=== PATIENT | female | born 1930 | race Two or more races ===

== ENCOUNTER 2017-11-08 02:41 | Observation (INO) | payer MEDICARE, BC ==
--- NOTE | 2017-11-08 03:00 | ED ---
General Adult HPI - General Chief complaint: Back Pain/Injury Stated complaint: Fall Time Seen by Provider: 11/08/17 02:41 Source: patient, EMS, RN notes reviewed Mode of arrival: EMS Limitations: physical limitation - History of Present Illness Initial comments: This is an 87-year-old female presents emergency Department after she had fallen outside of her house hitting her head on a doorknob and then falling onto her back. Patient went to [facility] where she was evaluated had CT of her head neck and thoracic and lumbar spine. Patient was diagnosed with a laceration to the head which was repaired at [facility] and diagnosed with left rib fractures at 11 and 12 L1 compression fracture and transverse process fracture of L1. According to the ER physician at that facility the patient was not feeling well enough to go home and there hospitalist did not feel comfortable keeping the patient there. - Related Data Home Medications Medication Instructions Recorded Confirmed Albuterol Nebulized [Ventolin 2.5 mg INHALATION RT-QID 04/18/16 07/24/16 Nebulized] Aspirin EC [Ecotrin Low Dose] 81 mg PO DAILY 04/18/16 07/24/16 Calcium Carbonate [Calcium] 300 mg PO DAILY 04/18/16 07/24/16 Cyanocobalamin [Vitamin B-12] 500 mcg PO DAILY 04/18/16 07/24/16 Herb-Lax 1 tab PO HS 04/18/16 07/24/16 Metoprolol Tartrate [Lopressor] 25 mg PO BID 04/18/16 07/24/16 [place]-3 Fatty Acids/Fish Oil [Fish 1 cap PO DAILY 04/18/16 07/24/16 Oil 1,000 mg Softgel] Omeprazole 20 mg PO BID 04/18/16 07/24/16 Simvastatin [Zocor] 40 mg PO HS 04/18/16 07/24/16 Vitamin E (Dl,Tocopheryl Acet) 400 unit PO DAILY 04/18/16 07/24/16 [Vitamin E] Ipratropium Nebulized [Atrovent 0.5 mg INHALATION RT-QID 07/24/16 07/24/16 Nebulized] Isosorbide Mononitrate ER [Imdur] 60 mg PO DAILY 07/24/16 07/24/16 Multivitamins, Thera [Multivitamin 1 tab PO DAILY 07/24/16 07/24/16 (formulary)] amLODIPine [Norvasc] 10 mg PO DAILY 07/24/16 07/24/16 Previous Rx's Medication Instructions Recorded Ipratropium Nebulized [Atrovent 0.5 mg INHALATION Q6HR #50 neb 07/24/16 Nebulized] predniSONE 20 mg PO BID #8 tab 07/24/16 Allergies Allergy/AdvReac Type Severity Reaction Status Date / Time amoxicillin [From Augmentin] Allergy Unknown Unknown Verified 11/08/17 02:54 clavulanic acid Allergy Unknown Unknown Verified 11/08/17 02:54 [From Augmentin] Cephalosporins Allergy Unknown Verified 07/24/16 15:58 sulfamethoxazole Allergy Unknown Verified 07/24/16 15:58 [From Bactrim] tetanus and diphtheria Allergy Itching Verified 11/08/17 02:54 toxoids trimethoprim [From Bactrim] Allergy Unknown Verified 07/24/16 15:58 Review of Systems ROS Statement: Those systems with pertinent positive or pertinent negative responses have been documented in the HPI. ROS Other: All systems not noted in ROS Statement are negative. Past Medical History Past Medical History: Coronary Artery Disease (CAD), COPD, GERD/Reflux, Hyperlipidemia, Hypertension, Myocardial Infarction ([place]), Osteoarthritis (OA) Additional Past Medical History / Comment(s): INCONT OF URINE WEARS A PAD, BRONCHITIS, UTI ON CIPRO, HOME O2 2 LITERS AT HS.DAUGHTER STATED "PT HAS HAS CHRONIC DIARRHEA FOR 20 YEARS." Last Myocardial Infarction Date:: 1993 History of Any Multi-Drug Resistant Organisms: None Reported Past Surgical History: Bladder Surgery, Cholecystectomy, Coronary Bypass/CABG, Heart Catheterization Additional Past Surgical History / Comment(s): CATARACTS Past Anesthesia/Blood Transfusion Reactions: No Reported Reaction Past Psychological History: No Psychological Hx Reported Smoking Status: Former smoker Past Alcohol Use History: None Reported Past Drug Use History: None Reported - Past Family History Father Family Medical History: COPD Additional Family Medical History / Comment(s): EMPHYSEMA Mother Family Medical History: Myocardial Infarction ([place]) General Exam - General Exam Comments Initial Comments: GENERAL: Patient is well-developed and well-nourished. Patient is nontoxic and well- hydrated and is in mild distress. ENT: Neck is soft and supple. No significant lymphadenopathy is noted. Oropharynx is clear. Moist mucous membranes. Neck has full range of motion without eliciting any pain. EYES: The sclera were anicteric and conjunctiva were pink and moist. Extraocular movements were intact and pupils were equal round and reactive to light. Eyelids were unremarkable. Patient has quite a bit of ecchymosis around the right eye without bony tenderness PULMONARY: Unlabored respirations. Good breath sounds bilaterally. No audible rales rhonchi or wheezing was noted. CARDIOVASCULAR: There is a regular rate and rhythm without any murmurs gallops or rubs. Patient has tenderness to the left lateral chest wall at about ribs 10, 11 and 12 ABDOMEN: Soft and nontender with normal bowel sounds. No palpable organomegaly was noted. There is no palpable pulsatile mass. SKIN: Patient has a laceration above the right eye which has been repaired NEUROLOGIC: Patient is alert and oriented x3. Cranial nerves II through XII are grossly intact. Motor and sensory are also intact. Normal speech, volume and content. Symmetrical smile. MUSCULOSKELETAL: Normal extremities with adequate strength and full range of motion. Patient has tenderness at the lumbar spine as well. Limitations: physical limitation Course Vital Signs 11/08/17 02:46 Temperature 97.6 F Pulse Rate 90 Respiratory 18 Rate Blood Pressure 166/79 O2 Sat by Pulse 95 Oximetry Medical Decision Making - Medical Decision Making EKG shows sinus rhythm at 82 bpm [place] interval is 240 QRS is 94 QT interval 424 QTC is 495. Patient's EKG shows no ST segment elevation. I reviewed the labs and the CTs and x-rays from [facility]. I spoke with Dr. javier of some physicians and admitted the patient. Disposition Clinical Impression: Fracture of rib of left side, Lumbar compression fracture, Lumbar transverse process fracture, Laceration of forehead Disposition: ADMITTED IP TO THIS HOSP Referrals: Benjamin Dietrich DO [Primary Care Provider] - 1-2 days Time of Disposition: 03:25
[2017-11-08] MEDS ORDERED: SODIUM CHLORIDE 0.9% 1,000 ML IV ONE (03:26)
[2017-11-08] MEDS ORDERED: MORPHINE SULFATE 4MG/4ML SYRG IVP PRN (03:27)
--- NOTE | 2017-11-08 05:26 | P.HPIM ---
History of Present Illness H&P Date: 11/08/17 Chief Complaint: Transferred from [place], fall, pain control The patient is a 87-year-old female was transferred from [place] after she presented to the ER there after she tripped on a rug and fell at home hitting the right side of her forehead and didn't fell backwards and hit her lower back onto a chair, there is no loss of consciousness or amnesia. The patient denied any precipitating symptoms such as chest pain shortness of breath dizziness or syncope. The patient sustained a small scalp laceration approximately 3 cm in length that was sutured in the ER [place]. She had a CT of the head/maxillofacial/cervical/lumbar and T-spine that showed acute fracture of the left 11th and 12th posterior ribs, acute compression fracture of the left transverse process of L1 and chronic compression fractures of T12 and L1. Apparently the ER in [place] was preparing to discharge patient home however there was some concern that her elderly and daughter to be unable to care for the patient, and that she would be a fall risk and that her pain would be difficult to control. Currently the patient feels pretty good was able to move in bed comfortably, perform straight leg raises without difficulty And reported to me that she was ambulatory when they were preparing her for discharge at [place]. Due to the above concerns they tried to admit her to the hospitalist there however they suggested a higher care of management and she was subsequently transferred here to [facility]. Review of the records indicates the patient has advanced COPD and does wear proximally 2 L of oxygen, she also has a history of MD coronary artery disease with a history of 2 vessel CABG aortic stenosis, hyperlipidemia essential hypertension and acid reflux. Review of her labs indicate that her CBC and CMP were pretty normal with exception of a mildly elevated white count at 11.5. Past Medical History Past Medical History: Coronary Artery Disease (CAD), COPD, GERD/Reflux, Hyperlipidemia, Hypertension, Myocardial Infarction ([place]), Osteoarthritis (OA) Additional Past Medical History / Comment(s): INCONT OF URINE WEARS A PAD, BRONCHITIS, UTI ON CIPRO, HOME O2 2 LITERS AT HS.DAUGHTER STATED "PT HAS HAS CHRONIC DIARRHEA FOR 20 YEARS." Last Myocardial Infarction Date:: 1993 History of Any Multi-Drug Resistant Organisms: None Reported Past Surgical History: Bladder Surgery, Cholecystectomy, Coronary Bypass/CABG, Heart Catheterization Additional Past Surgical History / Comment(s): CATARACTS Past Anesthesia/Blood Transfusion Reactions: No Reported Reaction Past Psychological History: No Psychological Hx Reported Smoking Status: Former smoker Past Alcohol Use History: None Reported Past Drug Use History: None Reported - Past Family History Father Family Medical History: COPD Additional Family Medical History / Comment(s): EMPHYSEMA Mother Family Medical History: Myocardial Infarction ([place]) Medications and Allergies Home Medications Medication Instructions Recorded Confirmed Type Albuterol Nebulized [Ventolin 2.5 mg INHALATION RT-QID 04/18/16 07/24/16 History Nebulized] Aspirin EC [Ecotrin Low Dose] 81 mg PO DAILY 04/18/16 07/24/16 History Calcium Carbonate [Calcium] 300 mg PO DAILY 04/18/16 07/24/16 History Cyanocobalamin [Vitamin B-12] 500 mcg PO DAILY 04/18/16 07/24/16 History Herb-Lax 1 tab PO HS 04/18/16 07/24/16 History Metoprolol Tartrate [Lopressor] 25 mg PO BID 04/18/16 07/24/16 History [place]-3 Fatty Acids/Fish Oil [Fish 1 cap PO DAILY 04/18/16 07/24/16 History Oil 1,000 mg Softgel] Omeprazole 20 mg PO BID 04/18/16 07/24/16 History Simvastatin [Zocor] 40 mg PO HS 04/18/16 07/24/16 History Vitamin E (Dl,Tocopheryl Acet) 400 unit PO DAILY 04/18/16 07/24/16 History [Vitamin E] Ipratropium Nebulized [Atrovent 0.5 mg INHALATION Q6HR #50 neb 07/24/16 Rx Nebulized] Ipratropium Nebulized [Atrovent 0.5 mg INHALATION RT-QID 07/24/16 07/24/16 History Nebulized] Isosorbide Mononitrate ER [Imdur] 60 mg PO DAILY 07/24/16 07/24/16 History Multivitamins, Thera [Multivitamin 1 tab PO DAILY 07/24/16 07/24/16 History (formulary)] amLODIPine [Norvasc] 10 mg PO DAILY 07/24/16 07/24/16 History predniSONE 20 mg PO BID #8 tab 07/24/16 Rx Allergies Allergy/AdvReac Type Severity Reaction Status Date / Time amoxicillin [From Augmentin] Allergy Unknown Unknown Verified 11/08/17 02:54 clavulanic acid Allergy Unknown Unknown Verified 11/08/17 02:54 [From Augmentin] Cephalosporins Allergy Unknown Verified 07/24/16 15:58 sulfamethoxazole Allergy Unknown Verified 07/24/16 15:58 [From Bactrim] tetanus and diphtheria Allergy Itching Verified 11/08/17 02:54 toxoids trimethoprim [From Bactrim] Allergy Unknown Verified 07/24/16 15:58 Physical Exam Vitals: Vital Signs Temp Pulse Resp BP Pulse Ox 11/08/17 02:46 97.6 F 90 18 166/79 95 Intake and Output 11/07/17 11/07/17 11/08/17 14:59 22:59 06:59 Other: Weight 47.627 kg Constitutional: No acute distress, conversant, pleasant, obvious facial trauma, sutured 3 cm head laceration with dressing applied Eyes: Anicteric sclerae, moist conjunctiva, no lid-lag, PERRLA, noted orbital contusion hematoma ENMT: NC/AT,Oropharynx clear, no erythema, exudates Neck:Supple, FROM, no masses, or JVD, No carotid bruits; No thyromegaly Lungs: Mild respiratory wheezes and bibasilar crackles, Clear to percussion, Normal respiratory effort, no accessory muscle use Cardiovascular: Heart regular in rate and rhythm, No murmurs, gallops, or rubs no peripheral edema Abdominal: Soft Nontender, nom distended, no guarding, no rebound or rigidity, Normoactive bowel sounds No hepatomegaly, No splenomegaly, No palpable mass No abdominal wall hernia noted Skin: Normal temperature, tone, texture, turgor, No induration No subcutaneous nodules, No rash, lesions, No ulcers Extremities:No digital cyanosis No clubbing, Pedal pulses intact and symmetrical Radial pulses intact and symmetrical Normal gait and station, No calf tenderness Psychiatric: Alert and oriented to person, place and time, Appropriate affect Intact judgement Neuro: Muscles Strength 5/5 in all 4 extremities, Sensation to light touch grossly present throughout, Cranial nerves II-XII grossly intact. No focal sensory deficits Assessment and Plan Assessment: Chronic medical conditions Essential hypertension GERD Dyslipidemia Coronary artery disease with CABG X2 History of MD COPD (1) Lumbar transverse process fracture Current Visit: Yes Status: Acute Code(s): S32.009A - UNSP FRACTURE OF UNSP LUMBAR VERTEBRA, INIT FOR CLOS FX SNOMED Code(s): 626692590 (2) Acute exacerbation of chronic obstructive airways disease Current Visit: No Status: Acute Code(s): J44.1 - CHRONIC OBSTRUCTIVE PULMONARY DISEASE W (ACUTE) EXACERBATION SNOMED Code(s): 090272506 (3) Laceration of forehead Current Visit: Yes Status: Acute Code(s): S01.81XA - LACERATION W/O FOREIGN BODY OF OTH PART OF HEAD, INIT ENCNTR SNOMED Code(s): 350705199 (4) Lumbar compression fracture Current Visit: Yes Status: Acute Code(s): S32.000A - WEDGE COMPRESSION FRACTURE OF UNSP LUMBAR VERTEBRA, INIT SNOMED Code(s): 737529159 (5) Fracture of rib of left side Current Visit: Yes Status: Acute Code(s): S22.32XA - FRACTURE OF ONE RIB, LEFT SIDE, INIT FOR CLOS FX SNOMED Code(s): 62808312 Plan: The patient is admitted anticipated greater than 2 midnight stay with fall sustaining acute left rib fractures, acute compression fracture of the transverse processes of L1, and head laceration repaired in [place]. We'll get an orthopedic consult, manage her pain with oxycodone and Motrin. Consult PTOT. Check a chest x-ray, morning labs CBC CMP BNP and treat her for mild COPD exacerbation scheduled bronchodilator DuoNeb breathing treatment and oral prednisone. We'll resume her home antihypertensive therapy. Continue to follow her clinical course
[2017-11-08] MEDS ORDERED: oxyCODONE-APAP 5-325MG 1 EACH TAB PO PRN (05:31)
[2017-11-08] MEDS ORDERED: predniSONE 20 MG TAB PO STA (05:44)
[2017-11-08] MEDS: BUDESONIDE 0.5 MG/2 ML NEBU INHALATION SCH ×2 (07:38→20:02)
[2017-11-08] MEDS: IPRATROPIUM-ALBUTEROL 3 ML NEB INHALATION SCH ×4 (07:38→20:02)
[2017-11-08 07:50] LABS: Basophils % (A) 0 %; Eosinophils # (A) 0.1 k/uL (0-0.7); Eosinophils % (A) 1 %; HCT 38.9 % (34.0-46.0); HGB 12.4 gm/dL (11.4-16.0); Lymphocytes # (A) 1.4 k/uL (1.0-4.8); Lymphocytes % (A) 16 %; MCH 30.2 pg (25.0-35.0); MCHC 31.9 g/dL (31.0-37.0); MCV 94.7 fL (80.0-100.0); Mean Platelet Volume 7.6; Monocytes # (A) 0.5 k/uL (0-1.0); Monocytes % (A) 6 %; Neutrophils # (A) 6.3 k/uL (1.3-7.7); Neutrophils % (A) 74 %; Platelet Count 234 k/uL (150-450); RBC 4.11 m/uL (3.80-5.40); RDW 12.9 % (11.5-15.5); WBC 8.5 k/uL (3.8-10.6)
[2017-11-08 07:54] LABS: ALT 23 U/L (9-52); AST 27 U/L (14-36); Albumin 4.2 g/dL (3.5-5.0); Alkaline Phosphatase 90 U/L (38-126); Anion Gap 13 mmol/L; Blood Urea Nitrogen 13 mg/dL (7-17); Calcium 9.4 mg/dL (8.4-10.2); Carbon Dioxide 29 mmol/L (22-30); Chloride 99 mmol/L (98-107); Glucose 113 mg/dL (74-99); Sodium 141 mmol/L (137-145); Total Bilirubin 0.5 mg/dL (0.2-1.3)
[2017-11-08] MEDS ORDERED: ONDANSETRON 4 MG TAB PO PRN (08:29)
--- NOTE | 2017-11-08 09:00 | XR ---
EXAMINATION TYPE: XR chest 2V DATE OF EXAM: 11/08/2017 HISTORY: cOPD/fall/rib Fx. REFERENCE: Previous study dated 07/24/2016. FINDINGS: There has been a midline sternotomy. The lungs are overinflated. There is chronic interstitial change. This has worsened slightly. There i s no evidence of pneumonia or edema. The heart is not enlarged. Pleural spaces are clear. There is a wedge compression fracture of the T12 vertebral body. This was noted on a previous, recent CT scan of the spine dated 11/07/2017. IMPRESSION: 1. COPD. 2. MILD, WORSENING INTERSTITIAL CHANGE. 3. WEDGE COMPRESSION FRACTURE, T12.
[2017-11-08] MEDS: DOCUSATE 100 MG CAP PO SCH ×2 (10:08→21:42)
[2017-11-08] MEDS: CITALOPRAM HYDROBROMIDE 20 MG TAB PO SCH (10:08)
[2017-11-08] MEDS: METOPROLOL TARTRATE 25 MG TAB PO SCH ×2 (10:08→21:42)
[2017-11-08] MEDS: IBUPROFEN 400 MG TAB PO SCH ×3 (10:09→21:41)
[2017-11-08] MEDS: FLUTICASONE 50MCG/SPRAY NASAL 16GM EA NOSTRIL SCH (10:09)
[2017-11-08] MEDS: PANTOPRAZOLE 40 MG TABLET PO SCH (10:09)
[2017-11-08] MEDS: ISOSORBIDE MONONITRATE ER 60 MG TAB.ER.24H PO SCH (10:09)
--- NOTE | 2017-11-08 13:08 | P.PN ---
Progress Note - Text Progress Note Date: 11/08/17 patient was seen during morning rounds, no new complaints, awaiting further recs from surgical team
[2017-11-08] MEDS ORDERED: MORPHINE ORAL SOLN 10 MG/5 ML CUP PO PRN (13:15)
[2017-11-08] MEDS: ATORVASTATIN 10 MG TAB PO SCH (21:42)
[2017-11-09] MEDS: BUDESONIDE 0.5 MG/2 ML NEBU INHALATION SCH ×2 (07:26→18:36)
[2017-11-09] MEDS: IPRATROPIUM-ALBUTEROL 3 ML NEB INHALATION SCH ×5 (07:26→18:36)
[2017-11-09] MEDS: PANTOPRAZOLE 40 MG TABLET PO SCH (09:32)
[2017-11-09] MEDS: DOCUSATE 100 MG CAP PO SCH ×2 (09:32→21:38)
[2017-11-09] MEDS: IBUPROFEN 400 MG TAB PO SCH ×3 (09:32→21:39)
[2017-11-09] MEDS: METOPROLOL TARTRATE 25 MG TAB PO SCH ×2 (09:32→21:37)
[2017-11-09] MEDS: CITALOPRAM HYDROBROMIDE 20 MG TAB PO SCH (09:32)
[2017-11-09] MEDS: predniSONE 20 MG TAB PO SCH (09:32)
[2017-11-09] MEDS: ISOSORBIDE MONONITRATE ER 60 MG TAB.ER.24H PO SCH (09:32)
[2017-11-09] MEDS: FLUTICASONE 50MCG/SPRAY NASAL 16GM EA NOSTRIL SCH (09:33)
--- NOTE | 2017-11-09 09:45 | P.CNOR ---
History of Present Illness - HPI Consult date: 11/09/17 History of present illness: This is a 87-year-old female who was admitted after a fall on 11/08/2017. Daughter who is present in the room states the patient tripped over a rug, hit her head on a doorknob and hit her back on a nearby chair. Orthopedics was consulted due to compression fracture and transverse process fracture of lumbar spine. Patient also sustained rib fractures during the fall. Daughter states that the patient did hit her head, but a CT of the head and neck was negative. Daughter states that the patient has been up and walking with a walker, and is very shaky. Patient states that the pain in her back is well controlled. Daughter states the patient received her brace yesterday and wears it when she is out of bed. Patient denies any new complaints today, numbness, tingling, fever or chills. Review of Systems See HPI. Past Medical History Past Medical History: Coronary Artery Disease (CAD), COPD, GERD/Reflux, Hyperlipidemia, Hypertension, Myocardial Infarction ([place]), Osteoarthritis (OA) Additional Past Medical History / Comment(s): INCONT OF URINE WEARS A PAD, BRONCHITIS, UTI ON CIPRO, HOME O2 2 LITERS AT HS.DAUGHTER STATED "PT HAS HAS CHRONIC DIARRHEA FOR 20 YEARS." Last Myocardial Infarction Date:: 1993 History of Any Multi-Drug Resistant Organisms: None Reported Past Surgical History: Bladder Surgery, Cholecystectomy, Coronary Bypass/CABG, Heart Catheterization Additional Past Surgical History / Comment(s): CATARACTS Past Anesthesia/Blood Transfusion Reactions: No Reported Reaction Past Psychological History: No Psychological Hx Reported Smoking Status: Former smoker Past Alcohol Use History: None Reported Past Drug Use History: None Reported - Past Family History Father Family Medical History: COPD Additional Family Medical History / Comment(s): EMPHYSEMA Mother Family Medical History: Myocardial Infarction ([place]) Medications and Allergies Home Medications Medication Instructions Recorded Confirmed Type Metoprolol Tartrate [Lopressor] 25 mg PO BID 04/18/16 11/08/17 History Omeprazole 20 mg PO BID 04/18/16 11/08/17 History Simvastatin [Zocor] 40 mg PO HS 04/18/16 11/08/17 History Isosorbide Mononitrate ER [Imdur] 60 mg PO DAILY 07/24/16 11/08/17 History amLODIPine [Norvasc] 10 mg PO DAILY 07/24/16 11/08/17 History Albuterol Nebulized [Ventolin 2.5 mg INHALATION RT-Q6H 11/08/17 11/08/17 History Nebulized] Ipratropium Nebulized [Atrovent 0.5 mg INHALATION RT-Q6H 11/08/17 11/08/17 History Nebulized] Allergies Allergy/AdvReac Type Severity Reaction Status Date / Time amoxicillin [From Augmentin] Allergy Unknown Unknown Verified 11/08/17 11:25 clavulanic acid Allergy Unknown Unknown Verified 11/08/17 11:25 [From Augmentin] Cephalosporins Allergy Unknown Verified 11/08/17 11:25 sulfamethoxazole Allergy Unknown Verified 11/08/17 11:25 [From Bactrim] tetanus and diphtheria Allergy Itching Verified 11/08/17 11:25 toxoids trimethoprim [From Bactrim] Allergy Unknown Verified 11/08/17 11:25 Physical Examination On exam patient is alert and lying comfortably in bed. Patient is hard of hearing. There is no swelling, erythema or ecchymosis over the lumbar spine. No obvious deformity. Patient has good range of motion of bilateral lower extremities. Sensation intact bilaterally. Bilateral lower extremities are warm and well perfused. Patient has full foot and ankle motion bilaterally without pain or difficulty. Neurovascular status and circulatory status are intact. Results - Labs Labs: H & H 11/08/17 Range/Units 07:12 Hgb 12.4 (11.4-16.0) gm/dL Hct 38.9 (34.0-46.0) % Result Diagrams: 11/08/17 07:12 11/08/17 07:12 Assessment and Plan (1) Fall Current Visit: Yes Status: Acute Code(s): W19.XXXA - UNSPECIFIED FALL, INITIAL ENCOUNTER SNOMED Code(s): 0920610 (2) Fracture of rib of left side Current Visit: Yes Status: Acute Code(s): S22.32XA - FRACTURE OF ONE RIB, LEFT SIDE, INIT FOR CLOS FX SNOMED Code(s): 60302310 (3) Lumbar compression fracture Current Visit: Yes Status: Acute Code(s): S32.000A - WEDGE COMPRESSION FRACTURE OF UNSP LUMBAR VERTEBRA, INIT SNOMED Code(s): 298329398 (4) Lumbar transverse process fracture Current Visit: Yes Status: Acute Code(s): S32.009A - UNSP FRACTURE OF UNSP LUMBAR VERTEBRA, INIT FOR CLOS FX SNOMED Code(s): 859311058 Plan: 1. Wear brace when out of bed. 2. Use walker for ambulation at all times. 3. Physical therapy consult. 4. Continue pain control. 5. Will continue to follow the patient closely. No surgical intervention planned.
[2017-11-09] MEDS: LIDOCAINE 5% PATCH TOPICAL SCH (12:43)
--- NOTE | 2017-11-09 13:38 | P.PN ---
Subjective Progress Note Date: 11/09/17 Principal diagnosis: Patient is seen in follow-up for lumbar compression fracture in COPD exacerbation Patient seen and examined today, her daughter at bedside, she continues to have back pain radiating to the left side of the chest, however she is tolerating by mouth intake denies any fevers or chills denies any shortness of breath continues to use oxygen through nasal cannula at 2 L. Objective - Vital Signs Vital signs: Vital Signs Temp 98.5 F 11/09/17 07:00 Pulse 84 11/09/17 11:26 Resp 16 11/09/17 07:00 BP 111/51 11/09/17 07:00 Pulse Ox 91 L 11/09/17 07:00 Intake & Output 11/08/17 11/09/17 11/09/17 18:59 06:59 18:59 Intake Total 600 Balance 600 Intake: Intake, IV Titration 600 Amount Sodium Chloride 0.9% 1, 600 000 ml @ 75 mls/hr IV . [id number] Rx#:[id number] Other: # Voids 2 1 - Exam Constitutional: vital signs stable, Not in acute distress, pleasant, conversant , sutured laceration of the right side of the forehead 3 cm in length no swelling no ecchymosis looks, intact and dry. Bruising around the eyes Lungs: Decreased breath sounds bilaterally, mild expiratory wheezes. normal respiratory effort Cardiovascular: Regular rate and rhythm, no murmurs, no gallops, no rubs, no peripheral edema Gastrointestinal: Soft, no tenderness to palpation, positive bowel sounds Extremities: No digital cyanosis or clubbing, peripheral pulses palpable and equal over bilateral radial arteries and dorsalis pedis artery, no calf muscle tenderness Psych: Alert, oriented to place, person appropriate affect, intact judgment - Labs CBC & Chem 7: 11/08/17 07:12 11/08/17 07:12 Assessment and Plan Assessment: 87-year-old female with history of CAD, COPD and hypertension. Presented to the hospital after accidental fall at home without loss of consciousness resulted in compression fracture of T12, L1, left sided 11th, 12th rib fracture , laceration over the right side of the forehead status post suturing. She was also found to have acute mild COPD exacerbation, she is on home oxygen 2 L nasal cannula. Patient was transferred from [place] to our hospital for further evaluation by orthopedic team for any recommendations regarding surgical intervention. Orthopedic recommended no immediate surgical intervention, offered the back brace while patient is awake and moving, and further evaluation no patient for possible need for kyphoplasty. Currently she is being managed for mild acute COPD exacerbation. Patient is also being evaluated by PT/OT for possible placement at postacute care facility for some rehab. Plan: #Lumbar transverse process fracture #T12 and L1 compression fracture Pain control Orthopedic evaluated the patient, no immediate recommendations for any surgical intervention, outpatient follow-up for possible kyphoplasty Orthopedic recommended to wear a brace while awake #Hypertension currently controlled continue home meds #Mild COPD exacerbation Continue with prednisone by mouth Continue with home oxygen at 2 L nasal cannula Continue with ICS DuoNeb's when necessary Incentive spirometry #History of CAD status post CABG by 2 Continue with statin and aspirin Metoprolol Imdur #Hyperlipidemia Continue statin #Traumatic laceration of the forehead, status post suturing Local wound care #DVT prophylaxis Heparin subcu 3 times a day #Rib fractures Pain control Advanced age and debility, PT/OT evaluation Possible placement and postacute care Lidocaine patch to be used for pain control Check morning labs
[2017-11-09] MEDS: HEPARIN SODIUM,PORCINE 5,000 UNIT/ML 1 ML VIAL SQ SCH (15:48)
[2017-11-09] MEDS: ATORVASTATIN 10 MG TAB PO SCH (21:37)
[2017-11-10] MEDS: HEPARIN SODIUM,PORCINE 5,000 UNIT/ML 1 ML VIAL SQ SCH ×2 (00:37→07:15)
[2017-11-10 04:14] VITALS: RESP 20; TEMP 97.9
[2017-11-10 07:03] LABS: Anion Gap 10 mmol/L; Blood Urea Nitrogen 21 mg/dL (7-17); Calcium 9.3 mg/dL (8.4-10.2); Carbon Dioxide 32 mmol/L (22-30); Chloride 96 mmol/L (98-107); Glucose 87 mg/dL (74-99); Potassium 4.7 mmol/L (3.5-5.1); Sodium 138 mmol/L (137-145)
[2017-11-10] MEDS: IBUPROFEN 400 MG TAB PO SCH (07:13)
[2017-11-10] MEDS: LIDOCAINE 5% PATCH TOPICAL SCH (07:14)
[2017-11-10] MEDS: METOPROLOL TARTRATE 25 MG TAB PO SCH (07:14)
[2017-11-10] MEDS: ISOSORBIDE MONONITRATE ER 60 MG TAB.ER.24H PO SCH (07:15)
[2017-11-10] MEDS: predniSONE 20 MG TAB PO SCH (07:15)
[2017-11-10] MEDS: PANTOPRAZOLE 40 MG TABLET PO SCH (07:16)
[2017-11-10] MEDS: FLUTICASONE 50MCG/SPRAY NASAL 16GM EA NOSTRIL SCH (07:16)
[2017-11-10] MEDS: DOCUSATE 100 MG CAP PO SCH (07:16)
[2017-11-10] MEDS: CITALOPRAM HYDROBROMIDE 20 MG TAB PO SCH (07:16)
[2017-11-10 07:32] LABS: Basophils % (A) 0 %; Eosinophils % (A) 0 %; HCT 34.9 % (34.0-46.0); HGB 11.7 gm/dL (11.4-16.0); Lymphocytes # (A) 1.5 k/uL (1.0-4.8); Lymphocytes % (A) 14 %; MCH 31.1 pg (25.0-35.0); MCHC 33.5 g/dL (31.0-37.0); Mean Platelet Volume 7.4; Monocytes # (A) 0.6 k/uL (0-1.0); Monocytes % (A) 6 %; Neutrophils # (A) 8.2 k/uL (1.3-7.7); Neutrophils % (A) 78 %; Platelet Count 251 k/uL (150-450); RBC 3.76 m/uL (3.80-5.40); RDW 12.8 % (11.5-15.5); WBC 10.5 k/uL (3.8-10.6)
[2017-11-10] MEDS: BUDESONIDE 0.5 MG/2 ML NEBU INHALATION SCH (07:46)
[2017-11-10] MEDS: IPRATROPIUM-ALBUTEROL 3 ML NEB INHALATION SCH ×2 (07:46→11:20)
--- NOTE | 2017-11-10 08:41 | P.PN ---
Progress Note - Text Progress Note Date: 11/10/17 Patient is a very pleasant 87-year-old female with significant hearing loss who is seen and examined at the bedside for follow-up evaluation for acute fractures of the left 11th and 12th posterior ribs, acute L1 left transverse process fracture, and chronic compression fracture deformities at T12 and L1 that were noted to be found on CT imaging taken at [facility].. She is sitting upright in a bedside chair. She does have a Spinomed TLSO brace intact. She denies any lower extremity weakness or radiculopathy bilaterally. She is moving her legs freely without difficulty. She states her back pain has not been adequately controlled this morning. She continues to wear her brace as instructed. Patient has a history of advanced COPD is currently on O2 nasal cannula. She continues to be seen by medicine. She is known have sustained a fall and presented to the emergency department in [place] after tripping on a rug at home, falling, hitting the right side of her forehead and then falling backwards onto a chair. She was transferred to [facility] for further evaluation. She does have a sutured laceration of the right side of her forehead approximately 3 cm in length and bruising around the eyes following her fall. Physical exam: Patient is awake, alert, and oriented 3 Patient has significant hearing loss and has some difficulty with communication due to her hearing loss Vital signs stable Good chest excursion with deep inspiration and expiration Abdomen soft nontender Patient is sitting upright with her Spinomed TLSO brace intact No significant pain with palpation over the thoracic or lumbar spine Dorsiflexion, plantarflexion, and extensor hallucis longus positive sustained bilaterally Lower extremity strength 5/5 bilaterally No signs or symptoms of DVT; no calf pain No pain with internal and external rotation of the hips bilaterally Neurovascularly intact Assessment: Acute traumatic fracture of the left 11th and 12th posterior ribs Acute L1 left transverse process fracture 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 We will plan to continue with conservative treatment at this time. Patient is to see prescribed and fitted with a Spinomed TLSO brace. Previous imaging indicates patient sustained acute traumatic fracture of the left 11th and 12th posterior ribs, acute L1 left transverse process fracture, and has a history of chronic compression fracture deformities at T12 and L1. Patient should wear this brace while sitting upright at greater than 45, during ambulation, during increase activities, and while working with physical therapy. Brace does not having worn while lying in bed or while bathing. Patient should avoid excessive bending, twisting, lifting; no lifting greater than 10 pounds. Patient may work with physical therapy increase mobility and ambulation with her brace intact. We are currently planning for surgical intervention in regards to her thoracolumbar spine. At this time, will plan to have her follow- up in the outpatient setting for further evaluation and treatment. Patient is clear for discharge from orthopedic spine standpoint. 2. Medicine to continue following the patient closely for her other medical diagnoses including advanced COPD 3. Continue pain control with medications as prescribed 4. Following discharge, patient may follow-up with Kirk Adams PA-C or Dr. Chapin José at [facility] in approximately 2-3 weeks for further evaluation 5. Patient will be discussed in detail with Dr. Chapin José
[2017-11-10] MEDS ORDERED: ASPIRIN 81 MG PO SCH (09:00)
[2017-11-10 09:12] VITALS: BP 126/52
[2017-11-10 11:23] VITALS: PULSE 80
--- NOTE | 2017-11-10 12:49 | P.DS ---
Providers Date of admission: 11/08/17 03:26 Attending physician: Paul Reyes MD Consults: 11/08/17 05:03 Consult Physician Routine Consulting Provider: Jon Geronimo Consult Reason/Comments: Fall - L1 compression fracture, L1 transverse process fracture Do you want consulting provider notified?: Yes, Notify in am [facility] Course: Final diagnosis at discharge # Accidental (trip and fall) trauma without loss of consciousness #Lumbar transverse process fracture #Chronic T12 and Acute L1 vertebrae compression fracture #. Acute left 11th and 12th rib fracture # traumatic laceration of the forehead s/p suturing # Mild, End stage COPD, acute exacerbation Secondary diagnosis #. CAD s/p CABG # Hyperlipidemia Hospital course 87-year-old female with history of CAD, COPD and hypertension. Presented to the hospital after accidental fall at home without loss of consciousness resulted in compression fracture of T12 (chronic), L1(acute), left sided 11th, 12th rib fracture, laceration over the right side of the forehead status post suturing. She was also found to have acute mild COPD exacerbation, she is on home oxygen 2 L nasal cannula. Patient was transferred from [place] to our hospital for further evaluation by orthopedic team for any recommendations regarding surgical intervention. Orthopedic recommended no immediate surgical intervention, offered the back brace while patient is awake and moving, and further evaluation on patient for possible need for kyphoplasty as outpatient . Currently she is being managed for mild acute COPD exacerbation breathing treatments around the clock, and PO systemic steroids, she will be discharge to finish a 5 day course of prednisone, LABA/ICS, spiriva, continue home oxygen , and duoneb PRN. Patient is also being evaluated by PT/OT for possible placement at postacute care facility for some rehab however she did not qualify. patient will be discharged home as she was cleared by orthopedics, with home care. patient and family in agreement and verbalized understanding of the plan patient seen and examined on day of discharge , pain managed with lidocaine patch locally and motrin PRN, tolerating PO intake. patient feels ok at this time, and eager to go home. Constitutional: vital signs stable, Not in acute distress, pleasant, conversant , sutured laceration of the right side of the forehead no swelling no ecchymosis looks, intact and dry. Bruising around the right eye Lungs: Decreased breath sounds bilaterally, mild expiratory wheezes. normal respiratory effort Cardiovascular: Regular rate and rhythm, no murmurs, no gallops, no rubs, no peripheral edema Gastrointestinal: Soft, no tenderness to palpation, positive bowel sounds Extremities: No digital cyanosis , peripheral pulses palpable and equal over bilateral radial arteries and dorsalis pedis artery, no calf muscle tenderness Psych: Alert, oriented to place, person appropriate affect, intact judgment discharge home with home care, in stable clinical condition OP follow up with ortho and PCP remove sutures 7 days after placement , on 11/14/2017 Patient Condition at Discharge: Stable Plan - Discharge Summary Discharge Rx Participant: Yes New Discharge Prescriptions: New Aspirin [Adult Low Dose Aspirin EC] 81 mg PO DAILY #100 tablet. Budesonide-Formot 160-4.5 Mcg [Symbicort 160-4.5 Mcg Inhaler] 2 puff INHALATION BID #1 inhaler Fluticasone Nasal [place] [Flonase Nasal [place]] 2 spray EA NOSTRIL DAILY #1 bottle Ibuprofen [Motrin] 400 mg PO TID PRN #24 tab PRN Reason: Pain Ipratropium-Albuterol Nebulize [Duoneb 0.5 mg-3 mg/3 ml Soln] 3 ml INHALATION RT-QID #40 ampul.neb Lidocaine 5% Patch [Lidoderm 5% Patch] 1 patch TOPICAL DAILY #10 patch predniSONE 40 mg PO DAILY #6 tab Tiotropium [place] [Spiriva] 1 cap INHALATION DAILY #1 device Continue Simvastatin [Zocor] 40 mg PO HS Omeprazole 20 mg PO BID Metoprolol Tartrate [Lopressor] 25 mg PO BID Isosorbide Mononitrate ER [Imdur] 60 mg PO DAILY amLODIPine [Norvasc] 10 mg PO DAILY Discontinued Albuterol Nebulized [Ventolin Nebulized] 2.5 mg INHALATION RT-Q6H Ipratropium Nebulized [Atrovent Nebulized] 0.5 mg INHALATION RT-Q6H Discharge Medication List Metoprolol Tartrate [Lopressor] 25 mg PO BID 04/18/16 [History] Omeprazole 20 mg PO BID 04/18/16 [History] Simvastatin [Zocor] 40 mg PO HS 04/18/16 [History] Isosorbide Mononitrate ER [Imdur] 60 mg PO DAILY 07/24/16 [History] amLODIPine [Norvasc] 10 mg PO DAILY 07/24/16 [History] Aspirin [Adult Low Dose Aspirin EC] 81 mg PO DAILY #100 tablet. 11/10/17 [Rx] Budesonide-Formot 160-4.5 Mcg [Symbicort 160-4.5 Mcg Inhaler] 2 puff INHALATION BID #1 inhaler 11/10/17 [Rx] Fluticasone Nasal [place] [Flonase Nasal [place]] 2 spray EA NOSTRIL DAILY #1 bottle 11/10/17 [Rx] Ibuprofen [Motrin] 400 mg PO TID PRN #24 tab 11/10/17 [Rx] Ipratropium-Albuterol Nebulize [Duoneb 0.5 mg-3 mg/3 ml Soln] 3 ml INHALATION RT -QID #40 ampul.neb 11/10/17 [Rx] Lidocaine 5% Patch [Lidoderm 5% Patch] 1 patch TOPICAL DAILY #10 patch 11/10/17 [Rx] Tiotropium [place] [Spiriva] 1 cap INHALATION DAILY #1 device 11/10/17 [Rx] predniSONE 40 mg PO DAILY #6 tab 11/10/17 [Rx] Follow up Appointment(s)/Referral(s): Benjamin Dietrich, [Primary Care Provider] - 1-2 days Kirk Adams PAC [PHYSICIAN MANAGER PROJECT] - 2 Weeks (Patient may follow-up with Kirk Adams PA-C or Dr. Chapin José at [facility] in 2-3 weeks following discharge. ) Patient Instructions/Handouts: Emphysema (DC), COPD (Chronic Obstructive Pulmonary Disease) (DC), Nutrition Guidelines for People with COPD (DC), Vertebral Compression Fracture (DC) Activity/Diet/Wound Care/Special Instructions: 1. Patient may wear Spinomed TLSO brace for comfort and support while sitting upright at greater than 45, while working with therapy, and while ambulating; patient does not have to wear the brace while lying in bed or bathing 2. Patient should avoid excessive bending, twisting, and lifting; no lifting greater than 10 pounds 3. [facility] - [phone] Care Plan Goals (MU): remove forehead sutures on Friday11/14/2017 Discharge Disposition: HOME WITH HOME HEALTH SERVICES
== END 2017-11-10 15:00 | disposition home health service (06) ==
LOC: EC 02:41 → INTOOBSV 03:26 → 3SUR 03:26
PROVIDERS: ADMIT Family Medicine; ATTEND Family Medicine
DX: S32.019A Unspecified fracture of first lumbar vertebra, initial encounter for closed fracture (principal); S22.080A Wedge compression fracture of T11-T12 vertebra, initial encounter for closed fracture; S22.42XA Multiple fractures of ribs, left side, initial encounter for closed fracture; S01.81XA Laceration without foreign body of other part of head, initial encounter; J44.1 Chronic obstructive pulmonary disease with (acute) exacerbation; I25.10 Atherosclerotic heart disease of native coronary artery without angina pectoris; Z95.1 Presence of aortocoronary bypass graft; E78.5 Hyperlipidemia, unspecified; I10 Essential (primary) hypertension; W01.190A Fall on same level from slipping, tripping and stumbling with subsequent striking against furniture, initial encounter; Y92.009 Unspecified place in unspecified non-institutional (private) residence as the place of occurrence of the external cause; K21.9 Gastro-esophageal reflux disease without esophagitis; I25.2 Old myocardial infarction; Z99.81 Dependence on supplemental oxygen; I35.0 Nonrheumatic aortic (valve) stenosis; D72.829 Elevated white blood cell count, unspecified; M19.90 Unspecified osteoarthritis, unspecified site; R32 Unspecified urinary incontinence; Z87.09 Personal history of other diseases of the respiratory system; Z90.49 Acquired absence of other specified parts of digestive tract; Z87.891 Personal history of nicotine dependence; Z79.82 Long term (current) use of aspirin; Z79.899 Other long term (current) drug therapy; Z79.52 Long term (current) use of systemic steroids; Z88.2 Allergy status to sulfonamides; Z88.0 Allergy status to penicillin; Z88.7 Allergy status to serum and vaccine; H91.90 Unspecified hearing loss, unspecified ear
CPT/HCPCS: 99285 ×2; 96374 ×2; 96361 ×2; 96372 ×2; 94640 ×6; 94760 ×2; 97116; 97110; 97162; 83880; 80053; 80048; 85025 ×2; 71046; G0378 ×3; J1644 ×2; J7512 ×3; J2270

== ENCOUNTER 2018-05-22 12:04 | Inpatient (IN) | payer MEDICARE, BC ==
[2018-05-22] MEDS ORDERED: MIDAZOLAM HCL 100 MG in SODIUM CHLORIDE 0.9% 80 ML IV ONE (12:19)
[2018-05-22] MEDS ORDERED: NALOXONE 0.4 MG/ML 1 ML VIAL IV PRN (12:30)
[2018-05-22] MEDS ORDERED: IPRATROPIUM-ALBUTEROL 3 ML NEB INHALATION PRN (12:30)
--- NOTE | 2018-05-22 12:34 | ED ---
General Adult HPI - General Stated complaint: Respitory Failure Time Seen by Provider: 05/22/18 12:07 Source: EMS, RN notes reviewed, old records reviewed - History of Present Illness Initial comments: 87-year-old female presenting as transfer from outside hospital for hypoxic hypercapnic respiratory failure. Patient was intubated at outside institution. She was initially evaluated, found to be unresponsive, and hypoxic. History obtained by reviewing the medical record and from EMS. Patient had complained of some abdominal pain, she was found at home unresponsive. She normally wears supplemental oxygen 2417 however she was found without her oxygen. Unknown how long she was without supplemental oxygen. Patient did have workup for both altered mental status and abdominal pain prior to transfer. - Related Data Home Medications Medication Instructions Recorded Confirmed Metoprolol Tartrate [Lopressor] 25 mg PO BID 04/18/16 11/08/17 Omeprazole 20 mg PO BID 04/18/16 11/08/17 Simvastatin [Zocor] 40 mg PO HS 04/18/16 11/08/17 Isosorbide Mononitrate ER [Imdur] 60 mg PO DAILY 07/24/16 11/08/17 amLODIPine [Norvasc] 10 mg PO DAILY 07/24/16 11/08/17 Previous Rx's Medication Instructions Recorded Aspirin [Adult Low Dose Aspirin EC] 81 mg PO DAILY #100 tablet. 11/10/17 Budesonide-Formot 160-4.5 Mcg 2 puff INHALATION BID #1 inhaler 11/10/17 [Symbicort 160-4.5 Mcg Inhaler] Fluticasone Nasal [place] [Flonase 2 spray EA NOSTRIL DAILY #1 bottle 11/10/17 Nasal [place]] Ibuprofen [Motrin] 400 mg PO TID PRN #24 tab 11/10/17 Ipratropium-Albuterol Nebulize 3 ml INHALATION RT-QID #40 11/10/17 [Duoneb 0.5 mg-3 mg/3 ml Soln] ampul.neb Lidocaine 5% Patch [Lidoderm 5% 1 patch TOPICAL DAILY #10 patch 11/10/17 Patch] Tiotropium [place] [Spiriva] 1 cap INHALATION DAILY #1 device 11/10/17 predniSONE 40 mg PO DAILY #6 tab 11/10/17 Allergies Allergy/AdvReac Type Severity Reaction Status Date / Time amoxicillin [From Augmentin] Allergy Unknown Unknown Verified 11/08/17 11:25 clavulanic acid Allergy Unknown Unknown Verified 11/08/17 11:25 [From Augmentin] Cephalosporins Allergy Unknown Verified 11/08/17 11:25 sulfamethoxazole Allergy Unknown Verified 11/08/17 11:25 [From Bactrim] tetanus and diphtheria Allergy Itching Verified 11/08/17 11:25 toxoids trimethoprim [From Bactrim] Allergy Unknown Verified 11/08/17 11:25 Review of Systems ROS Statement: Those systems with pertinent positive or pertinent negative responses have been documented in the HPI. ROS Other: All systems not noted in ROS Statement are negative. Past Medical History Past Medical History: Coronary Artery Disease (CAD), COPD, GERD/Reflux, Hyperlipidemia, Hypertension, Myocardial Infarction ([place]), Osteoarthritis (OA) Additional Past Medical History / Comment(s): INCONT OF URINE WEARS A PAD, BRONCHITIS, UTI ON CIPRO, HOME O2 2 LITERS AT HS.DAUGHTER STATED "PT HAS HAS CHRONIC DIARRHEA FOR 20 YEARS." Last Myocardial Infarction Date:: 1993 History of Any Multi-Drug Resistant Organisms: None Reported Past Surgical History: Bladder Surgery, Cholecystectomy, Coronary Bypass/CABG, Heart Catheterization Additional Past Surgical History / Comment(s): CATARACTS Past Anesthesia/Blood Transfusion Reactions: No Reported Reaction Past Psychological History: No Psychological Hx Reported Smoking Status: Former smoker Past Alcohol Use History: None Reported Past Drug Use History: None Reported - Past Family History Father Family Medical History: COPD Additional Family Medical History / Comment(s): EMPHYSEMA Mother Family Medical History: Myocardial Infarction ([place]) General Exam General appearance: other (Intubated and sedated) Head exam: Present: atraumatic, normocephalic Eye exam: Present: normal appearance, PERRL Neck exam: Present: normal inspection. Absent: tenderness, meningismus Respiratory exam: Present: wheezes, rhonchi, decreased breath sounds, prolonged expiratory Cardiovascular Exam: Present: regular rate, normal rhythm GI/Abdominal exam: Present: soft. Absent: distended, tenderness, guarding Extremities exam: Present: normal inspection, normal capillary refill. Absent: pedal edema Neurological exam: Present: other (Intubated and sedated) Skin exam: Present: warm, dry, intact EKG Findings - EKG Comments: EKG Findings:: EKG: Sinus rhythm with sinus arrhythmia, Q waves and T-wave inversion in the inferior leads, rate of 83, AK interval 118, QRS duration 94, QTC 385, no ST segment elevation. Medical Decision Making - Medical Decision Making 87 yo female transferred with hypoxic hypercapnic gustatory failure after being off supplement oxygen for an unknown amount of time. Patient's workup in the referring ER revealed normal head CT, no intracranial hemorrhage, CT abdomen was performed which did not show any acute intra-abdominal pathology. Patient' s initial blood gas showed a CO2 of 110 and a pH is 7.18. Chest x-ray showed concern for some developing CHF versus pneumonia, she was given antibiotics in the emergency department prior to transfer. Repeat chest x-ray upon arrival shows satisfactory placement of endotracheal tube and similar concern for developing pneumonia. Patient has elevated white blood cell count 17.8, hemoglobin 12.3, urinalysis was clear, sodium and potassium within normal limits. CO2 on BMP was 39 which likely relates to chronic CO2 retention. Troponin was negative. Case discussed with orthopedic physician and pulmonary looper fixer regarding ICU management. Repeat ABG pending. Critical Care Time Critical Care Time: Yes Total Critical Care Time: 35 Disposition Clinical Impression: Acute exacerbation of chronic obstructive airways disease, Respiratory failure with hypoxia and hypercapnia Disposition: ADMITTED IP TO THIS HOSP Condition: Serious Is patient prescribed a controlled substance at d/c from ED?: No Referrals: Benjamin Dietrich DO [Primary Care Provider] - 1-2 days Time of Disposition: 12:48 Decision to Admit Reason: Admit from EC Decision Date: 05/22/18 Decision Time: 12:48
--- NOTE | 2018-05-22 12:44 | XR ---
EXAMINATION TYPE: XR chest 1V portable DATE OF EXAM: 05/22/2018 COMPARISON: 11/08/2017 INDICATION: Pain, line placement TECHNIQUE: Single frontal view of the chest is obtained. FINDINGS: The heart size is normal. The pulmonary vasculature is normal. Mild diffuse increased lung markings are through the left upper lung field. Correlate for developing pneumonia or atelectasis. Milder infiltrate is present to the right lower lobe. Pneumonia at this lev el is not excluded. r endotracheal tube tip is 4.3 cm above the cornel. Nasogastric tube transverses the thorax the tip i n the proximal left upper quadrant of the abdomen. IMPRESSION: 1. Lines and catheters discussed above. 2. Correlate for developing left upper lobe pneumonia. Mild infiltrate at the right base may be prese nt as well.
[2018-05-22 13:13] LABS: ABG Base Excess 11.9 mmol/L; ABG Oxygen Saturation 97.8 % (94-97); ABG PO2 111 mmHg (83-108); ABG TCO2 43 mmol/L (19-24)
[2018-05-22 15:44] LABS: ABG Base Excess 13.2 mmol/L; ABG Oxygen Saturation 92.5 % (94-97); ABG PH 7.25 (7.35-7.45); ABG PO2 74 mmHg (83-108); ABG TCO2 43 mmol/L (19-24)
[2018-05-22 15:54] LABS: ABG PCO2 92 mmHg (35-45)
[2018-05-22 15:55] LABS: ABG HCO3 40 mmol/L (21-25)
[2018-05-22] MEDS ORDERED: MORPHINE SULFATE 2 MG/ML SYRINGE IV PRN (16:02)
[2018-05-22] MEDS ORDERED: ACETAMINOPHEN TAB 325 MG TAB PO PRN (16:02)
[2018-05-22] MEDS ORDERED: ARTIFICIAL TEARS-HYPROMELLOSE DROPS 15 ML BTL BOTH EYES PRN (16:02)
[2018-05-22] MEDS ORDERED: POLYETHYLENE GLYCOL 3350 17 GM POWD.PACK PO PRN (16:08)
[2018-05-22] MEDS ORDERED: ALBUTEROL NEBULIZED 1.25 MG/3 ML INHALATION PRN (16:10)
--- NOTE | 2018-05-22 16:49 | P.HPIM ---
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 On arrival [facility] she was unresponsive and was intubated. Initial analysis showed the patient to be tachycardic. She was found to have a white blood cell count of 17.8 and hemoglobin 12.3. She was also found to have slightly elevated BUN/creatinine 21. Her urinalysis was negative. Troponin was negative. BNP was 464. Lactic acid was 1.6. An influenza A was negative. She underwent a CT head which showed no acute process, CT abdomen and pelvis that showed no acute intra- abdominal process but possible left lower lobe pneumonia. Chest x-ray was negative. She was given IV fluid and doxycycline. Arrangements were made for transfer here. On arrival here an ABG was performed which showed a pH of 7.2 and a pCO2 of 110. Chest x-ray showed ET tube in good position with possible left sided and right lower lobe infiltrate. Patient seen and examined at bedside the ER. She is currently sedated on the ventilator. Daughter is present at bedside. She is the POA. She states that the patient does not have an advanced directive. She states that this morning, At approximately 5 AM and was complaining of some abdominal discomfort, per the daughter this is not unusual for the patient. The patient's woke up at 7:30 and found her to be shaky and had a decreased level of alertness. His daughter came over and immediately called EMS. By the time she arrived [facility] she was unresponsive and subsequently intubated. The family has noticed that she has had a decline over the last 2 weeks. She's been more tired and taking more naps than normal but having poor sleep at night. They also noted that she had one day of chills that she has not complained of this in almost 2 weeks. She has been having some increasing shortness of breath with movement. She isn't fatiguing more frequently and having to a seated and rest when she is leaving the house. They report that she saw her lidder on Friday in [place] and he did decrease to of her medications. She has been intubated in the past the last time was 2 years ago. Her last hospitalization was in October 2017 for a fall and compression fractures. Review of Systems ROS unobtainable: due to mental status Past Medical History Past Medical History: Coronary Artery Disease (CAD), COPD, GERD/Reflux, Hyperlipidemia, Hypertension, Myocardial Infarction ([place]), Osteoarthritis (OA) Additional Past Medical History / Comment(s): INCONT OF URINE WEARS A PAD, BRONCHITIS, UTI, HOME O2 2 LITERS AT HS, Chronic diarrhea Last Myocardial Infarction Date:: 1993 History of Any Multi-Drug Resistant Organisms: None Reported Past Surgical History: Bladder Surgery, Cholecystectomy, Coronary Bypass/CABG, Heart Catheterization Additional Past Surgical History / Comment(s): CATARACTS Past Anesthesia/Blood Transfusion Reactions: No Reported Reaction Past Psychological History: No Psychological Hx Reported Smoking Status: Former smoker Past Alcohol Use History: None Reported Additional Past Alcohol Use History / Comment(s): STARTED SMOKNG AT AGE 14(1944) , QUIT AGE 63 SMOKED 1 PPD. Past Drug Use History: None Reported Additional History: LIVES AT HOME WITH HER SPOUSE, USES WALKER WHEN UP HAS HOME 02 2 LITERS N/C ATC - Past Family History Father Family Medical History: COPD Additional Family Medical History / Comment(s): EMPHYSEMA Mother Family Medical History: Myocardial Infarction ([place]) Medications and Allergies Home Medications Medication Instructions Recorded Confirmed Type Metoprolol Tartrate [Lopressor] 25 mg PO BID 04/18/16 05/22/18 History Omeprazole 20 mg PO BID 04/18/16 05/22/18 History Simvastatin [Zocor] 40 mg PO HS 04/18/16 05/22/18 History Isosorbide Mononitrate ER [Imdur] 60 mg PO DAILY 07/24/16 05/22/18 History amLODIPine [Norvasc] 10 mg PO DAILY 07/24/16 05/22/18 History Aspirin [Adult Low Dose Aspirin EC] 81 mg PO DAILY #100 tablet. 11/10/1705/22 Rx Ipratropium-Albuterol Nebulize 3 ml INHALATION RT-QID #40 11/10/17 05/22/18 Rx [Duoneb 0.5 mg-3 mg/3 ml Soln] ampul.neb Calcium Carbonate [Calcium] 600 mg PO DAILY 05/22/18 05/22/18 History Cholecalciferol [Vitamin D3] 400 unit PO DAILY 05/22/18 05/22/18 History Cyanocobalamin (Vitamin B-12) 2,500 mcg PO DAILY 05/22/18 05/22/18 History [Vitamin B12] Docusate [Colace] 100 mg PO BID 05/22/18 05/22/18 History Fluticasone Nasal [place] [Flonase 1 spray EA NOSTRIL DAILY 05/22/18 05/22/18 History Nasal [place]] Fluticasone/Salmeterol [Advair 1 puff PO RT-BID 05/22/18 05/22/18 History 500-50 Diskus] Multivits,Th W-Ca,Fe,Oth Min 1 tab PO DAILY 05/22/18 05/22/18 History [Therapeutic M] [place]-3 Fatty Acids/Fish Oil 1 cap PO DAILY 05/22/18 05/22/18 History [[place]-3 Fish Oil 1,200 mg Sfgl] Polyethylene Glycol 3350 [Miralax] 17 gm PO BID PRN 05/22/18 05/22/18 History Vitamin E (Dl,Tocopheryl Acet) 400 unit PO DAILY 05/22/18 05/22/18 History [Vitamin E] Allergies Allergy/AdvReac Type Severity Reaction Status Date / Time amoxicillin [From Augmentin] Allergy Unknown Unknown Verified 05/22/18 13:16 clavulanic acid Allergy Unknown Unknown Verified 05/22/18 13:16 [From Augmentin] Cephalosporins Allergy Unknown Verified 05/22/18 13:16 sulfamethoxazole Allergy Unknown Verified 05/22/18 13:16 [From Bactrim] tetanus and diphtheria Allergy Itching Verified 05/22/18 13:16 toxoids trimethoprim [From Bactrim] Allergy Unknown Verified 05/22/18 13:16 Physical Exam Osteopathic Statement: *. No significant issues noted on an osteopathic structural exam other than those noted in the History and Physical/Consult. Vitals: Vital Signs Pulse Resp BP Pulse Ox 05/22/18 14:30 75 16 94/58 90 L 05/22/18 14:15 75 16 93/55 91 L 05/22/18 14:00 93 16 101/60 92 L 05/22/18 13:45 87 16 103/56 93 L 05/22/18 13:30 87 16 105/59 98 05/22/18 13:15 82 10 L 106/59 96 05/22/18 13:00 88 10 L 106/68 96 05/22/18 12:45 90 10 L 108/74 98 05/22/18 12:30 77 10 L 117/65 100 05/22/18 12:17 100 Intake and Output 05/22/18 05/22/18 05/22/18 06:59 14:59 22:59 Other: Voiding Method Indwelling Catheter Weight 57 kg General: Ill-appearing, maximal distress, sedated on vent, cachectic appearing, appears at stated age Derm: no unusual rashes/lesions no unusual ecchymoses, warm, dry Head: atraumatic, normocephalic, symmetric Eyes: EOMI, no lid lag, anicteric sclera, pupils equal round reactive to light ENT: Nose and ears atraumatic, ET tube in place Neck: No thyromegaly, no cervical lymphadenopathy, trachea midline, supple Mouth: no lip lesion, mucous membranes dry Cardiovascular: S1S2 reg, no murmur, positive posterior tibial pulse bilateral, trace edema left lower extremity, capillary refill less than 2 seconds Lungs: Or stress sounds bilaterally, sedated on ventilator, no rhonchi, no rales Abdominal: soft, nontender to palpation, no guarding, no appreciable organomegaly, normal bowel sounds Ext: no gross muscle atrophy, muscle strength 5 out of 5 in all 4 extremities grossly, no contractures, Neuro: Biceps reflexes 2 out of 4, withdrawal to pain in bilateral upper extremities Psych: Sedated on vent Results CBC & Chem 7: 05/22/18 16:47 05/22/18 16:47 Labs: Abnormal Lab Results - Last 24 Hours (Table) 05/22/18 05/22/18 Range/Units 13:07 15:40 ABG pH 7.20 L 7.25 L (7.35-7.45) ABG pCO2 102 H* 92 H* (35-45) mmHg ABG pO2 111 H 74 L (83-108) mmHg ABG HCO3 40 H* 40 H* (21-25) mmol/L ABG Total CO2 43 H 43 H (19-24) mmol/L ABG O2 Saturation 97.8 H 92.5 L (94-97) % Comments: EKG shows normal sinus rhythm at a rate of 83. Chest x-ray: report reviewed, image reviewed (Imaging reviewed by myself appears to be left upper and lower lobe infiltrates and possible right-sided infiltrate) Thrombosis Risk Factor Assmnt - DVT/VTE Prophylaxis DVT/VTE Prophylaxis: Pharmacologic Prophylaxis ordered Assessment and Plan Assessment: CAD acquired pneumonia, possible gram-negative -Levaquin secondary to multiple ALLERGIES as able. -Legionella urinary antigen, sputum culture -IV fluids -Repeat check stat CBC, CMP, lactic acid, and blood cultures -Check influenza nasal swab Acute exacerbation of COPD stage 3/4 -Bronchodilators -Steroids -Pulmonary hygiene -Pulmonary/critical care recommendations Acute on chronic hypoxic hypercapnic respiratory failure -Treatment as above -Vent management -Check stat ABG rechecked with pH of 7.25, pCO2 92.3, PaO2 74.3 vent rate increased to 20 from 16 as patient was not breathing above Hypertension, currently borderline hypotensive -Hold Norvasc, Lopressor, and Imdur Dyslipidemia -Hold statin at this time ASCAD - ASA, statin on hold GERD - IV pepcid The patient is admitted with an anticipated greater than 2 midnight stay for evaluation of Pneumonia and COPD exacerbation. Surrogate decision-maker: DAughter Rebeca CODE STATUS:Full DVT prophylaxis: Lovenox Discussed with: ED physician, Dr. Washington, Family, nursing Anticipated discharge date: 5-[address]: undetermined A total of 45 minutes of critical care time was spent on this complex patient.
[2018-05-22 17:21] LABS: HCT 35.3 % (34.0-46.0); Hypochromasia Slight; MCH 30.7 pg (25.0-35.0); MCHC 31.3 g/dL (31.0-37.0); Platelet Count 302 k/uL (150-450); WBC 13.3 k/uL (3.8-10.6)
[2018-05-22 17:29] LABS: INR 1.1 (<1.2); Prothrombin Time 10.6 sec (9.0-12.0)
[2018-05-22] MEDS: IPRATROPIUM-ALBUTEROL 3 ML NEB INHALATION SCH ×2 (17:30→19:59)
[2018-05-22] MEDS ORDERED: ALBUTEROL NEBULIZED 2.5 MG/3 ML INHALATION PRN (17:50)
[2018-05-22 17:53] LABS: ALT 29 U/L (9-52); AST 36 U/L (14-36); Alkaline Phosphatase 93 U/L (38-126); Anion Gap 6 mmol/L; Blood Urea Nitrogen 27 mg/dL (7-17); Calcium 8.4 mg/dL (8.4-10.2); Carbon Dioxide 35 mmol/L (22-30); Chloride 98 mmol/L (98-107); Glucose 133 mg/dL (74-99); Magnesium 2.2 mg/dL (1.6-2.3); Phosphorus 4.8 mg/dL (2.5-4.5); Potassium 5.1 mmol/L (3.5-5.1); Sodium 139 mmol/L (137-145); Total Bilirubin 0.4 mg/dL (0.2-1.3)
[2018-05-22] MEDS ORDERED: MIDAZOLAM 2 MG/2 ML VIAL IV ONE (17:55)
[2018-05-22 18:00] LABS: Appearance,Urine Clear (Clear); Bacteria,Urine Rare /hpf; Bilirubin,Urine Negative (Negative); Blood,Urine Negative (Negative); Color,Urine Yellow; Glucose,Urine (UA) Negative (Negative); Hyaline Casts,Urine 8 /lpf (0-2); Ketones,Urine Trace (Negative); Leukocyte Esterase,Urine Negative (Negative); Mucus,Urine Occasional /hpf; Nitrite,Urine Negative (Negative); Protein,Urine 1+ (Negative); RBC,Urine 4 /hpf (0-5); Specific Gravity,Urine 1.019 (1.001-1.035); WBC,Urine 1 /hpf (0-5)
[2018-05-22] MEDS: SODIUM CHLORIDE 0.9% 1,000 ML IV SCH (18:02)
--- NOTE | 2018-05-22 18:07 | P.CNPUL ---
History of Present Illness Consult date: 05/22/18 Reason for consult: COPD History of present illness: This is an 87-year-old female patient, with known history of advanced COPDEV1 of 39% of predicted, diffusion capacity of 32% of predicted, whereas been followed up in our office and the patient was brought into the hospital today because of worsening shortness of breath. Apparently the patient was in a good state of health and around 2 days ago she started having cold chills and she was progressively getting more short of breath. This morning, the patient woke up at around 5 AM and she was complaining of shakingAnd worsening dyspnea and she was also noted to have diminished level of consciousness. Based on that, the patient was taken to [facility] and upon arrival she was unresponsive. She was immediately intubated. She was found to have a white cell count of 17.8. Hemoglobin was 12.3. Troponins were negative. BNP level was 464. Lactic acid level was 1.6. Influenza screen was negative. CAT scan of the chest and abdomen showed no acute abnormalities. There was an indication of a possible bibasilar pulmonary infiltrates/pneumonia more so on the left lung base. Based on this, the patient was placed on mechanical ventilator, and she was transferred to [facility] for further evaluation I saw this patient in the ED. She was sedated with Versed drip 1 mg an hour. She was on a mechanical ventilator at the rate of 20, tidal volume of 300, FiO2 of 50% and a PEEP of 5. I increased the rate up to 26. I also increased the flow up to 60. This gave the patient an I:E ratio of 1:4. The patient's blood gases that were done prior to this and change showed a pH of 7.25 with a pCO2 of 92 and pO2 of 74. This was done and FiO2 of 40%. Currently she is on bronchodilators for she is on systemic steroids. He is on IV Solu-Medrol 60 mg every 6 hours. She is also on Levaquin as an empiric antibiotic coverage. No reported aspiration. No reported angina. No reported chest pain. She is known to have previous history of coronary artery disease and she is done coronary artery bypass surgery back in 1993. She has bronchospastic and wheezy. Peak air pressure on the mechanical ventilator 36. Static pressures around 17. ET tube is in a good location at the level of the aortic arch. 3 cm above the cornel. No significant orotracheal secretions. 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, hypertension, hyperlipidemia, previous history of UTI, incontinence to urine, chronic diarrhea, history of aortic stenosis Last Myocardial Infarction Date:: 1993 History of Any Multi-Drug Resistant Organisms: None Reported Past Surgical History: Bladder Surgery, Cholecystectomy, Coronary Bypass/CABG, Heart Catheterization Additional Past Surgical History / Comment(s): CATARACTS Past Anesthesia/Blood Transfusion Reactions: No Reported Reaction Past Psychological History: No Psychological Hx Reported Smoking Status: Former smoker Past Alcohol Use History: None Reported Additional Past Alcohol Use History / Comment(s): STARTED SMOKNG AT AGE 14(1944) , QUIT AGE 63 SMOKED 1 PPD. Past Drug Use History: None Reported - Past Family History Father Family Medical History: COPD Additional Family Medical History / Comment(s): EMPHYSEMA Mother Family Medical History: Myocardial Infarction ([place]) Medications and Allergies Home Medications Medication Instructions Recorded Confirmed Type Metoprolol Tartrate [Lopressor] 25 mg PO BID 04/18/16 05/22/18 History Omeprazole 20 mg PO BID 04/18/16 05/22/18 History Simvastatin [Zocor] 40 mg PO HS 04/18/16 05/22/18 History Isosorbide Mononitrate ER [Imdur] 60 mg PO DAILY 07/24/16 05/22/18 History amLODIPine [Norvasc] 10 mg PO DAILY 07/24/16 05/22/18 History Aspirin [Adult Low Dose Aspirin EC] 81 mg PO DAILY #100 tablet. 11/10/1705/22 Rx Ipratropium-Albuterol Nebulize 3 ml INHALATION RT-QID #40 11/10/17 05/22/18 Rx [Duoneb 0.5 mg-3 mg/3 ml Soln] ampul.neb Calcium Carbonate [Calcium] 600 mg PO DAILY 05/22/18 05/22/18 History Cholecalciferol [Vitamin D3] 400 unit PO DAILY 05/22/18 05/22/18 History Cyanocobalamin (Vitamin B-12) 2,500 mcg PO DAILY 05/22/18 05/22/18 History [Vitamin B12] Docusate [Colace] 100 mg PO BID 05/22/18 05/22/18 History Fluticasone Nasal [place] [Flonase 1 spray EA NOSTRIL DAILY 05/22/18 05/22/18 History Nasal [place]] Fluticasone/Salmeterol [Advair 1 puff PO RT-BID 05/22/18 05/22/18 History 500-50 Diskus] Multivits,Th W-Ca,Fe,Oth Min 1 tab PO DAILY 05/22/18 05/22/18 History [Therapeutic M] [place]-3 Fatty Acids/Fish Oil 1 cap PO DAILY 05/22/18 05/22/18 History [[place]-3 Fish Oil 1,200 mg Sfgl] Polyethylene Glycol 3350 [Miralax] 17 gm PO BID PRN 05/22/18 05/22/18 History Vitamin E (Dl,Tocopheryl Acet) 400 unit PO DAILY 05/22/18 05/22/18 History [Vitamin E] Allergies Allergy/AdvReac Type Severity Reaction Status Date / Time amoxicillin [From Augmentin] Allergy Unknown Unknown Verified 05/22/18 13:16 clavulanic acid Allergy Unknown Unknown Verified 05/22/18 13:16 [From Augmentin] Cephalosporins Allergy Unknown Verified 05/22/18 13:16 sulfamethoxazole Allergy Unknown Verified 05/22/18 13:16 [From Bactrim] tetanus and diphtheria Allergy Itching Verified 05/22/18 13:16 toxoids trimethoprim [From Bactrim] Allergy Unknown Verified 05/22/18 13:16 Physical Exam Vitals: Vital Signs Pulse Resp BP Pulse Ox 05/22/18 17:30 67 20 96/58 96 05/22/18 17:15 67 20 101/59 97 05/22/18 17:00 70 20 99/59 97 05/22/18 16:45 69 23 92/58 97 05/22/18 16:30 68 32 H 94/57 98 05/22/18 16:15 70 25 H 102/56 98 05/22/18 16:00 72 20 102/59 97 05/22/18 15:45 73 16 111/59 90 L 05/22/18 15:30 75 16 99/52 97 05/22/18 15:15 73 16 98/55 91 L 05/22/18 15:00 73 16 100/59 91 L 05/22/18 14:45 72 16 98/55 91 L 05/22/18 14:30 75 16 94/58 90 L 05/22/18 14:15 75 16 93/55 91 L 05/22/18 14:00 93 16 101/60 92 L 05/22/18 13:45 87 16 103/56 93 L 05/22/18 13:30 87 16 105/59 98 05/22/18 13:15 82 10 L 106/59 96 05/22/18 13:00 88 10 L 106/68 96 05/22/18 12:45 90 10 L 108/74 98 05/22/18 12:30 77 10 L 117/65 100 05/22/18 12:17 100 Intake and Output 05/22/18 05/22/18 05/22/18 06:59 14:59 22:59 Other: Voiding Method Indwelling Catheter Weight 57 kg Intubated, comfortable likely distress. She is well sedated. Thin and frail with a BMI of 24.5 Head exam was generally normal. There was no scleral icterus or corneal arcus. Mucous membranes were moist. Neck was supple and without jugular venous distension, thyromegaly, or carotid bruits. Carotids were easily palpable bilaterally. There was no adenopathy. The patient has an orogastric and orotracheal tube in place. Lungs sounds are diminished and there is scattered expiratory wheezes without the lung his bilaterally. The patient has a barrel chest. Sternum stable clean and intact. Cardiac exam revealed the PMI to be normally situated and sized. The rhythm was regular and no extrasystoles were noted during several minutes of auscultation. The first and second heart sounds were normal and physiologic splitting of the second heart sound was noted. There were no murmurs, rubs, clicks, or gallops. Abdominal exam revealed normal bowel sounds. The abdomen was soft, non-tender, and without masses, organomegaly, or appreciable enlargement of the abdominal aorta. Examination of the extremities revealed easily palpable radial, femoral and pedal pulses. There was no cyanosis, clubbing or edema. Examination of the skin revealed no evidence of significant rashes, suspicious appearing nevi or other concerning lesions. Neurologically the patient is sedated. Results - Laboratory Findings CBC and BMP: 05/22/18 16:47 05/22/18 16:47 ABG ABG pH 7.25 (7.35-7.45) L 05/22/18 15:40 ABG pCO2 92 mmHg (35-45) H* 05/22/18 15:40 ABG pO2 74 mmHg (83-108) L 05/22/18 15:40 ABG O2 Saturation 92.5 % (94-97) L 05/22/18 15:40 PT/INR, D-dimer PT 10.6 sec (9.0-12.0) 05/22/18 16:47 INR 1.1 (<1.2) 05/22/18 16:47 Abnormal lab findings: Abnormal Labs 05/22/18 05/22/18 05/22/18 13:07 15:40 16:47 WBC 13.3 H RBC 3.60 L Hgb 11.0 L ABG pH 7.20 L 7.25 L ABG pCO2 102 H* 92 H* ABG pO2 111 H 74 L ABG HCO3 40 H* 40 H* ABG Total CO2 43 H 43 H ABG O2 Saturation 97.8 H 92.5 L Carbon Dioxide BUN Glucose Phosphorus Total Protein Albumin 05/22/18 16:47 WBC RBC Hgb ABG pH ABG pCO2 ABG pO2 ABG HCO3 ABG Total CO2 ABG O2 Saturation Carbon Dioxide 35 H BUN 27 H Glucose 133 H Phosphorus 4.8 H Total Protein 6.0 L Albumin 3.0 L - Diagnostic Findings Chest x-ray: image reviewed Assessment and Plan Plan: Assessment 1 acute hypoxic/hypercapnic respiratory failure secondary to COPD exacerbation and bilateral lower lobe pneumonia 2 advanced severe COPD with a baseline FEV1 of 39% of predicted 3 acute on top of chronic hypercapnic respiratory failure with acute on chronic respiratory acidosis secondary to above. 4 acute ventilator-dependent history failure secondary to above 5 coronary artery disease appears bypass surgery 6 aortic stenosis 7 hypertension 8 leukocytosis secondary to above Plan Take this patient to the intensive care unit. Switch her to a Diprivan drip for sedation. Continue vent support. Repeat the blood gases and I see in the necessary vent changes will be done. Continue DuoNeb nebulized treatments around the clock. IV Solu Medrol 60 mg every 6 hours. Empiric antibiotic coverage with IV Levaquin. Sputum Gram stain and culture. DVT and GI prophylaxis. Daily chest x-rays. CAT scan of the chest was noted. Echocardiogram in a.m. Maintenance IV fluids normal saline at the rate of 75 mL an hour. Condition is critical. We'll continue to follow make further recommendations based on her progress. She'll discuss with the daughter the bedside.
[2018-05-22] MEDS: LEVOFLOXACIN 750MG-D5W PMX 750 MG in DEXTROSE/WATER 1 150ML.BAG IVPB SCH (18:56)
[2018-05-22] MEDS: methylPREDNISolone SOD SUCCI 125 MG/2 ML VIAL IV SCH (18:58)
[2018-05-22] MEDS: PROPOFOL 1,000 MG in EMPTY BAG 1 BAG IV SCH (19:00)
[2018-05-22 19:06] LABS: Glucose,Whole Blood 138 mg/dL (75-99)
[2018-05-22] MEDS ORDERED: IPRATROPIUM-ALBUTEROL 3 ML NEB INHALATION SCH (20:00)
[2018-05-22] MEDS ORDERED: SYMBICORT 160-4.5 MCG INHALER INHALATION SCH (20:00)
[2018-05-22] MEDS: FAMOTIDINE 20 MG/2 ML VIAL IV SCH (20:29)
[2018-05-22] MEDS: CHLORHEXIDINE GLUCONATE 15 ML CUP MUCOUS MEM SCH (20:29)
[2018-05-22] MEDS: DOCUSATE 100 MG CAP PO SCH (20:30)
[2018-05-23] MEDS: methylPREDNISolone SOD SUCCI 125 MG/2 ML VIAL IV SCH ×5 (00:17→23:17)
[2018-05-23] MEDS: PROPOFOL 1,000 MG in EMPTY BAG 1 BAG IV SCH ×3 (01:18→17:47)
[2018-05-23 02:38] LABS: ABG HCO3 37 mmol/L (21-25); ABG PCO2 63 mmHg (35-45); ABG PH 7.38 (7.35-7.45); ABG PO2 118 mmHg (83-108)
[2018-05-23 02:39] LABS: ABG Base Excess 12.3 mmol/L
[2018-05-23] MEDS: SODIUM CHLORIDE 0.9% 1,000 ML IV SCH ×3 (02:55→23:17)
[2018-05-23 04:39] LABS: ABG Base Excess 8.6 mmol/L; ABG HCO3 35 mmol/L (21-25); ABG Oxygen Saturation 99.2 % (94-97); ABG PCO2 70 mmHg (35-45); ABG PH 7.31 (7.35-7.45); ABG PO2 121 mmHg (83-108); ABG TCO2 37 mmol/L (19-24)
[2018-05-23 05:41] LABS: Basophils % (A) 0 %; Eosinophils % (A) 0 %; HCT 37.2 % (34.0-46.0); HGB 11.8 gm/dL (11.4-16.0); Hypochromasia Slight; Lymphocytes # (A) 0.6 k/uL (1.0-4.8); Lymphocytes % (A) 6 %; MCH 30.9 pg (25.0-35.0); MCHC 31.8 g/dL (31.0-37.0); MCV 97.1 fL (80.0-100.0); Mean Platelet Volume 7.2; Monocytes # (A) 0.4 k/uL (0-1.0); Monocytes % (A) 4 %; Neutrophils # (A) 8.3 k/uL (1.3-7.7); Neutrophils % (A) 88 %; Platelet Count 233 k/uL (150-450); RBC 3.83 m/uL (3.80-5.40); RDW 13.1 % (11.5-15.5); WBC 9.4 k/uL (3.8-10.6)
[2018-05-23 05:52] LABS: Anion Gap 6 mmol/L; Blood Urea Nitrogen 29 mg/dL (7-17); Calcium 7.9 mg/dL (8.4-10.2); Carbon Dioxide 29 mmol/L (22-30); Chloride 103 mmol/L (98-107); Glucose 94 mg/dL (74-99); Phosphorus 4.4 mg/dL (2.5-4.5); Sodium 138 mmol/L (137-145)
[2018-05-23 05:58] LABS: Potassium 5.2 mmol/L (3.5-5.1)
--- NOTE | 2018-05-23 06:57 | XR ---
EXAMINATION TYPE: XR chest 1V portable DATE OF EXAM: 05/23/2018 HISTORY: Tube placement. REFERENCE: Previous study dated 05/22/2018. FINDINGS: There has been a midline sternotomy. The patient is ET tube and NG tube remain in place, un changed in appearance. Lung volumes are prominent. There is left basilar airspace disease. I suspect a small left effusion. Overall aeration of the left lung is improved. IMPRESSION: 1. COPD. 2. MILD LEFT BASILAR AIRSPACE DISEASE. 3. OVERALL IMPROVED AERATION OF THE LEFT LUNG.
[2018-05-23] MEDS: INSULIN ASPART 100 UNIT/ML 1 ML 10 ML VIAL SQ SCH ×2 (07:17→17:42)
[2018-05-23 07:18] LABS: Glucose,Whole Blood 95 mg/dL (75-99)
[2018-05-23] MEDS: IPRATROPIUM-ALBUTEROL 3 ML NEB INHALATION SCH ×4 (07:26→19:42)
[2018-05-23] MEDS: CHOLECALCIFEROL 400 UNIT TAB PO SCH (09:45)
[2018-05-23] MEDS: CYANOCOBALAMIN 500 MCG TAB PO SCH (09:49)
[2018-05-23] MEDS: DOCUSATE 100 MG CAP PO SCH ×2 (09:49→20:19)
[2018-05-23] MEDS: ENOXAPARIN 40 MG/0.4 ML SYRINGE SQ SCH (09:50)
[2018-05-23] MEDS: CALCIUM CARBONATE 500 MG CHEWABLE PO SCH (09:50)
[2018-05-23] MEDS: FAMOTIDINE 20 MG/2 ML VIAL IV SCH ×2 (09:50→20:19)
[2018-05-23] MEDS: CHLORHEXIDINE GLUCONATE 15 ML CUP MUCOUS MEM SCH ×2 (09:50→20:19)
--- NOTE | 2018-05-23 09:54 | P.PN ---
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 On arrival [place] and she was unresponsive and was intubated. Initial analysis showed the patient to be tachycardic. She was found to have a white blood cell count of 17.8 and hemoglobin 12.3. She was also found to have slightly elevated BUN/creatinine 21. Her urinalysis was negative. Troponin was negative. BNP was 464. Lactic acid was 1.6. An influenza A was negative. She underwent a CT head which showed no acute process, CT abdomen and pelvis that showed no acute intra- abdominal process but possible left lower lobe pneumonia. Chest x-ray was negative. She was given IV fluid and doxycycline. Arrangements were made for transfer here. On arrival here an ABG was performed which showed a pH of 7.2 and a pCO2 of 110. Chest x-ray showed ET tube in good position with possible left sided and right lower lobe infiltrate. Repeat ABG showed continue hypercapnia on vent adjustments were made. Chest x-ray showed possible infiltrate and antibiotics were broadened to Levaquin. She was started on steroids, bronchodilators, and antibiotics. Sputum culture was obtained. She was subsequently admitted to the ICU. Patient seen and examined at bedside. Sedated in ICU. Daughter present. No acute events overnight. Objective - Vital Signs Vital signs: Vital Signs Temp 97.6 F 05/23/18 04:00 Pulse 59 L 05/23/18 07:40 Resp 24 05/23/18 07:00 BP 97/53 05/23/18 07:00 Pulse Ox 100 05/23/18 07:00 Intake & Output 05/22/18 05/23/18 05/23/18 18:59 06:59 18:59 Intake Total 1259.748 100 Output Total 475 40 Balance 784.748 60 Weight 57 kg 47.5 kg Intake: Intake, IV Titration 1259.748 100 Amount Midazolam HCl 100 mg In 5.883 Sodium Chloride 0.9% 80 ml @ 1 MG/HR 1 mls/hr IV .Q24H [facility] Rx#:[id number] Propofol 1,000 mg In 53.865 Empty Bag 1 bag @ Titrate IV .Q0M [facility] Rx#: [id number] Sodium Chloride 0.9% 1, 1200 100 000 ml @ 100 mls/hr IV . Q10H [facility] Rx#:[id number] Output: Urine 475 40 Other: Voiding Method Indwelling Catheter Indwelling Catheter - Exam General: moderate distress, ill-appearing, appears at stated age Derm: warm, dry Head: atraumatic, normocephalic, symmetric Eyes: EOMI, no lid lag, anicteric sclera Mouth: no lip lesion, mucus membranes moist Neck: Supple, trachea midline Cardiovascular: S1S2 reg, no murmur, positive posterior tibial pulse bilateral, Lungs: faint expiratory wheeze bilateral, no rhonchi, no rales , no accessory muscle use, and Abdominal: soft, nontender to palpation, no guarding, no appreciable organomegaly Ext: no gross muscle atrophy, trace edema left lower extremity, no contractures Neuro: Withdrawal to pain in bilateral upper extremities, positive gag Psych: sedated on vent - Labs CBC & Chem 7: 05/23/18 04:56 05/23/18 04:56 Labs: Abnormal Lab Results - Last 24 Hours (Table) 05/22/18 05/22/18 05/22/18 Range/Units 13:07 15:40 16:47 WBC 13.3 H (3.8-10.6) k/uL RBC 3.60 L (3.80-5.40) m/uL Hgb 11.0 L (11.4-16.0) gm/dL Neutrophils # (1.3-7.7) k/uL Lymphocytes # (1.0-4.8) k/uL ABG pH 7.20 L 7.25 L (7.35-7.45) ABG pCO2 102 H* 92 H* (35-45) mmHg ABG pO2 111 H 74 L (83-108) mmHg ABG HCO3 40 H* 40 H* (21-25) mmol/L ABG Total CO2 43 H 43 H (19-24) mmol/L ABG O2 Saturation 97.8 H 92.5 L (94-97) % Potassium (3.5-5.1) mmol/L Carbon Dioxide (22-30) mmol/L BUN (7-17) mg/dL Glucose (74-99) mg/dL POC Glucose (mg/dL) (75-99) mg/dL Calcium (8.4-10.2) mg/dL Phosphorus (2.5-4.5) mg/dL Total Protein (6.3-8.2) g/dL Albumin (3.5-5.0) g/dL Urine Protein (Negative) Urine Ketones (Negative) Urine Bacteria (None) /hpf Hyaline Casts (0-2) /lpf Urine Mucus (None) /hpf 05/22/18 05/22/18 05/22/18 Range/Units 16:47 17:36 18:50 WBC (3.8-10.6) k/uL RBC (3.80-5.40) m/uL Hgb (11.4-16.0) gm/dL Neutrophils # (1.3-7.7) k/uL Lymphocytes # (1.0-4.8) k/uL ABG pH (7.35-7.45) ABG pCO2 (35-45) mmHg ABG pO2 (83-108) mmHg ABG HCO3 (21-25) mmol/L ABG Total CO2 (19-24) mmol/L ABG O2 Saturation (94-97) % Potassium (3.5-5.1) mmol/L Carbon Dioxide 35 H (22-30) mmol/L BUN 27 H (7-17) mg/dL Glucose 133 H (74-99) mg/dL POC Glucose (mg/dL) 138 H (75-99) mg/dL Calcium (8.4-10.2) mg/dL Phosphorus 4.8 H (2.5-4.5) mg/dL Total Protein 6.0 L (6.3-8.2) g/dL Albumin 3.0 L (3.5-5.0) g/dL Urine Protein 1+ H (Negative) Urine Ketones Trace H (Negative) Urine Bacteria Rare H (None) /hpf Hyaline Casts 8 H (0-2) /lpf Urine Mucus Occasional H (None) /hpf 05/22/18 05/23/18 05/23/18 Range/Units 20:59 04:37 04:56 WBC (3.8-10.6) k/uL RBC (3.80-5.40) m/uL Hgb (11.4-16.0) gm/dL Neutrophils # 8.3 H (1.3-7.7) k/uL Lymphocytes # 0.6 L (1.0-4.8) k/uL ABG pH 7.31 L (7.35-7.45) ABG pCO2 63 H 70 H (35-45) mmHg ABG pO2 118 H 121 H (83-108) mmHg ABG HCO3 37 H 35 H (21-25) mmol/L ABG Total CO2 37 H (19-24) mmol/L ABG O2 Saturation 99.0 H 99.2 H (94-97) % Potassium (3.5-5.1) mmol/L Carbon Dioxide (22-30) mmol/L BUN (7-17) mg/dL Glucose (74-99) mg/dL POC Glucose (mg/dL) (75-99) mg/dL Calcium (8.4-10.2) mg/dL Phosphorus (2.5-4.5) mg/dL Total Protein (6.3-8.2) g/dL Albumin (3.5-5.0) g/dL Urine Protein (Negative) Urine Ketones (Negative) Urine Bacteria (None) /hpf Hyaline Casts (0-2) /lpf Urine Mucus (None) /hpf 05/23/18 Range/Units 04:56 WBC (3.8-10.6) k/uL RBC (3.80-5.40) m/uL Hgb (11.4-16.0) gm/dL Neutrophils # (1.3-7.7) k/uL Lymphocytes # (1.0-4.8) k/uL ABG pH (7.35-7.45) ABG pCO2 (35-45) mmHg ABG pO2 (83-108) mmHg ABG HCO3 (21-25) mmol/L ABG Total CO2 (19-24) mmol/L ABG O2 Saturation (94-97) % Potassium 5.2 H (3.5-5.1) mmol/L Carbon Dioxide (22-30) mmol/L BUN 29 H (7-17) mg/dL Glucose (74-99) mg/dL POC Glucose (mg/dL) (75-99) mg/dL Calcium 7.9 L (8.4-10.2) mg/dL Phosphorus (2.5-4.5) mg/dL Total Protein (6.3-8.2) g/dL Albumin (3.5-5.0) g/dL Urine Protein (Negative) Urine Ketones (Negative) Urine Bacteria (None) /hpf Hyaline Casts (0-2) /lpf Urine Mucus (None) /hpf Microbiology - Last 24 Hours (Table) 05/22/18 15:34 Gram Stain - Preliminary Sputum Sputum Culture - Preliminary Assessment and Plan Assessment: CAD acquired pneumonia, possible gram-negative -Levaquin D # 2 -Legionella urinary antigen, sputum culture -IV fluids -follow CXR Acute exacerbation of COPD stage 3/4 -Bronchodilators -Steroids -Pulmonary hygiene -Pulmonary/critical care recommendationsappreciated Acute on chronic hypoxic hypercapnic respiratory failure -Treatment as above -Vent management per pulmonary Hypotensive, with hx of HTN -Hold Norvasc, Lopressor, and Imdur - follow BP -on low dose levo whixh was added after use of propofol and not reflective of shock Dyslipidemia -Statom ASCAD - ASA, statin GERD - IV pepcid DVT prophylaxis: Lovenox Discussed with: ED physician, Dr. Washington, Family, nursing Anticipated discharge date: 5-[address]: undetermined A total of 35 minutes of time was spent on this complex patient.
[2018-05-23] MEDS: FLUTICASONE 50MCG/SPRAY NASAL 16GM EA NOSTRIL SCH (10:06)
[2018-05-23 12:07] LABS: Glucose,Whole Blood 97 mg/dL (75-99)
[2018-05-23] MEDS: MULTIVITAMINS, THERA 1 EACH TAB PO SCH (12:08)
--- NOTE | 2018-05-23 14:32 | P.PN ---
Subjective Progress Note Date: 05/23/18 This is an 87-year-old female patient, with known history of advanced COPDEV1 of 39% of predicted, diffusion capacity of 32% of predicted, whereas been followed up in our office and the patient was brought into the hospital today because of worsening shortness of breath. Apparently the patient was in a good state of health and around 2 days ago she started having cold chills and she was progressively getting more short of breath. This morning, the patient woke up at around 5 AM and she was complaining of shakingAnd worsening dyspnea and she was also noted to have diminished level of consciousness. Based on that, the patient was taken to [facility] and upon arrival she was unresponsive. She was immediately intubated. She was found to have a white cell count of 17.8. Hemoglobin was 12.3. Troponins were negative. BNP level was 464. Lactic acid level was 1.6. Influenza screen was negative. CAT scan of the chest and abdomen showed no acute abnormalities. There was an indication of a possible bibasilar pulmonary infiltrates/pneumonia more so on the left lung base. Based on this, the patient was placed on mechanical ventilator, and she was transferred to [facility] for further evaluation I saw this patient in the ED. She was sedated with Versed drip 1 mg an hour. She was on a mechanical ventilator at the rate of 20, tidal volume of 300, FiO2 of 50% and a PEEP of 5. I increased the rate up to 26. I also increased the flow up to 60. This gave the patient an I:E ratio of 1:4. The patient's blood gases that were done prior to this and change showed a pH of 7.25 with a pCO2 of 92 and pO2 of 74. This was done and FiO2 of 40%. Currently she is on bronchodilators for she is on systemic steroids. He is on IV Solu-Medrol 60 mg every 6 hours. She is also on Levaquin as an empiric antibiotic coverage. No reported aspiration. No reported angina. No reported chest pain. She is known to have previous history of coronary artery disease and she is done coronary artery bypass surgery back in 1993. She has bronchospastic and wheezy. Peak air pressure on the mechanical ventilator 36. Static pressures around 17. ET tube is in a good location at the level of the aortic arch. 3 cm above the cornel. No significant orotracheal secretions. On 05/23/2018, I'm seeing this patient for a follow-up. The patient is still intubated on a mechanical ventilator sedated with Diprivan at a dose of 25 g per KG per minute. Arousable yet adequately sedated on today's evaluation. She remains on a mechanical ventilation. She assist-control mode at the rate of 20, tidal volume of 300, FiO2 of 40% and a PEEP of 5. Peak air pressures down to 30 with a static air pressure around 12. Still bronchospastic and wheezy although less compared to yesterday. Chest x-ray shows hyperinflation and ET tube has been pushed down and located around 2 cm above the cornel. Started on bronchodilators. Still on systemic steroids. Hemodynamically stable on no pressors. Producing urine output in the order of 30-40 mL an hour. Afebrile. Her temperature has normalized. Sputum culture and blood culture are still pending. White cell count is at 9.4. Rest of the blood work and electrodes are all within normal limits. Objective - Vital Signs Vital signs: Vital Signs Temp 98.6 F 05/23/18 12:00 Pulse 70 05/23/18 13:00 Resp 23 05/23/18 13:00 BP 103/58 05/23/18 13:00 Pulse Ox 99 05/23/18 13:00 Intake & Output 05/22/18 05/23/18 05/23/18 18:59 06:59 18:59 Intake Total 1259.748 828.456 Output Total 475 280 Balance 784.748 548.456 Weight 57 kg 47.5 kg 47.5 kg Intake: IV 600 Sodium Chloride 0.9% 1, 600 000 ml @ 100 mls/hr IV . Q10H [facility] Rx#:[id number] Intake, IV Titration 1259.748 178.456 Amount Midazolam HCl 100 mg In 5.883 Sodium Chloride 0.9% 80 ml @ 1 MG/HR 1 mls/hr IV .Q24H [facility] Rx#:[id number] Propofol 1,000 mg In 53.865 78.456 Empty Bag 1 bag @ Titrate IV .Q0M [facility] Rx#: [id number] Sodium Chloride 0.9% 1, 1200 100 000 ml @ 100 mls/hr IV . Q10H [facility] Rx#:[id number] Tube Feeding 20 Other 30 Output: Urine 475 280 Other: Voiding Method Indwelling Catheter Indwelling Catheter Indwelling Catheter - Exam Intubated, comfortable likely distress. She is well sedated. Thin and frail with a BMI of 24.5 Head exam was generally normal. There was no scleral icterus or corneal arcus. Mucous membranes were moist. Neck was supple and without jugular venous distension, thyromegaly, or carotid bruits. Carotids were easily palpable bilaterally. There was no adenopathy. The patient has an orogastric and orotracheal tube in place. Lungs sounds are diminished and there is scattered expiratory wheezes without the lung his bilaterally. The patient has a barrel chest. Sternum stable clean and intact. Cardiac exam revealed the PMI to be normally situated and sized. The rhythm was regular and no extrasystoles were noted during several minutes of auscultation. The first and second heart sounds were normal and physiologic splitting of the second heart sound was noted. There were no murmurs, rubs, clicks, or gallops. Abdominal exam revealed normal bowel sounds. The abdomen was soft, non-tender, and without masses, organomegaly, or appreciable enlargement of the abdominal aorta. Examination of the extremities revealed easily palpable radial, femoral and pedal pulses. There was no cyanosis, clubbing or edema. Examination of the skin revealed no evidence of significant rashes, suspicious appearing nevi or other concerning lesions. Neurologically the patient is sedated. - Labs CBC & Chem 7: 05/23/18 04:56 05/23/18 04:56 Labs: Abnormal Lab Results - Last 24 Hours (Table) 05/22/18 05/22/18 05/22/18 Range/Units 15:40 16:47 16:47 WBC 13.3 H (3.8-10.6) k/uL RBC 3.60 L (3.80-5.40) m/uL Hgb 11.0 L (11.4-16.0) gm/dL Neutrophils # (1.3-7.7) k/uL Lymphocytes # (1.0-4.8) k/uL ABG pH 7.25 L (7.35-7.45) ABG pCO2 92 H* (35-45) mmHg ABG pO2 74 L (83-108) mmHg ABG HCO3 40 H* (21-25) mmol/L ABG Total CO2 43 H (19-24) mmol/L ABG O2 Saturation 92.5 L (94-97) % Potassium (3.5-5.1) mmol/L Carbon Dioxide 35 H (22-30) mmol/L BUN 27 H (7-17) mg/dL Glucose 133 H (74-99) mg/dL POC Glucose (mg/dL) (75-99) mg/dL Calcium (8.4-10.2) mg/dL Phosphorus 4.8 H (2.5-4.5) mg/dL Total Protein 6.0 L (6.3-8.2) g/dL Albumin 3.0 L (3.5-5.0) g/dL Urine Protein (Negative) Urine Ketones (Negative) Urine Bacteria (None) /hpf Hyaline Casts (0-2) /lpf Urine Mucus (None) /hpf 05/22/18 05/22/18 05/22/18 Range/Units 17:36 18:50 20:59 WBC (3.8-10.6) k/uL RBC (3.80-5.40) m/uL Hgb (11.4-16.0) gm/dL Neutrophils # (1.3-7.7) k/uL Lymphocytes # (1.0-4.8) k/uL ABG pH (7.35-7.45) ABG pCO2 63 H (35-45) mmHg ABG pO2 118 H (83-108) mmHg ABG HCO3 37 H (21-25) mmol/L ABG Total CO2 (19-24) mmol/L ABG O2 Saturation 99.0 H (94-97) % Potassium (3.5-5.1) mmol/L Carbon Dioxide (22-30) mmol/L BUN (7-17) mg/dL Glucose (74-99) mg/dL POC Glucose (mg/dL) 138 H (75-99) mg/dL Calcium (8.4-10.2) mg/dL Phosphorus (2.5-4.5) mg/dL Total Protein (6.3-8.2) g/dL Albumin (3.5-5.0) g/dL Urine Protein 1+ H (Negative) Urine Ketones Trace H (Negative) Urine Bacteria Rare H (None) /hpf Hyaline Casts 8 H (0-2) /lpf Urine Mucus Occasional H (None) /hpf 05/23/18 05/23/18 05/23/18 Range/Units 04:37 04:56 04:56 WBC (3.8-10.6) k/uL RBC (3.80-5.40) m/uL Hgb (11.4-16.0) gm/dL Neutrophils # 8.3 H (1.3-7.7) k/uL Lymphocytes # 0.6 L (1.0-4.8) k/uL ABG pH 7.31 L (7.35-7.45) ABG pCO2 70 H (35-45) mmHg ABG pO2 121 H (83-108) mmHg ABG HCO3 35 H (21-25) mmol/L ABG Total CO2 37 H (19-24) mmol/L ABG O2 Saturation 99.2 H (94-97) % Potassium 5.2 H (3.5-5.1) mmol/L Carbon Dioxide (22-30) mmol/L BUN 29 H (7-17) mg/dL Glucose (74-99) mg/dL POC Glucose (mg/dL) (75-99) mg/dL Calcium 7.9 L (8.4-10.2) mg/dL Phosphorus (2.5-4.5) mg/dL Total Protein (6.3-8.2) g/dL Albumin (3.5-5.0) g/dL Urine Protein (Negative) Urine Ketones (Negative) Urine Bacteria (None) /hpf Hyaline Casts (0-2) /lpf Urine Mucus (None) /hpf Microbiology - Last 24 Hours (Table) 05/22/18 15:34 Gram Stain - Preliminary Sputum Sputum Culture - Preliminary Assessment and Plan Plan: Assessment 1 acute hypoxic/hypercapnic respiratory failure secondary to COPD exacerbation and bilateral lower lobe pneumonia. On today's evaluation the patient remains intubated on a mechanical ventilator. Peak airway pressures lower impaired to yesterday. The patient is being treated for COPD exacerbation with accommodation bronchospasm wheezing or chest x-ray remains free of any acute pulmonary infiltration. Blood gases showing improvement in the oxygenation and acid base status. 2 advanced severe COPD with a baseline FEV1 of 39% of predicted 3 acute on top of chronic hypercapnic respiratory failure with acute on chronic respiratory acidosis secondary to above. 4 acute ventilator-dependent history failure secondary to above 5 coronary artery disease appears bypass surgery 6 aortic stenosis 7 hypertension 8 leukocytosis secondary to above Plan Keep the patient sedated. Keep the patient on mechanical ventilator for 24 hours. No plans for extubation today however I am considering to give the patient a weaning trial and extubated to BiPAP tomorrow. Based on age and his advanced lung disease, think we need to move him fast and started to wean it off the mechanical ventilator as soon as possible. I think this patient would ultimately require BiPAP as part of her weaning as she is coming off the mechanical ventilator. She has been doing well. She somewhat unlikely stable. She is well sedated. She is on examination bronchodilators and steroids and antibiotics. She is afebrile. Discussed the case with the family. Discussed the case with the daughter. We'll continue to follow make further recommendations based on her progress. This evaluation was done more than 30 minutes. Time with Patient: Greater than 30
--- NOTE | 2018-05-23 16:28 | ECHOF ---
Referral Reason:aortic stenosis MEASUREMENTS -------- HEIGHT: 152.4 cm WEIGHT: 47.2 kg BP: 88/47 RVIDd: 3.3 cm (< 3.3) IVSd: 0.9 cm (0.6 - 1.1) LVIDd: 4.4 cm (3.9 - 5.3) LVPWd: 0.9 cm (0.6 - 1.1) IVSs: 1.2 cm LVIDs: 2.6 cm LVPWs: 1.3 cm LAESV Index (A-L): 23.14 ml/m Ao Diam: 2.6 cm (2.0 - 3.7) AV Cusp: 1.1 cm (1.5 - 2.6) LA Diam: 3.0 cm (2.7 - 3.8) MV EXCURSION: 10.412 mm (> 18.000) MV EF SLOPE: 40 mm/s (70 - 150) EPSS: 0.6 cm MV E Mario: 1.17 m/s MV DecT: 186 ms MV A Mario: 1.21 m/s MV E/A Ratio: 0.96 AV maxP.56 mmHg AV meanP.23 mmHg AR PHT: 354 ms RAP: 20.00 mmHg RVSP: 56.96 mmHg FINDINGS -------- Sinus rhythm. This was a technically good study. The left ventricular size is normal. Left ventricular wall thickness is normal. Overall left vent ricular systolic function is normal with, an EF between 55 - 60 %. The right ventricle is mildly enlarged. Normal LA size by volume 22+/-6 ml/m2. The right atrium is normal in size. There is moderate aortic valve sclerosis. There is mild aortic regurgitation. There is mild aorti c stenosis present. Peak/mean gradient across the Aortic Valve is 19.56mmHg / 10.23mmHg. The mitral valve leaflets are mildly thickened. Mild mitral annular calcification present. Modera [id number] mitral regurgitation is present. Mild tricuspid regurgitation present. There is moderate pulmonary hypertension. The right ventric ular systolic pressure, as measured by Doppler, is 56.96mmHg. The pulmonic valve was not well visualized. The aortic root size is normal. The inferior vena cava is dilated with no significant inspiratory collapse which is consistent estima ty right atrial pressure of >20 mmHg. There is no pericardial effusion. CONCLUSIONS -------- 1. Sinus rhythm. 2. This was a technically good study. 3. The left ventricular size is normal. 4. Left ventricular wall thickness is normal. 5. Overall left ventricular systolic function is normal with, an EF between 55 - 60 %. 6. The right ventricle is mildly enlarged. 7. Normal LA size by volume 22+/-6 ml/m2. 8. There is moderate aortic valve sclerosis. 9. There is mild aortic regurgitation. 10. There is mild aortic stenosis present. 11. Peak/mean gradient across the Aortic Valve is 19.56mmHg / 10.23mmHg. 12. The mitral valve leaflets are mildly thickened. 13. Mild mitral annular calcification present. 14. [id number] mitral regurgitation is present. 15. Mild tricuspid regurgitation present. 16. There is moderate pulmonary hypertension. 17. The pulmonic valve was not well visualized. 18. The aortic root size is normal. 19. The inferior vena cava is dilated with no significant inspiratory collapse which is consistent es timated right atrial pressure of >20 mmHg. 20. There is no pericardial effusion. CODING ADVISOR: Pat Peck RDCS
[2018-05-23 17:43] LABS: Glucose,Whole Blood 113 mg/dL (75-99)
[2018-05-23] MEDS: LEVOFLOXACIN 750MG-D5W PMX 750 MG in DEXTROSE/WATER 1 150ML.BAG IVPB SCH (18:58)
[2018-05-23 21:32] LABS: Hemoglobin A1C 5.9 % (4.0-6.0)
[2018-05-23 23:50] LABS: Glucose,Whole Blood 108 mg/dL (75-99)
[2018-05-24 05:36] LABS: ABG HCO3 35 mmol/L (21-25); ABG Oxygen Saturation 96.3 % (94-97); ABG PH 7.29 (7.35-7.45); ABG PO2 87 mmHg (83-108); ABG TCO2 37 mmol/L (19-24)
[2018-05-24] MEDS: PROPOFOL 1,000 MG in EMPTY BAG 1 BAG IV SCH (05:37)
[2018-05-24] MEDS: methylPREDNISolone SOD SUCCI 125 MG/2 ML VIAL IV SCH ×3 (05:38→18:30)
[2018-05-24 05:49] LABS: Basophils % (A) 0 %; Eosinophils % (A) 0 %; HCT 32.6 % (34.0-46.0); HGB 10.1 gm/dL (11.4-16.0); Hypochromasia Moderate; Lymphocytes # (A) 0.4 k/uL (1.0-4.8); Lymphocytes % (A) 4 %; MCH 30.5 pg (25.0-35.0); MCHC 30.8 g/dL (31.0-37.0); MCV 99.1 fL (80.0-100.0); Monocytes # (A) 0.4 k/uL (0-1.0); Monocytes % (A) 4 %; Neutrophils # (A) 8.2 k/uL (1.3-7.7); Neutrophils % (A) 90 %; Platelet Count 276 k/uL (150-450); RBC 3.29 m/uL (3.80-5.40); RDW 13.1 % (11.5-15.5)
[2018-05-24 05:52] LABS: ABG PCO2 73 mmHg (35-45)
[2018-05-24 06:01] LABS: Anion Gap 3 mmol/L; Blood Urea Nitrogen 27 mg/dL (7-17); Calcium 8.1 mg/dL (8.4-10.2); Carbon Dioxide 33 mmol/L (22-30); Chloride 104 mmol/L (98-107); Glucose 130 mg/dL (74-99); Magnesium 2.1 mg/dL (1.6-2.3); Phosphorus 3.4 mg/dL (2.5-4.5); Potassium 4.9 mmol/L (3.5-5.1); Sodium 140 mmol/L (137-145)
--- NOTE | 2018-05-24 06:44 | XR ---
EXAMINATION TYPE: XR chest 1V portable DATE OF EXAM: 05/24/2018 HISTORY: Tube placement. REFERENCE: Previous study dated 05/23/2018. FINDINGS: There has been a midline sternotomy. The patient is ET tube and NG tube remain in place, un changed in appearance. There is worsening bibasilar airspace disease. I cannot exclude small effusions. There is vascular co ngestion without riky edema. Heart size is upper limits of normal. IMPRESSION: 1. BIBASILAR AIRSPACE DISEASE. 2. SMALL, BILATERAL EFFUSIONS. 3. BORDERLINE CARDIOMEGALY. 4. VASCULAR CONGESTION WITHOUT RIKY EDEMA.
[2018-05-24] MEDS: IPRATROPIUM-ALBUTEROL 3 ML NEB INHALATION SCH ×4 (07:13→20:04)
[2018-05-24] MEDS: INSULIN ASPART 100 UNIT/ML 1 ML 10 ML VIAL SQ SCH ×2 (08:31→18:34)
[2018-05-24] MEDS: DOCUSATE 100 MG CAP PO SCH ×2 (08:37→20:09)
[2018-05-24] MEDS: CYANOCOBALAMIN 500 MCG TAB PO SCH (08:37)
[2018-05-24] MEDS: ENOXAPARIN 40 MG/0.4 ML SYRINGE SQ SCH (08:37)
[2018-05-24] MEDS: CHLORHEXIDINE GLUCONATE 15 ML CUP MUCOUS MEM SCH ×2 (08:37→20:08)
[2018-05-24] MEDS: CHOLECALCIFEROL 400 UNIT TAB PO SCH (08:37)
[2018-05-24] MEDS: FAMOTIDINE 20 MG/2 ML VIAL IV SCH ×2 (08:37→20:21)
[2018-05-24] MEDS: CALCIUM CARBONATE 500 MG CHEWABLE PO SCH (08:37)
[2018-05-24] MEDS ORDERED: FUROSEMIDE 10 MG/ML 4 ML VIAL IV STA ×2 (09:14→19:33)
[2018-05-24] MEDS: SODIUM CHLORIDE 0.9% 1,000 ML IV SCH ×2 (09:44→18:34)
--- NOTE | 2018-05-24 09:54 | P.PN ---
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 On arrival [facility] she was unresponsive and was intubated. Initial analysis showed the patient to be tachycardic. She was found to have a white blood cell count of 17.8 and hemoglobin 12.3. She was also found to have slightly elevated BUN/creatinine 21. Her urinalysis was negative. Troponin was negative. BNP was 464. Lactic acid was 1.6. An influenza A was negative. She underwent a CT head which showed no acute process, CT abdomen and pelvis that showed no acute intra- abdominal process but possible left lower lobe pneumonia. Chest x-ray was negative. She was given IV fluid and doxycycline. Arrangements were made for transfer here. On arrival here an ABG was performed which showed a pH of 7.2 and a pCO2 of 110. Chest x-ray showed ET tube in good position with possible left sided and right lower lobe infiltrate. Repeat ABG showed continue hypercapnia on vent adjustments were made. Chest x-ray showed possible infiltrate and antibiotics were broadened to Levaquin. She was started on steroids, bronchodilators, and antibiotics. Sputum culture was obtained and shows normal respiratory terry. She was subsequently admitted to the ICU. Her PH and CO2 improved on the vent. She was maintained on the aforementioned treatment. Overnight awake and alert on vent. Patient seen and examined at bedside. Shaking head yes and no appropriately on vent despite minimal doses of propofol. Denies any pain, chest pain, or discomfort. Denies any shortness of breath. People could not yes or no appropriately to plan of care. Able to lift head off of her pillow. Objective - Vital Signs Vital signs: Vital Signs Temp 98.8 F 05/24/18 04:00 Pulse 65 05/24/18 07:35 Resp 20 05/24/18 07:00 BP 105/54 05/24/18 07:00 Pulse Ox 96 05/24/18 07:00 Intake & Output 05/23/18 05/24/18 05/24/18 18:59 06:59 18:59 Intake Total 2735.461 8723.994 130 Output Total 415 315 25 Balance 5457.590 0156.994 105 Weight 47.5 kg Intake: IV 1100 1200 100 Sodium Chloride 0.9% 1, 1100 1200 100 000 ml @ 100 mls/hr IV . Q10H JIE Rx#:[id number] Intake, IV Titration 234.229 88.994 Amount Propofol 1,000 mg In 134.229 88.994 Empty Bag 1 bag @ Titrate IV .Q0M JIE Rx#: [id number] Sodium Chloride 0.9% 1, 100 000 ml @ 100 mls/hr IV . Q10H JIE Rx#:[id number] Tube Feeding 40 220 30 Other 60 Output: Urine 415 315 25 Other: Voiding Method Indwelling Catheter Indwelling Catheter - Exam General: moderate distress, ill-appearing, appears at stated age Derm: warm, dry Head: atraumatic, normocephalic, symmetric Eyes: EOMI, no lid lag, anicteric sclera Mouth: no lip lesion, mucus membranes moist Neck: Supple, trachea midline Cardiovascular: S1S2 reg, no murmur, positive posterior tibial pulse bilateral, Lungs: faint expiratory wheeze bilateral, no rhonchi, no rales , no accessory muscle use, and Abdominal: soft, nontender to palpation, no guarding, no appreciable organomegaly Ext: no gross muscle atrophy, trace edema left lower extremity, no contractures Neuro: Moving all 4 extremities independently, following commands Psych: Awake, alert, and calm despite propofol use - Labs CBC & Chem 7: 05/24/18 05:13 05/24/18 05:13 Labs: Abnormal Lab Results - Last 24 Hours (Table) 05/23/18 05/23/18 05/24/18 Range/Units 17:38 23:48 05:13 RBC 3.29 L (3.80-5.40) m/uL Hgb 10.1 L (11.4-16.0) gm/dL Hct 32.6 L (34.0-46.0) % MCHC 30.8 L (31.0-37.0) g/dL Neutrophils # 8.2 H (1.3-7.7) k/uL Lymphocytes # 0.4 L (1.0-4.8) k/uL ABG pH (7.35-7.45) ABG pCO2 (35-45) mmHg ABG HCO3 (21-25) mmol/L ABG Total CO2 (19-24) mmol/L Carbon Dioxide (22-30) mmol/L BUN (7-17) mg/dL Glucose (74-99) mg/dL POC Glucose (mg/dL) 113 H 108 H (75-99) mg/dL Calcium (8.4-10.2) mg/dL 05/24/18 05/24/18 Range/Units 05:13 05:32 RBC (3.80-5.40) m/uL Hgb (11.4-16.0) gm/dL Hct (34.0-46.0) % MCHC (31.0-37.0) g/dL Neutrophils # (1.3-7.7) k/uL Lymphocytes # (1.0-4.8) k/uL ABG pH 7.29 L (7.35-7.45) ABG pCO2 73 H* (35-45) mmHg ABG HCO3 35 H (21-25) mmol/L ABG Total CO2 37 H (19-24) mmol/L Carbon Dioxide 33 H (22-30) mmol/L BUN 27 H (7-17) mg/dL Glucose 130 H (74-99) mg/dL POC Glucose (mg/dL) (75-99) mg/dL Calcium 8.1 L (8.4-10.2) mg/dL Microbiology - Last 24 Hours (Table) 05/22/18 15:34 Gram Stain - Final Sputum Sputum Culture - Final 05/22/18 17:58 Blood Culture - Preliminary Blood No Growth after 24 hours 05/22/18 16:47 Blood Culture - Preliminary Blood No Growth after 24 hours Assessment and Plan Assessment: CAD acquired pneumonia, possible gram-negative -Levaquin D # 3/5 -Legionella urinary antigen pending, sputum culture with normal terry -IV fluids -follow CXR Acute exacerbation of COPD stage 3/4 with moderate pulmonary HTN -Bronchodilators -Steroids -Pulmonary hygiene -Pulmonary/critical care recommendations appreciated Acute on chronic hypoxic hypercapnic respiratory failure -Treatment as above -Vent management per pulmonary Hypotensive, with hx of HTN -Continue to hold Norvasc, Lopressor, and Imdur - follow BP -off levo Dyslipidemia -Statin ASCAD - ASA, statin GERD - IV pepcid DVT prophylaxis: Lovenox Discussed with: ED physician, Dr. Washington, nursing Anticipated discharge date: 4-[address]: undetermined A total of 35 minutes of time was spent on this complex patient.
[2018-05-24 12:17] LABS: Glucose,Whole Blood 150 mg/dL (75-99)
[2018-05-24 12:54] LABS: ABG Base Excess 13.9 mmol/L; ABG HCO3 39 mmol/L (21-25); ABG PCO2 65 mmHg (35-45); ABG PH 7.38 (7.35-7.45); ABG PO2 94 mmHg (83-108); ABG TCO2 41 mmol/L (19-24)
[2018-05-24 12:56] LABS: ABG Oxygen Saturation 97.4 % (94-97)
--- NOTE | 2018-05-24 13:53 | P.PN ---
Subjective Progress Note Date: 05/24/18 This is an 87-year-old female patient, with known history of advanced COPDEV1 of 39% of predicted, diffusion capacity of 32% of predicted, whereas been followed up in our office and the patient was brought into the hospital today because of worsening shortness of breath. Apparently the patient was in a good state of health and around 2 days ago she started having cold chills and she was progressively getting more short of breath. This morning, the patient woke up at around 5 AM and she was complaining of shakingAnd worsening dyspnea and she was also noted to have diminished level of consciousness. Based on that, the patient was taken to [facility] and upon arrival she was unresponsive. She was immediately intubated. She was found to have a white cell count of 17.8. Hemoglobin was 12.3. Troponins were negative. BNP level was 464. Lactic acid level was 1.6. Influenza screen was negative. CAT scan of the chest and abdomen showed no acute abnormalities. There was an indication of a possible bibasilar pulmonary infiltrates/pneumonia more so on the left lung base. Based on this, the patient was placed on mechanical ventilator, and she was transferred to [facility] for further evaluation I saw this patient in the ED. She was sedated with Versed drip 1 mg an hour. She was on a mechanical ventilator at the rate of 20, tidal volume of 300, FiO2 of 50% and a PEEP of 5. I increased the rate up to 26. I also increased the flow up to 60. This gave the patient an I:E ratio of 1:4. The patient's blood gases that were done prior to this and change showed a pH of 7.25 with a pCO2 of 92 and pO2 of 74. This was done and FiO2 of 40%. Currently she is on bronchodilators for she is on systemic steroids. He is on IV Solu-Medrol 60 mg every 6 hours. She is also on Levaquin as an empiric antibiotic coverage. No reported aspiration. No reported angina. No reported chest pain. She is known to have previous history of coronary artery disease and she is done coronary artery bypass surgery back in 1993. She has bronchospastic and wheezy. Peak air pressure on the mechanical ventilator 36. Static pressures around 17. ET tube is in a good location at the level of the aortic arch. 3 cm above the cornel. No significant orotracheal secretions. On 05/23/2018, I'm seeing this patient for a follow-up. The patient is still intubated on a mechanical ventilator sedated with Diprivan at a dose of 25 g per KG per minute. Arousable yet adequately sedated on today's evaluation. She remains on a mechanical ventilation. She assist-control mode at the rate of 20, tidal volume of 300, FiO2 of 40% and a PEEP of 5. Peak air pressures down to 30 with a static air pressure around 12. Still bronchospastic and wheezy although less compared to yesterday. Chest x-ray shows hyperinflation and ET tube has been pushed down and located around 2 cm above the cornel. Started on bronchodilators. Still on systemic steroids. Hemodynamically stable on no pressors. Producing urine output in the order of 30-40 mL an hour. Afebrile. Her temperature has normalized. Sputum culture and blood culture are still pending. White cell count is at 9.4. Rest of the blood work and electrodes are all within normal limits. On 05/24/2018, I'm seeing this patient for a follow-up. As mentioned earlier, the patient has advanced COPD with chronic hypoxic history failure and the patient was intubated and placed on mechanical ventilator because of COPD exacerbation. This morning, the patient was taken up even while in sedation. The patient was on propofol infusion 25 g. The patient has a peak air pressures around 28 and a static airway pressure of around 12. The patient's vent setting is essentially the same an assist-control mode at the rate of 20 with a tidal volume of 300 and FiO2 of 40% with a PEEP of 5. Asked x-ray showed some mild pulmonary vascular congestion. ET tube was in a good location. No airspace disease. The blood gases while the patient assist- control mode of ventilation showed a pH of 7.29 with a pCO2 of 73 and a pO2 of 87. On clinical exam she was much less bronchospastic and wheezy. The patient is on empiric antibiotic coverage with Levaquin. She'll patient remains on a combination of DuoNeb nebulized treatments around the clock and IV Solu-Medrol. Based on all this, I give the patient for a negative IV Lasix. Subsequently I took off the Diprivan. The patient looked to be calm and comfortable. She was status with the mechanical ventilator. Weaning parameters were checked. She was given a very brief spontaneous breathing trial a pressure support of 5 and a PEEP of 5. At that point I decided to extubate this patient to a BiPAP knowing that she may not be able to withstand longer periods of spontaneous breathing trial because of her limited lung capacity and her breathing to a smaller tube of 7.5 caliber. I extubate the patient is a BiPAP and she was able to tolerate BiPAP without any major difficulties. Currently she is on a BiPAP setting of 12/5 cm of water and FiO2 of 50%. A follow-up blood gases showed a pH of 7.38 his pCO2 of 65 and pO2 of 94. This was done while the patient on a 50% FiO2. She is awake and alert and she is following commands and answering questions appropriately. No other significant events overnight. Objective - Vital Signs Vital signs: Vital Signs Temp 98.6 F 05/24/18 12:00 Pulse 79 05/24/18 12:00 Resp 12 05/24/18 12:00 BP 108/57 05/24/18 12:00 Pulse Ox 99 05/24/18 12:00 Intake & Output 05/23/18 05/24/18 05/24/18 18:59 06:59 18:59 Intake Total 3539.831 1591.994 783.708 Output Total 415 315 835 Balance 2923.983 5468.994 -51.292 Weight 47.5 kg Intake: IV 1100 1200 600 Sodium Chloride 0.9% 1, 1100 1200 600 000 ml @ 100 mls/hr IV . Q10H JIE Rx#:[id number] Intake, IV Titration 234.229 88.994 33.708 Amount Propofol 1,000 mg In 134.229 88.994 33.708 Empty Bag 1 bag @ Titrate IV .Q0M JIE Rx#: [id number] Sodium Chloride 0.9% 1, 100 000 ml @ 100 mls/hr IV . Q10H JIE Rx#:[id number] Tube Feeding 40 220 120 Other 60 30 Output: Urine 415 315 835 Other: Voiding Method Indwelling Catheter Indwelling Catheter Indwelling Catheter - Exam She is currently extubated on a BiPAP and she is able to tolerate the BiPAP without any major difficulties. No signs of any respiratory distress or use of extremities and muscles of breathing. Head exam was generally normal. There was no scleral icterus or corneal arcus. Mucous membranes were moist. Neck was supple and without jugular venous distension, thyromegaly, or carotid bruits. Carotids were easily palpable bilaterally. There was no adenopathy. The patient has an orogastric and orotracheal tube in place. Lungs sounds are diminished and there is scattered expiratory wheezes without the lung his bilaterally. The patient has a barrel chest. Sternum stable clean and intact. Cardiac exam revealed the PMI to be normally situated and sized. The rhythm was regular and no extrasystoles were noted during several minutes of auscultation. The first and second heart sounds were normal and physiologic splitting of the second heart sound was noted. There were no murmurs, rubs, clicks, or gallops. Abdominal exam revealed normal bowel sounds. The abdomen was soft, non-tender, and without masses, organomegaly, or appreciable enlargement of the abdominal aorta. Examination of the extremities revealed easily palpable radial, femoral and pedal pulses. There was no cyanosis, clubbing or edema. Examination of the skin revealed no evidence of significant rashes, suspicious appearing nevi or other concerning lesions. Neurologically the patient is awake and alert and following commands and answer questions appropriately. - Labs CBC & Chem 7: 05/24/18 05:13 05/24/18 05:13 Labs: Abnormal Lab Results - Last 24 Hours (Table) 05/23/18 05/23/18 05/24/18 Range/Units 17:38 23:48 05:13 RBC 3.29 L (3.80-5.40) m/uL Hgb 10.1 L (11.4-16.0) gm/dL Hct 32.6 L (34.0-46.0) % MCHC 30.8 L (31.0-37.0) g/dL Neutrophils # 8.2 H (1.3-7.7) k/uL Lymphocytes # 0.4 L (1.0-4.8) k/uL ABG pH (7.35-7.45) ABG pCO2 (35-45) mmHg ABG HCO3 (21-25) mmol/L ABG Total CO2 (19-24) mmol/L ABG O2 Saturation (94-97) % Carbon Dioxide (22-30) mmol/L BUN (7-17) mg/dL Glucose (74-99) mg/dL POC Glucose (mg/dL) 113 H 108 H (75-99) mg/dL Calcium (8.4-10.2) mg/dL 05/24/18 05/24/18 05/24/18 Range/Units 05:13 05:32 12:14 RBC (3.80-5.40) m/uL Hgb (11.4-16.0) gm/dL Hct (34.0-46.0) % MCHC (31.0-37.0) g/dL Neutrophils # (1.3-7.7) k/uL Lymphocytes # (1.0-4.8) k/uL ABG pH 7.29 L (7.35-7.45) ABG pCO2 73 H* (35-45) mmHg ABG HCO3 35 H (21-25) mmol/L ABG Total CO2 37 H (19-24) mmol/L ABG O2 Saturation (94-97) % Carbon Dioxide 33 H (22-30) mmol/L BUN 27 H (7-17) mg/dL Glucose 130 H (74-99) mg/dL POC Glucose (mg/dL) 150 H (75-99) mg/dL Calcium 8.1 L (8.4-10.2) mg/dL 05/24/18 Range/Units 12:52 RBC (3.80-5.40) m/uL Hgb (11.4-16.0) gm/dL Hct (34.0-46.0) % MCHC (31.0-37.0) g/dL Neutrophils # (1.3-7.7) k/uL Lymphocytes # (1.0-4.8) k/uL ABG pH (7.35-7.45) ABG pCO2 65 H (35-45) mmHg ABG HCO3 39 H (21-25) mmol/L ABG Total CO2 41 H (19-24) mmol/L ABG O2 Saturation 97.4 H (94-97) % Carbon Dioxide (22-30) mmol/L BUN (7-17) mg/dL Glucose (74-99) mg/dL POC Glucose (mg/dL) (75-99) mg/dL Calcium (8.4-10.2) mg/dL Microbiology - Last 24 Hours (Table) 05/22/18 15:34 Gram Stain - Final Sputum Sputum Culture - Final 05/22/18 17:58 Blood Culture - Preliminary Blood No Growth after 24 hours 05/22/18 16:47 Blood Culture - Preliminary Blood No Growth after 24 hours Assessment and Plan Plan: Assessment 1 acute hypoxic/hypercapnic respiratory failure secondary to COPD exacerbation and bilateral lower lobe pneumonia. The patient was looking better and the patient was obvious last bronchus spastic and wheezy on today's evaluation. Based on that, the patient was weaned off the mechanical ventilated and the patient was extubated to BiPAP at a pressure of 12/5 cm of water with an FiO2 of 50%. Subsequent blood gases showed compensated hypercapnic respiratory failure. No significant hypoxemia. The patient is clinically improving and she was extubated this morning in the intensive care unit. 2 advanced severe COPD with a baseline FEV1 of 39% of predicted 3 acute on top of chronic hypercapnic respiratory failure with acute on chronic respiratory acidosis secondary to above. 4 acute ventilator-dependent history failure secondary to above 5 coronary artery disease appears bypass surgery 6 aortic stenosis 7 hypertension 8 leukocytosis secondary to above 9 valvular heart disease with moderate degree of mitral regurgitation, mild aortic stenosis and secondary pulmonary hypertension. Plan Keep the patient off sedation. The IV Fluids to KVO. Lasix Was Given. Continue Bronchodilators. Continue Systemic Steroids and the Patient Is on IV Solu Medrol.. Continue Levaquin. The echocardiogram showed a preserved LV function with an ejection fraction of 50-55%. The patient has moderate degree of aortic sclerosis with mild stenosis and the patient has moderate to severe mitral regurgitation. Estimated pulmonary artery pressure is moderate. Note that this is a critically care evaluation. The evaluation was done and more than 40 minutes during which the patient was weaned off the mechanical ventilator and then extubated to BiPAP. She is awake right now. She is following commands. She is quite comfortable. We'll continue to follow. Time with Patient: Greater than 30
[2018-05-24] MEDS: FLUTICASONE 50MCG/SPRAY NASAL 16GM EA NOSTRIL SCH (14:57)
[2018-05-24] MEDS: MULTIVITAMINS, THERA 1 EACH TAB PO SCH (14:57)
[2018-05-24] MEDS: LEVOFLOXACIN 750MG-D5W PMX 750 MG in DEXTROSE/WATER 1 150ML.BAG IVPB SCH (18:35)
[2018-05-24 18:50] LABS: Glucose,Whole Blood 116 mg/dL (75-99)
[2018-05-24 23:42] LABS: Glucose,Whole Blood 108 mg/dL (75-99)
[2018-05-25] MEDS: methylPREDNISolone SOD SUCCI 125 MG/2 ML VIAL IV SCH ×5 (00:03→23:26)
[2018-05-25 05:18] LABS: Basophils % (A) 0 %; Eosinophils % (A) 0 %; HCT 35.4 % (34.0-46.0); HGB 11.6 gm/dL (11.4-16.0); Hypochromasia Slight; Lymphocytes # (A) 0.3 k/uL (1.0-4.8); Lymphocytes % (A) 3 %; MCH 31.6 pg (25.0-35.0); MCHC 32.7 g/dL (31.0-37.0); MCV 96.6 fL (80.0-100.0); Monocytes # (A) 0.4 k/uL (0-1.0); Monocytes % (A) 5 %; Neutrophils # (A) 7.6 k/uL (1.3-7.7); Neutrophils % (A) 90 %; Platelet Count 288 k/uL (150-450); RBC 3.66 m/uL (3.80-5.40); RDW 13.1 % (11.5-15.5); WBC 8.4 k/uL (3.8-10.6)
[2018-05-25 05:24] LABS: Blood Urea Nitrogen 25 mg/dL (7-17); Calcium 8.7 mg/dL (8.4-10.2); Chloride 91 mmol/L (98-107); Glucose 122 mg/dL (74-99); Magnesium 1.9 mg/dL (1.6-2.3); Phosphorus 2.9 mg/dL (2.5-4.5); Potassium 3.9 mmol/L (3.5-5.1); Sodium 140 mmol/L (137-145)
[2018-05-25 05:30] LABS: Anion Gap 6 mmol/L
[2018-05-25 05:59] LABS: Carbon Dioxide 43 mmol/L (22-30)
[2018-05-25 06:00] LABS: Glucose,Whole Blood 114 mg/dL (75-99)
[2018-05-25] MEDS ORDERED: POTASSIUM BICARBONATE/CIT AC 20 MEQ TABLET.EFF NG-TUBE SCH (06:00)
[2018-05-25] MEDS: MAGNESIUM SULFATE-D5W PMX 1 GM in DEXTROSE/WATER 1 100ML.BAG IVPB SCH ×2 (06:43→08:48)
--- NOTE | 2018-05-25 07:23 | XR ---
EXAMINATION TYPE: XR chest 1V portable DATE OF EXAM: 05/25/2018 HISTORY: Shortness of breath. COMPARISON: 05/24/2018 TECHNIQUE: Single view of the chest is submitted. FINDINGS: Demonstrated are scattered senescent parenchymal change. Patchy basilar infiltrates with small effusions noted. Upper lobe emphysematous changes redemonstrated. Endotracheal and NG tubes have been removed. The heart is stable. Hilar and mediastinal structures are within normal limits. Degenerative changes are seen of the dorsal spine. IMPRESSION: 1. Patchy basilar infiltrates with small effusions noted. Upper lobe emphysematous changes redemonstrated.
[2018-05-25 07:26] LABS: ABG PCO2 102 mmHg (35-45)
[2018-05-25 07:27] LABS: ABG HCO3 40 mmol/L (21-25)
[2018-05-25] MEDS: ENOXAPARIN 40 MG/0.4 ML SYRINGE SQ SCH (08:48)
[2018-05-25] MEDS: FLUTICASONE 50MCG/SPRAY NASAL 16GM EA NOSTRIL SCH (08:48)
[2018-05-25] MEDS: FAMOTIDINE 20 MG/2 ML VIAL IV SCH ×2 (08:48→20:56)
[2018-05-25] MEDS: CYANOCOBALAMIN 500 MCG TAB PO SCH (08:49)
[2018-05-25] MEDS: amLODIPine 10 MG TAB PO SCH (08:49)
[2018-05-25] MEDS: ASPIRIN 81 MG PO SCH (08:49)
[2018-05-25] MEDS: DOCUSATE 100 MG CAP PO SCH ×2 (08:49→20:56)
[2018-05-25] MEDS: ISOSORBIDE MONONITRATE ER 60 MG TAB.ER.24H PO SCH (08:49)
[2018-05-25] MEDS: CALCIUM CARBONATE 500 MG CHEWABLE PO SCH (08:49)
[2018-05-25] MEDS: CHOLECALCIFEROL 400 UNIT TAB PO SCH (08:49)
[2018-05-25] MEDS: IPRATROPIUM-ALBUTEROL 3 ML NEB INHALATION SCH ×4 (09:01→21:22)
[2018-05-25] MEDS: CHLORHEXIDINE GLUCONATE 15 ML CUP MUCOUS MEM SCH (09:02)
--- NOTE | 2018-05-25 11:33 | P.PN ---
Subjective Progress Note Date: 05/25/18 Principal diagnosis: Acute hypoxic and hypercapnic respiratory failure secondary to COPD exacerbation and bilateral lower lobe pneumonia. This is an 87-year-old female patient, with known history of advanced COPDEV1 of 39% of predicted, diffusion capacity of 32% of predicted, whereas been followed up in our office and the patient was brought into the hospital today because of worsening shortness of breath. Apparently the patient was in a good state of health and around 2 days ago she started having cold chills and she was progressively getting more short of breath. This morning, the patient woke up at around 5 AM and she was complaining of shakingAnd worsening dyspnea and she was also noted to have diminished level of consciousness. Based on that, the patient was taken to [facility] and upon arrival she was unresponsive. She was immediately intubated. She was found to have a white cell count of 17.8. Hemoglobin was 12.3. Troponins were negative. BNP level was 464. Lactic acid level was 1.6. Influenza screen was negative. CAT scan of the chest and abdomen showed no acute abnormalities. There was an indication of a possible bibasilar pulmonary infiltrates/pneumonia more so on the left lung base. Based on this, the patient was placed on mechanical ventilator, and she was transferred to [facility] for further evaluation I saw this patient in the ED. She was sedated with Versed drip 1 mg an hour. She was on a mechanical ventilator at the rate of 20, tidal volume of 300, FiO2 of 50% and a PEEP of 5. I increased the rate up to 26. I also increased the flow up to 60. This gave the patient an I:E ratio of 1:4. The patient's blood gases that were done prior to this and change showed a pH of 7.25 with a pCO2 of 92 and pO2 of 74. This was done and FiO2 of 40%. Currently she is on bronchodilators for she is on systemic steroids. He is on IV Solu-Medrol 60 mg every 6 hours. She is also on Levaquin as an empiric antibiotic coverage. No reported aspiration. No reported angina. No reported chest pain. She is known to have previous history of coronary artery disease and she is done coronary artery bypass surgery back in 1993. She has bronchospastic and wheezy. Peak air pressure on the mechanical ventilator 36. Static pressures around 17. ET tube is in a good location at the level of the aortic arch. 3 cm above the cornel. No significant orotracheal secretions. On 05/25/2018, patient remains on BiPAP, IPAP of 12, EPAP of 5, FiO2 is down to 40%, patient's saturations are in the 90s. She seems to be comfortable on BiPAP , however she does desaturate easily on high flow nasal cannula. Remains on antibiotics, bronchodilators, and steroids. Remains quite ill and marginal, however the patient is to be reintubated again, I would strongly recommend tracheostomy and PEG tube placement. Patient remains full code according to the nurses, and this was requested by her daughter who is her legal guardian. CBC is relatively normal. Electrolytes are normal bicarb is elevated as expected at 43. Renal profile remains normal. Chest x-ray shows patchy basilar infiltrates, small effusions, and upper lobe emphysematous changes. Objective - Vital Signs Vital signs: Vital Signs Temp 97.8 F 05/25/18 08:00 Pulse 73 05/25/18 11:00 Resp 14 05/25/18 11:00 BP 111/65 05/25/18 11:00 Pulse Ox 95 05/25/18 11:00 Intake & Output 05/24/18 05/25/18 05/25/18 18:59 06:59 18:59 Intake Total 843.708 230 340 Output Total 1720 1680 265 Balance -876.292 -1450 75 Weight 53 kg 52.5 kg Intake: IV 660 230 140 Magnesium Sulfate-D5w Pmx 100 100 1 gm In Dextrose/Water 1 100ml.bag @ 100 mls/hr IVPB Q1H JIE Rx#: [id number] Sodium Chloride 0.9% 1, 660 130 40 000 ml @ 10 mls/hr IV . Q24H JIE Rx#:[id number] Intake, IV Titration 33.708 Amount Propofol 1,000 mg In 33.708 Empty Bag 1 bag @ Titrate IV .Q0M JIE Rx#: [id number] Oral 200 Tube Feeding 120 Other 30 Output: Urine 1720 1680 265 Other: Voiding Method Indwelling Catheter Indwelling Catheter Indwelling Catheter - Exam Physical Exam: Revealed a 87-year-old female in no distress, remains on BiPAP. Head: Atraumatic, normocephalic. HEENT:[Neck is supple.] [No neck masses.] [No thyromegaly.] [No JVD.] Chest: [Diminished breath sound bilaterally, rhonchi and wheezes noted bilaterally..] Cardiac Exam: [Normal S1 and S2, no S3 gallop, no murmur.] Abdomen: [Soft, nontender, no megaly, no rebound, no guarding, normal bowel sounds.] Extremities: [No clubbing, no edema, no cyanosis.] Neurological Exam: [No focal neurologic deficit. Lymphatics: No lymphadenopathy. Psychiatric: Normal, affect and mental status examination. Skin: No rashes.] - Labs CBC & Chem 7: 05/25/18 04:43 05/25/18 04:43 Labs: Abnormal Lab Results - Last 24 Hours (Table) 05/22/18 05/24/18 05/24/18 Range/Units 13:07 12:14 12:52 RBC (3.80-5.40) m/uL Lymphocytes # (1.0-4.8) k/uL ABG pCO2 102 H* 65 H (35-45) mmHg ABG HCO3 40 H* 39 H (21-25) mmol/L ABG Total CO2 41 H (19-24) mmol/L ABG O2 Saturation 97.4 H (94-97) % Chloride (98-107) mmol/L Carbon Dioxide (22-30) mmol/L BUN (7-17) mg/dL Glucose (74-99) mg/dL POC Glucose (mg/dL) 150 H (75-99) mg/dL 05/24/18 05/24/18 05/25/18 Range/Units 18:24 23:37 04:43 RBC 3.66 L (3.80-5.40) m/uL Lymphocytes # 0.3 L (1.0-4.8) k/uL ABG pCO2 (35-45) mmHg ABG HCO3 (21-25) mmol/L ABG Total CO2 (19-24) mmol/L ABG O2 Saturation (94-97) % Chloride (98-107) mmol/L Carbon Dioxide (22-30) mmol/L BUN (7-17) mg/dL Glucose (74-99) mg/dL POC Glucose (mg/dL) 116 H 108 H (75-99) mg/dL 05/25/18 05/25/18 Range/Units 04:43 05:47 RBC (3.80-5.40) m/uL Lymphocytes # (1.0-4.8) k/uL ABG pCO2 (35-45) mmHg ABG HCO3 (21-25) mmol/L ABG Total CO2 (19-24) mmol/L ABG O2 Saturation (94-97) % Chloride 91 L (98-107) mmol/L Carbon Dioxide 43 H* (22-30) mmol/L BUN 25 H (7-17) mg/dL Glucose 122 H (74-99) mg/dL POC Glucose (mg/dL) 114 H (75-99) mg/dL Microbiology - Last 24 Hours (Table) 05/22/18 17:58 Blood Culture - Preliminary Blood No Growth after 48 hours 05/22/18 16:47 Blood Culture - Preliminary Blood No Growth after 48 hours 05/22/18 15:34 Gram Stain - Final Sputum Sputum Culture - Final Assessment and Plan Assessment: Impression: 1 acute hypoxic and hypercapnic respiratory failure secondary to acute exacerbation of COPD and bilateral community-acquired pneumonia. 2 advanced COPD, FEV1 of 39% at best. 3 history of aortic stenosis, and mitral regurgitation. 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 Recommendation: Continue BiPAP, continue IV fluid at KVO, continue Lasix, continue systemic steroids and empiric antibiotics/Levaquin continue GI and DVT prophylaxis. We'll continue to monitor in the ICU. However if the patient fails BiPAP, and if reintubated, I would strongly recommend at that point arrangements for PEG tube placement and tracheostomy. We'll continue to follow. Time with Patient: Less than 30
[2018-05-25] MEDS: INSULIN ASPART 100 UNIT/ML 1 ML 10 ML VIAL SQ SCH ×4 (12:21→20:56)
[2018-05-25] MEDS: MULTIVITAMINS, THERA 1 EACH TAB PO SCH (12:22)
[2018-05-25 12:46] LABS: Glucose,Whole Blood 162 mg/dL (75-99)
--- NOTE | 2018-05-25 16:47 | P.PN ---
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 On arrival [place] and she was unresponsive and was intubated. Initial analysis showed the patient to be tachycardic. She was found to have a white blood cell count of 17.8 and hemoglobin 12.3. She was also found to have slightly elevated BUN/creatinine 21. Her urinalysis was negative. Troponin was negative. BNP was 464. Lactic acid was 1.6. An influenza A was negative. She underwent a CT head which showed no acute process, CT abdomen and pelvis that showed no acute intra- abdominal process but possible left lower lobe pneumonia. Chest x-ray was negative. She was given IV fluid and doxycycline. Arrangements were made for transfer here. On arrival here an ABG was performed which showed a pH of 7.2 and a pCO2 of 110. Chest x-ray showed ET tube in good position with possible left sided and right lower lobe infiltrate. Repeat ABG showed continue hypercapnia on vent adjustments were made. Chest x-ray showed possible infiltrate and antibiotics were broadened to Levaquin. She was started on steroids, bronchodilators, and antibiotics. Sputum culture was obtained and shows normal respiratory terry. She was subsequently admitted to the ICU. Her PH and CO2 improved on the vent. She was maintained on the aforementioned treatment. She was successfully extubated BiPAP therapy on 05/24. The night after extubation she did have some confusion and momentarily became hypoxic. Patient seen and examined at bedside. She denies any shortness of breath that she has visible sternal retractions. No chest pain. States her appetite is good. Denies feeling fatigued. Daughter present at bedside and all questions answered. Objective - Vital Signs Vital signs: Vital Signs Temp 97.2 F L 05/25/18 12:00 Pulse 76 05/25/18 16:30 Resp 18 05/25/18 16:30 BP 126/70 05/25/18 16:30 Pulse Ox 96 05/25/18 16:30 Intake & Output 05/24/18 05/25/18 05/25/18 18:59 06:59 18:59 Intake Total 843.708 230 390 Output Total 1720 1680 415 Balance -876.292 -1450 -25 Weight 53 kg 52.5 kg Intake: IV 660 230 190 Magnesium Sulfate-D5w Pmx 100 100 1 gm In Dextrose/Water 1 100ml.bag @ 100 mls/hr IVPB Q1H JIE Rx#: [id number] Sodium Chloride 0.9% 1, 660 130 90 000 ml @ 10 mls/hr IV . Q24H JIE Rx#:[id number] Intake, IV Titration 33.708 Amount Propofol 1,000 mg In 33.708 Empty Bag 1 bag @ Titrate IV .Q0M JIE Rx#: [id number] Oral 200 Tube Feeding 120 Other 30 Output: Urine 1720 1680 415 Other: Voiding Method Indwelling Catheter Indwelling Catheter Indwelling Catheter - Exam General: mild distress, ill-appearing, appears at stated age Derm: warm, dry Head: atraumatic, normocephalic, symmetric Eyes: EOMI, no lid lag, anicteric sclera Mouth: no lip lesion, mucus membranes moist Neck: Supple, trachea midline Cardiovascular: S1S2 reg, no murmur, positive posterior tibial pulse bilateral, Lungs: Decreased breath sounds bilateral, no rhonchi, no rales ,+ accessory muscle use, Abdominal: soft, nontender to palpation, no guarding, no appreciable organomegaly Ext: no gross muscle atrophy, trace edema left lower extremity, no contractures Neuro: Moving all 4 extremities independently, following commands Psych: Awake, alert, and cooperative - Labs CBC & Chem 7: 05/25/18 04:43 05/25/18 04:43 Labs: Abnormal Lab Results - Last 24 Hours (Table) 05/22/18 05/24/18 05/24/18 Range/Units 13:07 18:24 23:37 RBC (3.80-5.40) m/uL Lymphocytes # (1.0-4.8) k/uL ABG pCO2 102 H* (35-45) mmHg ABG HCO3 40 H* (21-25) mmol/L Chloride (98-107) mmol/L Carbon Dioxide (22-30) mmol/L BUN (7-17) mg/dL Glucose (74-99) mg/dL POC Glucose (mg/dL) 116 H 108 H (75-99) mg/dL 1005/25/18 05/25/18 Range/Units 04:43 04:43 05:47 RBC 3.66 L (3.80-5.40) m/uL Lymphocytes # 0.3 L (1.0-4.8) k/uL ABG pCO2 (35-45) mmHg ABG HCO3 (21-25) mmol/L Chloride 91 L (98-107) mmol/L Carbon Dioxide 43 H* (22-30) mmol/L BUN 25 H (7-17) mg/dL Glucose 122 H (74-99) mg/dL POC Glucose (mg/dL) 114 H (75-99) mg/dL 05/25/18 Range/Units 12:07 RBC (3.80-5.40) m/uL Lymphocytes # (1.0-4.8) k/uL ABG pCO2 (35-45) mmHg ABG HCO3 (21-25) mmol/L Chloride (98-107) mmol/L Carbon Dioxide (22-30) mmol/L BUN (7-17) mg/dL Glucose (74-99) mg/dL POC Glucose (mg/dL) 162 H (75-99) mg/dL Microbiology - Last 24 Hours (Table) 05/22/18 17:58 Blood Culture - Preliminary Blood No Growth after 48 hours 05/22/18 16:47 Blood Culture - Preliminary Blood No Growth after 48 hours Assessment and Plan Assessment: CAD acquired pneumonia, possible gram-negative -Levaquin D # 4/5 -Legionella urinary antigen negative, sputum culture with normal terry -follow CXR Acute exacerbation of COPD stage 3/4 with moderate pulmonary HTN -Bronchodilators -Steroids -Pulmonary hygiene -Pulmonary/critical care recommendations appreciated Acute on chronic hypoxic hypercapnic respiratory failure -Treatment as above -Vent management per pulmonary HTN -resume Norvasc and Imdur, continue to hold lopresor - follow BP Dyslipidemia -Statin ASCAD - ASA, statin GERD - IV pepcid DVT prophylaxis: Lovenox Discussed with: patient, family, nursing Anticipated discharge date: 3-[address]: SNF VS home with home health A total of 35 minutes of time was spent on this complex patient.
[2018-05-25 17:12] LABS: Glucose,Whole Blood 153 mg/dL (75-99)
[2018-05-25] MEDS: LEVOFLOXACIN 750MG-D5W PMX 750 MG in DEXTROSE/WATER 1 150ML.BAG IVPB SCH (17:56)
[2018-05-25] MEDS: SODIUM CHLORIDE 0.9% 1,000 ML IV SCH (20:56)
[2018-05-25] MEDS: ATORVASTATIN 20 MG TAB PO SCH (20:56)
[2018-05-25 21:03] LABS: Glucose,Whole Blood 180 mg/dL (75-99)
[2018-05-26] MEDS: methylPREDNISolone SOD SUCCI 125 MG/2 ML VIAL IV SCH (05:25)
[2018-05-26 06:08] LABS: Blood Urea Nitrogen 26 mg/dL (7-17); Calcium 8.7 mg/dL (8.4-10.2); Glucose 123 mg/dL (74-99); Magnesium 2.3 mg/dL (1.6-2.3); Potassium 4.2 mmol/L (3.5-5.1); Sodium 138 mmol/L (137-145)
[2018-05-26 06:09] LABS: Chloride 91 mmol/L (98-107)
[2018-05-26 06:16] LABS: Anion Gap 3 mmol/L
[2018-05-26 06:21] LABS: Carbon Dioxide 44 mmol/L (22-30)
[2018-05-26 06:44] LABS: Basophils % (A) 0 %; Eosinophils % (A) 0 %; HCT 35.2 % (34.0-46.0); HGB 11.3 gm/dL (11.4-16.0); Lymphocytes # (A) 0.4 k/uL (1.0-4.8); Lymphocytes % (A) 4 %; MCH 30.9 pg (25.0-35.0); MCHC 32.1 g/dL (31.0-37.0); MCV 96.2 fL (80.0-100.0); Mean Platelet Volume 7.6; Monocytes # (A) 0.5 k/uL (0-1.0); Monocytes % (A) 5 %; Neutrophils # (A) 7.7 k/uL (1.3-7.7); Neutrophils % (A) 89 %; Platelet Count 267 k/uL (150-450); RBC 3.66 m/uL (3.80-5.40); RDW 13.1 % (11.5-15.5); WBC 8.7 k/uL (3.8-10.6)
[2018-05-26 07:43] LABS: Glucose,Whole Blood 133 mg/dL (75-99)
[2018-05-26] MEDS: IPRATROPIUM-ALBUTEROL 3 ML NEB INHALATION SCH ×4 (08:53→19:43)
[2018-05-26] MEDS: INSULIN ASPART 100 UNIT/ML 1 ML 10 ML VIAL SQ SCH ×4 (09:00→21:59)
[2018-05-26] MEDS: ASPIRIN 81 MG PO SCH (09:17)
[2018-05-26] MEDS: amLODIPine 10 MG TAB PO SCH (09:17)
[2018-05-26] MEDS: DOCUSATE 100 MG CAP PO SCH ×2 (09:18→20:45)
[2018-05-26] MEDS: ENOXAPARIN 40 MG/0.4 ML SYRINGE SQ SCH (09:18)
[2018-05-26] MEDS: CYANOCOBALAMIN 500 MCG TAB PO SCH (09:18)
[2018-05-26] MEDS: FAMOTIDINE 20 MG/2 ML VIAL IV SCH (09:19)
[2018-05-26] MEDS: ISOSORBIDE MONONITRATE ER 60 MG TAB.ER.24H PO SCH (09:21)
[2018-05-26 10:52] VITALS: BMI 22.8
--- NOTE | 2018-05-26 11:23 | P.PN ---
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 On arrival [facility] she was unresponsive and was intubated. Initial analysis showed the patient to be tachycardic. She was found to have a white blood cell count of 17.8 and hemoglobin 12.3. She was also found to have slightly elevated BUN/creatinine 21. Her urinalysis was negative. Troponin was negative. BNP was 464. Lactic acid was 1.6. An influenza A was negative. She underwent a CT head which showed no acute process, CT abdomen and pelvis that showed no acute intra- abdominal process but possible left lower lobe pneumonia. Chest x-ray was negative. She was given IV fluid and doxycycline. Arrangements were made for transfer here. On arrival here an ABG was performed which showed a pH of 7.2 and a pCO2 of 110. Chest x-ray showed ET tube in good position with possible left sided and right lower lobe infiltrate. Repeat ABG showed continue hypercapnia on vent adjustments were made. Chest x-ray showed possible infiltrate and antibiotics were broadened to Levaquin. She was started on steroids, bronchodilators, and antibiotics. Sputum culture was obtained and shows normal respiratory terry. She was subsequently admitted to the ICU. Her PH and CO2 improved on the vent. She was maintained on the aforementioned treatment. She was successfully extubated BiPAP therapy on 05/24. The night after extubation she did have some confusion and momentarily became hypoxic. 05/26: Patient was seen and examined by me today. She reports feeling better compared to yesterday. She required BiPAP overnight and currently on 4 L of oxygen. She informed me that usually at home she uses 1 L of oxygen only. She denies any shortness of breath this morning. No wheezing. Cough is improving and is intermittent. It is generally nonproductive. No acute events overnight reported by nursing staff. Objective - Vital Signs Vital signs: Vital Signs Temp 98.2 F 05/26/18 09:00 Pulse 82 05/26/18 11:00 Resp 17 05/26/18 11:00 BP 99/51 05/26/18 11:00 Pulse Ox 91 L 05/26/18 11:00 Intake & Output 05/25/18 05/26/18 05/26/18 18:59 06:59 18:59 Intake Total 770 110 50 Output Total 525 695 340 Balance 245 -585 -290 Weight 53 kg 53 kg Intake: IV 220 110 50 Magnesium Sulfate-D5w Pmx 100 1 gm In Dextrose/Water 1 100ml.bag @ 100 mls/hr IVPB Q1H JIE Rx#: [id number] Sodium Chloride 0.9% 1, 120 110 50 000 ml @ 10 mls/hr IV . Q24H JIE Rx#:[id number] Intake, IV Titration 150 Amount Levofloxacin 750Mg-D5w 150 Pmx 750 mg In Dextrose/ Water 1 150ml.bag @ 100 mls/hr IVPB Q24H JIE Rx#: [id number] Oral 400 Output: Urine 525 695 340 Other: Voiding Method Indwelling Catheter Indwelling Catheter # Voids 1 - Exam General: The patient is awake and alert, in no distress Eye: there is normal conjunctiva bilaterally. Neck: The neck is supple, there is no JVD. Cardiovascular: Normal S1-S2, no S3-S4, no murmurs. Respiratory: Lungs are diminished with no expiratory wheezing Gastrointestinal: Abdomen is soft, nontender Musculoskeletal: There is no pedal edema. Neurological:. Speech is normal. Skin: Skin is warm and dry - Labs CBC & Chem 7: 05/26/18 04:43 05/26/18 04:43 Labs: Abnormal Lab Results - Last 24 Hours (Table) 05/25/18 05/25/18 05/25/18 Range/Units 12:07 17:03 20:52 RBC (3.80-5.40) m/uL Hgb (11.4-16.0) gm/dL Lymphocytes # (1.0-4.8) k/uL Chloride (98-107) mmol/L Carbon Dioxide (22-30) mmol/L BUN (7-17) mg/dL Creatinine (0.52-1.04) mg/dL Glucose (74-99) mg/dL POC Glucose (mg/dL) 162 H 153 H 180 H (75-99) mg/dL 05/26/18 05/26/18 05/26/18 Range/Units 04:43 04:43 07:30 RBC 3.66 L (3.80-5.40) m/uL Hgb 11.3 L (11.4-16.0) gm/dL Lymphocytes # 0.4 L (1.0-4.8) k/uL Chloride 91 L (98-107) mmol/L Carbon Dioxide 44 H* (22-30) mmol/L BUN 26 H (7-17) mg/dL Creatinine 0.41 L (0.52-1.04) mg/dL Glucose 123 H (74-99) mg/dL POC Glucose (mg/dL) 133 H (75-99) mg/dL Microbiology - Last 24 Hours (Table) 05/22/18 17:58 Blood Culture - Preliminary Blood No Growth after 72 hours 05/22/18 16:47 Blood Culture - Preliminary Blood No Growth after 72 hours Assessment and Plan Assessment: 1. Acute on chronic hypoxic respiratory failure requiring intubation and mechanical ventilation. Successfully extubated on 05/24. Now requiring BiPAP intermittently. Pulmonology following appreciate recommendations. 2. Acute COPD exacerbation. Continue bronchodilators scheduled. Switch IV steroids to oral prednisone. Pulmonary hygiene. 3. Community-acquired pneumonia currently on Levaquin day #12/02. Legionella urinary antigen was negative. Sputum and blood culture negative to date. 4. Acute on chronic hypercapnic respiratory failure 5. Essential hypertension: Blood pressure within acceptable range 6. Hyperlipidemia on Lipitor 7. Contraction alkalosis. Avoid diuretics at this time. 8. GI and DVT prophylaxis Today, I reviewed her medication list and lab work results. Continue current regimen. Wean off O2 as tolerated for O2 sats greater than 88%. Repeat lab work in the morning. Appreciate call center support consultant's recommendations.
[2018-05-26] MEDS: CALCIUM CARBONATE 500 MG CHEWABLE PO SCH (11:26)
[2018-05-26] MEDS: FLUTICASONE 50MCG/SPRAY NASAL 16GM EA NOSTRIL SCH (11:26)
[2018-05-26] MEDS: CHOLECALCIFEROL 400 UNIT TAB PO SCH (11:26)
[2018-05-26 11:40] LABS: Glucose,Whole Blood 117 mg/dL (75-99)
--- NOTE | 2018-05-26 11:59 | P.PN ---
Subjective Progress Note Date: 05/26/18 Principal diagnosis: Acute hypoxic and hypercapnic respiratory failure secondary to COPD exacerbation and bilateral lower lobe pneumonia. This is an 87-year-old female patient, with known history of advanced COPDEV1 of 39% of predicted, diffusion capacity of 32% of predicted, whereas been followed up in our office and the patient was brought into the hospital today because of worsening shortness of breath. Apparently the patient was in a good state of health and around 2 days ago she started having cold chills and she was progressively getting more short of breath. This morning, the patient woke up at around 5 AM and she was complaining of shakingAnd worsening dyspnea and she was also noted to have diminished level of consciousness. Based on that, the patient was taken to [facility] and upon arrival she was unresponsive. She was immediately intubated. She was found to have a white cell count of 17.8. Hemoglobin was 12.3. Troponins were negative. BNP level was 464. Lactic acid level was 1.6. Influenza screen was negative. CAT scan of the chest and abdomen showed no acute abnormalities. There was an indication of a possible bibasilar pulmonary infiltrates/pneumonia more so on the left lung base. Based on this, the patient was placed on mechanical ventilator, and she was transferred to [facility] for further evaluation I saw this patient in the ED. She was sedated with Versed drip 1 mg an hour. She was on a mechanical ventilator at the rate of 20, tidal volume of 300, FiO2 of 50% and a PEEP of 5. I increased the rate up to 26. I also increased the flow up to 60. This gave the patient an I:E ratio of 1:4. The patient's blood gases that were done prior to this and change showed a pH of 7.25 with a pCO2 of 92 and pO2 of 74. This was done and FiO2 of 40%. Currently she is on bronchodilators for she is on systemic steroids. He is on IV Solu-Medrol 60 mg every 6 hours. She is also on Levaquin as an empiric antibiotic coverage. No reported aspiration. No reported angina. No reported chest pain. She is known to have previous history of coronary artery disease and she is done coronary artery bypass surgery back in 1993. She has bronchospastic and wheezy. Peak air pressure on the mechanical ventilator 36. Static pressures around 17. ET tube is in a good location at the level of the aortic arch. 3 cm above the cornel. No significant orotracheal secretions. On 05/25/2018, patient remains on BiPAP, IPAP of 12, EPAP of 5, FiO2 is down to 40%, patient's saturations are in the 90s. She seems to be comfortable on BiPAP , however she does desaturate easily on high flow nasal cannula. Remains on antibiotics, bronchodilators, and steroids. Remains quite ill and marginal, however the patient is to be reintubated again, I would strongly recommend tracheostomy and PEG tube placement. Patient remains full code according to the nurses, and this was requested by her daughter who is her legal guardian. CBC is relatively normal. Electrolytes are normal bicarb is elevated as expected at 43. Renal profile remains normal. Chest x-ray shows patchy basilar infiltrates, small effusions, and upper lobe emphysematous changes. Reevaluated today on 05/26/2018, presently on nasal cannula, saturating well, I cut down her FiO2 to 4 L, saturation was in the mid 90s. Patient seems to be comfortable, not on BiPAP presently, but BiPAP remains at bedside. Patient denies any shortness of breath, no cough, no wheezing. All her meds and labs were reviewed, bicarb is 44 as expected. No chest x-ray was done as it was felt to be not necessary. Objective - Vital Signs Vital signs: Vital Signs Temp 98.2 F 05/26/18 09:00 Pulse 82 05/26/18 11:00 Resp 17 05/26/18 11:00 BP 99/51 05/26/18 11:00 Pulse Ox 91 L 05/26/18 11:00 Intake & Output 05/25/18 05/26/18 05/26/18 18:59 06:59 18:59 Intake Total 770 110 50 Output Total 525 695 340 Balance 245 -585 -290 Weight 53 kg 53 kg Intake: IV 220 110 50 Magnesium Sulfate-D5w Pmx 100 1 gm In Dextrose/Water 1 100ml.bag @ 100 mls/hr IVPB Q1H [facility] Rx#: [id number] Sodium Chloride 0.9% 1, 120 110 50 000 ml @ 10 mls/hr IV . Q24H [facility] Rx#:[id number] Intake, IV Titration 150 Amount Levofloxacin 750Mg-D5w 150 Pmx 750 mg In Dextrose/ Water 1 150ml.bag @ 100 mls/hr IVPB Q24H [facility] Rx#: [id number] Oral 400 Output: Urine 525 695 340 Other: Voiding Method Indwelling Catheter Indwelling Catheter Indwelling Catheter # Voids 1 - Exam Physical Exam: Revealed a 87-year-old female in no distress, on 4 L nasal cannula. Head: Atraumatic, normocephalic. HEENT:[Neck is supple.] [No neck masses.] [No thyromegaly.] [No JVD.] Chest: [Diminished breath sound bilaterally, no rhonchi, no wheezes noted] Cardiac Exam: [Normal S1 and S2, no S3 gallop, no murmur.] Abdomen: [Soft, nontender, no megaly, no rebound, no guarding, normal bowel sounds.] Extremities: [No clubbing, no edema, no cyanosis.] Neurological Exam: [No focal neurologic deficit. Lymphatics: No lymphadenopathy. Psychiatric: Normal, affect and mental status examination. Skin: No rashes.] - Labs CBC & Chem 7: 05/26/18 04:43 05/26/18 04:43 Labs: Abnormal Lab Results - Last 24 Hours (Table) 05/25/18 05/25/18 05/25/18 Range/Units 12:07 17:03 20:52 RBC (3.80-5.40) m/uL Hgb (11.4-16.0) gm/dL Lymphocytes # (1.0-4.8) k/uL Chloride (98-107) mmol/L Carbon Dioxide (22-30) mmol/L BUN (7-17) mg/dL Creatinine (0.52-1.04) mg/dL Glucose (74-99) mg/dL POC Glucose (mg/dL) 162 H 153 H 180 H (75-99) mg/dL 05/26/18 05/26/18 05/26/18 Range/Units 04:43 04:43 07:30 RBC 3.66 L (3.80-5.40) m/uL Hgb 11.3 L (11.4-16.0) gm/dL Lymphocytes # 0.4 L (1.0-4.8) k/uL Chloride 91 L (98-107) mmol/L Carbon Dioxide 44 H* (22-30) mmol/L BUN 26 H (7-17) mg/dL Creatinine 0.41 L (0.52-1.04) mg/dL Glucose 123 H (74-99) mg/dL POC Glucose (mg/dL) 133 H (75-99) mg/dL 05/26/18 Range/Units 11:28 RBC (3.80-5.40) m/uL Hgb (11.4-16.0) gm/dL Lymphocytes # (1.0-4.8) k/uL Chloride (98-107) mmol/L Carbon Dioxide (22-30) mmol/L BUN (7-17) mg/dL Creatinine (0.52-1.04) mg/dL Glucose (74-99) mg/dL POC Glucose (mg/dL) 117 H (75-99) mg/dL Microbiology - Last 24 Hours (Table) 05/22/18 17:58 Blood Culture - Preliminary Blood No Growth after 72 hours 05/22/18 16:47 Blood Culture - Preliminary Blood No Growth after 72 hours Assessment and Plan Assessment: Impression: 1 acute hypoxic and hypercapnic respiratory failure secondary to acute exacerbation of COPD and bilateral community-acquired pneumonia. 2 advanced COPD, FEV1 of 39% at best. 3 history of aortic stenosis, and mitral regurgitation. 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 Recommendation: Continue present supportive care measures including antibiotics , bronchodilators, steroids, considering the significant improvement over the last 24 hours, I plan to transfer the patient out of the ICU to a regular medical floor. Will have to keep BiPAP at bedside. But we'll mostly use nasal cannula for now. Prognosis remains guarded considering the severity of her underlying COPD. Time with Patient: Less than 30
[2018-05-26] MEDS: MULTIVITAMINS, THERA 1 EACH TAB PO SCH (13:41)
[2018-05-26 16:36] LABS: Glucose,Whole Blood 115 mg/dL (75-99)
[2018-05-26] MEDS: SODIUM CHLORIDE 0.9% 1,000 ML IV SCH (17:50)
[2018-05-26] MEDS: CHLORHEXIDINE GLUCONATE 15 ML CUP MUCOUS MEM SCH (17:51)
[2018-05-26] MEDS: LEVOFLOXACIN 750 MG TAB PO SCH (20:44)
[2018-05-26] MEDS: FAMOTIDINE 20 MG TAB PO SCH (20:45)
[2018-05-26] MEDS: ATORVASTATIN 20 MG TAB PO SCH (20:45)
[2018-05-26 21:00] LABS: Glucose,Whole Blood 106 mg/dL (75-99)
[2018-05-27] MEDS: IPRATROPIUM-ALBUTEROL 3 ML NEB INHALATION SCH ×4 (05:40→19:10)
[2018-05-27 07:26] LABS: Glucose,Whole Blood 94 mg/dL (75-99)
[2018-05-27] MEDS: INSULIN ASPART 100 UNIT/ML 1 ML 10 ML VIAL SQ SCH ×4 (07:45→21:28)
[2018-05-27] MEDS: ENOXAPARIN 40 MG/0.4 ML SYRINGE SQ SCH (08:29)
[2018-05-27] MEDS: MULTIVITAMINS, THERA 1 EACH TAB PO SCH (08:30)
[2018-05-27] MEDS: DOCUSATE 100 MG CAP PO SCH ×2 (08:30→21:25)
[2018-05-27] MEDS: CHOLECALCIFEROL 400 UNIT TAB PO SCH (08:30)
[2018-05-27] MEDS: FAMOTIDINE 20 MG TAB PO SCH (08:30)
[2018-05-27] MEDS: ASPIRIN 81 MG PO SCH (08:30)
[2018-05-27] MEDS: CALCIUM CARBONATE 500 MG CHEWABLE PO SCH (08:30)
[2018-05-27] MEDS: predniSONE 20 MG TAB PO SCH (08:30)
[2018-05-27] MEDS: ISOSORBIDE MONONITRATE ER 60 MG TAB.ER.24H PO SCH (08:30)
[2018-05-27] MEDS: amLODIPine 10 MG TAB PO SCH (08:30)
[2018-05-27] MEDS: FLUTICASONE 50MCG/SPRAY NASAL 16GM EA NOSTRIL SCH (08:31)
[2018-05-27] MEDS: CYANOCOBALAMIN 500 MCG TAB PO SCH (08:33)
--- NOTE | 2018-05-27 09:36 | P.PN ---
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 On arrival [facility] she was unresponsive and was intubated. Initial analysis showed the patient to be tachycardic. She was found to have a white blood cell count of 17.8 and hemoglobin 12.3. She was also found to have slightly elevated BUN/creatinine 21. Her urinalysis was negative. Troponin was negative. BNP was 464. Lactic acid was 1.6. An influenza A was negative. She underwent a CT head which showed no acute process, CT abdomen and pelvis that showed no acute intra- abdominal process but possible left lower lobe pneumonia. Chest x-ray was negative. She was given IV fluid and doxycycline. Arrangements were made for transfer here. On arrival here an ABG was performed which showed a pH of 7.2 and a pCO2 of 110. Chest x-ray showed ET tube in good position with possible left sided and right lower lobe infiltrate. Repeat ABG showed continue hypercapnia on vent adjustments were made. Chest x-ray showed possible infiltrate and antibiotics were broadened to Levaquin. She was started on steroids, bronchodilators, and antibiotics. Sputum culture was obtained and shows normal respiratory terry. She was subsequently admitted to the ICU. Her PH and CO2 improved on the vent. She was maintained on the aforementioned treatment. She was successfully extubated BiPAP therapy on 05/24. The night after extubation she did have some confusion and momentarily became hypoxic. 05/26: Patient was seen and examined by me today. She reports feeling better compared to yesterday. She required BiPAP overnight and currently on 4 L of oxygen. She informed me that usually at home she uses 1 L of oxygen only. She denies any shortness of breath this morning. No wheezing. Cough is improving and is intermittent. It is generally nonproductive. No acute events overnight reported by nursing staff. 05/27 patient is doing fairly well today. She denies any shortness of breath. She did not require BiPAP last night. She is still on 5 L of oxygen. She did not get out of bed as of yet. Her daughter is at bedside. Objective - Vital Signs Vital signs: Vital Signs Temp 97.8 F 05/27/18 05:45 Pulse 85 05/27/18 05:51 Resp 20 05/27/18 05:45 BP 119/65 05/27/18 05:45 Pulse Ox 97 05/27/18 05:45 Intake & Output 05/26/18 05/27/18 05/27/18 18:59 06:59 18:59 Intake Total 70 500 Output Total 460 Balance -390 500 Weight 53 kg 53 kg Intake: IV 70 Sodium Chloride 0.9% 1, 70 000 ml @ 10 mls/hr IV . Q24H [facility] Rx#:[id number] Oral 500 Output: Urine 460 Other: Voiding Method Incontinent Incontinent # Voids 3 - Exam General: The patient is awake and alert, in no distress Eye: there is normal conjunctiva bilaterally. Neck: The neck is supple, there is no JVD. Cardiovascular: Normal S1-S2, no S3-S4, no murmurs. Respiratory: Lungs are diminished with no expiratory wheezing Gastrointestinal: Abdomen is soft, nontender Musculoskeletal: There is no pedal edema. Neurological:. Speech is normal. Skin: Skin is warm and dry - Labs CBC & Chem 7: 05/26/18 04:43 05/26/18 04:43 Labs: Abnormal Lab Results - Last 24 Hours (Table) 05/26/18 05/26/18 05/26/18 Range/Units 11:28 16:34 20:48 POC Glucose (mg/dL) 117 H 115 H 106 H (75-99) mg/dL Microbiology - Last 24 Hours (Table) 05/22/18 17:58 Blood Culture - Preliminary Blood No Growth after 96 hours 05/22/18 16:47 Blood Culture - Preliminary Blood No Growth after 96 hours Assessment and Plan Assessment: 1. Acute on chronic hypoxic respiratory failure requiring intubation and mechanical ventilation. Successfully extubated on 05/24. Now requiring BiPAP intermittently. Pulmonology following appreciate recommendations. 2. Acute COPD exacerbation. Continue bronchodilators scheduled. Switched IV steroids to oral prednisone. Pulmonary hygiene. 3. Community-acquired pneumonia currently on Levaquin day #01/02. Legionella urinary antigen was negative. Sputum and blood culture negative to date. 4. Acute on chronic hypercapnic respiratory failure: Usually on 1 L of oxygen at home 5. Essential hypertension: Blood pressure within acceptable range 6. Hyperlipidemia on Lipitor 7. Contraction alkalosis. Avoid diuretics at this time. 8. GI and DVT prophylaxis Today, I reviewed her medication list and lab work results. Continue current regimen. Wean off O2 as tolerated for O2 sats greater than 88%. Repeat lab work in the morning. Appreciate healthcare economics consultant's recommendations. PT/OT evaluation
--- NOTE | 2018-05-27 09:44 | P.PN ---
Subjective Progress Note Date: 05/27/18 Principal diagnosis: Acute hypoxic and hypercapnic respiratory failure secondary to an acute exacerbation of chronic obstructive pulmonary disease and bilateral lower lobe pneumonia. This is an 87-year-old female patient, with known history of advanced COPDEV1 of 39% of predicted, diffusion capacity of 32% of predicted, whereas been followed up in our office and the patient was brought into the hospital today because of worsening shortness of breath. Apparently the patient was in a good state of health and around 2 days ago she started having cold chills and she was progressively getting more short of breath. This morning, the patient woke up at around 5 AM and she was complaining of shakingAnd worsening dyspnea and she was also noted to have diminished level of consciousness. Based on that, the patient was taken to [facility] and upon arrival she was unresponsive. She was immediately intubated. She was found to have a white cell count of 17.8. Hemoglobin was 12.3. Troponins were negative. BNP level was 464. Lactic acid level was 1.6. Influenza screen was negative. CAT scan of the chest and abdomen showed no acute abnormalities. There was an indication of a possible bibasilar pulmonary infiltrates/pneumonia more so on the left lung base. Based on this, the patient was placed on mechanical ventilator, and she was transferred to [facility] for further evaluation I saw this patient in the ED. She was sedated with Versed drip 1 mg an hour. She was on a mechanical ventilator at the rate of 20, tidal volume of 300, FiO2 of 50% and a PEEP of 5. I increased the rate up to 26. I also increased the flow up to 60. This gave the patient an I:E ratio of 1:4. The patient's blood gases that were done prior to this and change showed a pH of 7.25 with a pCO2 of 92 and pO2 of 74. This was done and FiO2 of 40%. Currently she is on bronchodilators for she is on systemic steroids. He is on IV Solu-Medrol 60 mg every 6 hours. She is also on Levaquin as an empiric antibiotic coverage. No reported aspiration. No reported angina. No reported chest pain. She is known to have previous history of coronary artery disease and she is done coronary artery bypass surgery back in 1993. She has bronchospastic and wheezy. Peak air pressure on the mechanical ventilator 36. Static pressures around 17. ET tube is in a good location at the level of the aortic arch. 3 cm above the cornel. No significant orotracheal secretions. On 05/25/2018, patient remains on BiPAP, IPAP of 12, EPAP of 5, FiO2 is down to 40%, patient's saturations are in the 90s. She seems to be comfortable on BiPAP , however she does desaturate easily on high flow nasal cannula. Remains on antibiotics, bronchodilators, and steroids. Remains quite ill and marginal, however the patient is to be reintubated again, I would strongly recommend tracheostomy and PEG tube placement. Patient remains full code according to the nurses, and this was requested by her daughter who is her legal guardian. CBC is relatively normal. Electrolytes are normal bicarb is elevated as expected at 43. Renal profile remains normal. Chest x-ray shows patchy basilar infiltrates, small effusions, and upper lobe emphysematous changes. Reevaluated today on 05/26/2018, presently on nasal cannula, saturating well, I cut down her FiO2 to 4 L, saturation was in the mid 90s. Patient seems to be comfortable, not on BiPAP presently, but BiPAP remains at bedside. Patient denies any shortness of breath, no cough, no wheezing. All her meds and labs were reviewed, bicarb is 44 as expected. No chest x-ray was done as it was felt to be not necessary. Patient is seen again today 05/27/2018 in follow-up on the regular medical floor. She is currently sitting up in bed. She is awake and alert in no acute distress. She denies any worsening shortness of breath, cough or congestion. She is maintaining good O2 saturations up to 100% on 5 L/m per nasal cannula. She's been afebrile. Hemodynamically stable. Blood and sputum cultures reveal no growth. No new labs today. She is currently on bronchodilators, a prednisone taper and Levaquin. Objective - Vital Signs Vital signs: Vital Signs Temp 97.8 F 05/27/18 05:45 Pulse 85 05/27/18 05:51 Resp 20 05/27/18 05:45 BP 119/65 05/27/18 05:45 Pulse Ox 97 05/27/18 05:45 Intake & Output 05/26/18 05/27/18 05/27/18 18:59 06:59 18:59 Intake Total 70 500 Output Total 460 Balance -390 500 Weight 53 kg 53 kg Intake: IV 70 Sodium Chloride 0.9% 1, 70 000 ml @ 10 mls/hr IV . Q24H [facility] Rx#:[id number] Oral 500 Output: Urine 460 Other: Voiding Method Incontinent Incontinent # Voids 3 - Labs CBC & Chem 7: 05/26/18 04:43 05/26/18 04:43 Labs: Abnormal Lab Results - Last 24 Hours (Table) 05/26/18 05/26/18 05/26/18 Range/Units 11:28 16:34 20:48 POC Glucose (mg/dL) 117 H 115 H 106 H (75-99) mg/dL Microbiology - Last 24 Hours (Table) 05/22/18 17:58 Blood Culture - Preliminary Blood No Growth after 96 hours 05/22/18 16:47 Blood Culture - Preliminary Blood No Growth after 96 hours
[2018-05-27 10:35] LABS: Basophils % (A) 0 %; Eosinophils % (A) 0 %; HCT 34.9 % (34.0-46.0); HGB 11.2 gm/dL (11.4-16.0); Hypochromasia Slight; Lymphocytes # (A) 1.3 k/uL (1.0-4.8); Lymphocytes % (A) 14 %; MCH 31.3 pg (25.0-35.0); MCV 97.6 fL (80.0-100.0); Monocytes # (A) 0.6 k/uL (0-1.0); Monocytes % (A) 6 %; Neutrophils % (A) 78 %; Platelet Count 274 k/uL (150-450); RBC 3.58 m/uL (3.80-5.40)
[2018-05-27 10:44] LABS: Blood Urea Nitrogen 20 mg/dL (7-17); Calcium 8.5 mg/dL (8.4-10.2); Chloride 88 mmol/L (98-107); Glucose 120 mg/dL (74-99); Magnesium 1.9 mg/dL (1.6-2.3); Phosphorus 3.6 mg/dL (2.5-4.5); Potassium 3.6 mmol/L (3.5-5.1); Sodium 138 mmol/L (137-145)
[2018-05-27 10:53] LABS: Anion Gap 2 mmol/L
[2018-05-27 11:05] LABS: Carbon Dioxide 48 mmol/L (22-30)
[2018-05-27 12:34] LABS: Glucose,Whole Blood 103 mg/dL (75-99)
[2018-05-27 17:22] LABS: Glucose,Whole Blood 147 mg/dL (75-99)
[2018-05-27] MEDS: LEVOFLOXACIN 750 MG TAB PO SCH (17:51)
[2018-05-27] MEDS: SODIUM CHLORIDE 0.9% 1,000 ML IV SCH (17:52)
[2018-05-27 21:06] LABS: Glucose,Whole Blood 164 mg/dL (75-99)
[2018-05-27] MEDS: ATORVASTATIN 20 MG TAB PO SCH (21:25)
[2018-05-28] MEDS: FAMOTIDINE 20 MG TAB PO SCH ×3 (00:43→20:19)
[2018-05-28 07:38] LABS: Glucose,Whole Blood 87 mg/dL (75-99)
[2018-05-28] MEDS: INSULIN ASPART 100 UNIT/ML 1 ML 10 ML VIAL SQ SCH ×4 (07:52→22:21)
--- NOTE | 2018-05-28 07:57 | XR ---
EXAMINATION TYPE: XR chest 1V portable DATE OF EXAM: 05/28/2018 COMPARISON: Prior chest x-ray 05/25/2018 HISTORY: Pneumonia TECHNIQUE: Single frontal view of the chest is obtained. FINDINGS: Patchy increased density present in the left upper lobe, lower lobes. Patient is post medi an sternotomy and rotated. No pneumothorax or sizable effusion. Heart size likely stable. IMPRESSION: Correlate for pneumonia, congestive heart failure. Rotated exam, follow-up recommended.
[2018-05-28] MEDS: IPRATROPIUM-ALBUTEROL 3 ML NEB INHALATION SCH ×4 (09:11→20:11)
[2018-05-28 09:40] LABS: Blood Urea Nitrogen 17 mg/dL (7-17); Calcium 8.4 mg/dL (8.4-10.2); Chloride 89 mmol/L (98-107); Glucose 97 mg/dL (74-99); Potassium 3.8 mmol/L (3.5-5.1); Sodium 140 mmol/L (137-145)
[2018-05-28 09:47] LABS: Anion Gap 4 mmol/L
[2018-05-28] MEDS: CHOLECALCIFEROL 400 UNIT TAB PO SCH (09:47)
[2018-05-28] MEDS: MULTIVITAMINS, THERA 1 EACH TAB PO SCH (09:47)
[2018-05-28] MEDS: ISOSORBIDE MONONITRATE ER 60 MG TAB.ER.24H PO SCH (09:47)
[2018-05-28] MEDS: amLODIPine 10 MG TAB PO SCH (09:47)
[2018-05-28] MEDS: ASPIRIN 81 MG PO SCH (09:47)
[2018-05-28] MEDS: CALCIUM CARBONATE 500 MG CHEWABLE PO SCH (09:47)
[2018-05-28] MEDS: predniSONE 20 MG TAB PO SCH (09:47)
[2018-05-28] MEDS: DOCUSATE 100 MG CAP PO SCH ×2 (09:47→20:19)
[2018-05-28] MEDS: FLUTICASONE 50MCG/SPRAY NASAL 16GM EA NOSTRIL SCH (09:48)
[2018-05-28] MEDS: ENOXAPARIN 40 MG/0.4 ML SYRINGE SQ SCH (09:48)
[2018-05-28] MEDS: CYANOCOBALAMIN 500 MCG TAB PO SCH (09:48)
[2018-05-28 09:51] LABS: Carbon Dioxide 47 mmol/L (22-30)
[2018-05-28 12:04] LABS: Glucose,Whole Blood 137 mg/dL (75-99)
--- NOTE | 2018-05-28 13:40 | P.PN ---
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 On arrival to [facility] she was unresponsive and was intubated. Initial analysis showed the patient to be tachycardic. She was found to have a white blood cell count of 17.8 and hemoglobin 12.3. She was also found to have slightly elevated BUN/creatinine. Her urinalysis was negative. Troponin was negative. BNP was 464. Lactic acid was 1.6. An influenza A was negative. She underwent a CT head which showed no acute process, CT abdomen and pelvis that showed no acute intra-abdominal process but possible left lower lobe pneumonia. Chest x-ray was negative. She was given IV fluid and doxycycline. Arrangements were made for transfer here. On arrival here an ABG was performed which showed a pH of 7.2 and a pCO2 of 110. Chest x-ray showed ET tube in good position with possible left sided and right lower lobe infiltrate. Repeat ABG showed continue hypercapnia on vent adjustments were made. Chest x-ray showed possible infiltrate and antibiotics were broadened to Levaquin. She was started on steroids, bronchodilators, and antibiotics. Sputum culture was obtained and shows normal respiratory terry. She was subsequently admitted to the ICU. Her PH and CO2 improved on the vent. She was maintained on the aforementioned treatment. She was successfully extubated to BiPAP therapy on 05/24. The night after extubation she did have some confusion and momentarily became hypoxic. She they did well on Bipap. She required bipap intermittently, but has not needed bipap since 05/26. She was still weak when working with therapy. Patient seen and examined at bedside. Wants to go home. No additional shortness of breath. No nausea, no chest pain, no constipation. Daughter Lindsay updated over the phone. Objective - Vital Signs Vital signs: Vital Signs Temp 98.7 F 05/28/18 08:44 Pulse 74 05/28/18 12:20 Resp 16 05/28/18 12:36 BP 118/58 05/28/18 08:44 Pulse Ox 91 L 05/28/18 08:44 Intake & Output 05/27/18 05/28/18 05/28/18 18:59 06:59 18:59 Other: Voiding Method Incontinent Incontinent Incontinent # Voids 3 0 # Bowel Movements 0 0 - Exam General: no distress, non toxic, appears at stated age Derm: warm, dry Head: atraumatic, normocephalic, symmetric Eyes: EOMI, no lid lag, anicteric sclera Mouth: no lip lesion, mucus membranes moist Neck: Supple, trachea midline Cardiovascular: S1S2 reg, no murmur, positive posterior tibial pulse bilateral, Lungs: Decreased breath sounds bilateral, no rhonchi, no rales ,no accessory muscle use, Abdominal: soft, nontender to palpation, no guarding, no appreciable organomegaly Ext: no gross muscle atrophy, no edema b/l lower extremities, no contractures Neuro: Moving all 4 extremities independently, following commands Psych: Awake, alert, and cooperative - Labs CBC & Chem 7: 05/27/18 09:51 05/28/18 08:34 Labs: Abnormal Lab Results - Last 24 Hours (Table) 05/27/18 05/27/18 05/28/18 Range/Units 17:11 21:04 08:34 Chloride 89 L (98-107) mmol/L Carbon Dioxide 47 H* (22-30) mmol/L Creatinine 0.46 L (0.52-1.04) mg/dL POC Glucose (mg/dL) 147 H 164 H (75-99) mg/dL 05/28/18 Range/Units 11:56 Chloride (98-107) mmol/L Carbon Dioxide (22-30) mmol/L Creatinine (0.52-1.04) mg/dL POC Glucose (mg/dL) 137 H (75-99) mg/dL Microbiology - Last 24 Hours (Table) 05/22/18 17:58 Blood Culture - Preliminary Blood No Growth after 120 hours 05/22/18 16:47 Blood Culture - Preliminary Blood No Growth after 120 hours Assessment and Plan Assessment: Community acquired pneumonia, possible gram-negative -Levaquin D # 6/7 -Legionella urinary antigen negative, sputum culture with normal terry -follow CXR, improving appears near baseline, followup in 1 week. Acute exacerbation of COPD stage 3/4 with moderate pulmonary HTN -Bronchodilators -Steroids now on prednisone -Pulmonary hygiene -Pulmonary/critical care recommendations appreciated Acute on chronic hypoxic hypercapnic respiratory failure -Treatment as above -Vent management per pulmonary HTN -Continue Norvasc and Imdur, continue to hold lopressor, plan on discharge off lopressor with known lung disease - follow BP Dyslipidemia -Statin ASCAD - ASA, statin GERD - pepcid DVT prophylaxis: Lovenox Discussed with: patient, family, nursing Anticipated discharge date: [address]: [facility] A total of 35 minutes of time was spent on this complex patient.
--- NOTE | 2018-05-28 15:12 | P.PN ---
Subjective Progress Note Date: 05/28/18 Principal diagnosis: Acute hypoxic and hypercapnic respiratory failure secondary to an acute exacerbation of chronic obstructive pulmonary disease and marcela. lower lobe pneumonia This is an 87-year-old female patient, with known history of advanced COPDEV1 of 39% of predicted, diffusion capacity of 32% of predicted, whereas been followed up in our office and the patient was brought into the hospital today because of worsening shortness of breath. Apparently the patient was in a good state of health and around 2 days ago she started having cold chills and she was progressively getting more short of breath. This morning, the patient woke up at around 5 AM and she was complaining of shakingAnd worsening dyspnea and she was also noted to have diminished level of consciousness. Based on that, the patient was taken to [facility] and upon arrival she was unresponsive. She was immediately intubated. She was found to have a white cell count of 17.8. Hemoglobin was 12.3. Troponins were negative. BNP level was 464. Lactic acid level was 1.6. Influenza screen was negative. CAT scan of the chest and abdomen showed no acute abnormalities. There was an indication of a possible bibasilar pulmonary infiltrates/pneumonia more so on the left lung base. Based on this, the patient was placed on mechanical ventilator, and she was transferred to [facility] for further evaluation I saw this patient in the ED. She was sedated with Versed drip 1 mg an hour. She was on a mechanical ventilator at the rate of 20, tidal volume of 300, FiO2 of 50% and a PEEP of 5. I increased the rate up to 26. I also increased the flow up to 60. This gave the patient an I:E ratio of 1:4. The patient's blood gases that were done prior to this and change showed a pH of 7.25 with a pCO2 of 92 and pO2 of 74. This was done and FiO2 of 40%. Currently she is on bronchodilators for she is on systemic steroids. He is on IV Solu-Medrol 60 mg every 6 hours. She is also on Levaquin as an empiric antibiotic coverage. No reported aspiration. No reported angina. No reported chest pain. She is known to have previous history of coronary artery disease and she is done coronary artery bypass surgery back in 1993. She has bronchospastic and wheezy. Peak air pressure on the mechanical ventilator 36. Static pressures around 17. ET tube is in a good location at the level of the aortic arch. 3 cm above the cornel. No significant orotracheal secretions. On 05/25/2018, patient remains on BiPAP, IPAP of 12, EPAP of 5, FiO2 is down to 40%, patient's saturations are in the 90s. She seems to be comfortable on BiPAP , however she does desaturate easily on high flow nasal cannula. Remains on antibiotics, bronchodilators, and steroids. Remains quite ill and marginal, however the patient is to be reintubated again, I would strongly recommend tracheostomy and PEG tube placement. Patient remains full code according to the nurses, and this was requested by her daughter who is her legal guardian. CBC is relatively normal. Electrolytes are normal bicarb is elevated as expected at 43. Renal profile remains normal. Chest x-ray shows patchy basilar infiltrates, small effusions, and upper lobe emphysematous changes. Reevaluated today on 05/26/2018, presently on nasal cannula, saturating well, I cut down her FiO2 to 4 L, saturation was in the mid 90s. Patient seems to be comfortable, not on BiPAP presently, but BiPAP remains at bedside. Patient denies any shortness of breath, no cough, no wheezing. All her meds and labs were reviewed, bicarb is 44 as expected. No chest x-ray was done as it was felt to be not necessary. Patient is seen again today 05/27/2018 in follow-up on the regular medical floor. She is currently sitting up in bed. She is awake and alert in no acute distress. She denies any worsening shortness of breath, cough or congestion. She is maintaining good O2 saturations up to 100% on 5 L/m per nasal cannula. She's been afebrile. Hemodynamically stable. Blood and sputum cultures reveal no growth. No new labs today. She is currently on bronchodilators, a prednisone taper and Levaquin. On 05/28/2018 patient is seen in follow-up on medical surgical floor. She is calm and comfortable, sitting up in the chair, currently on 5 L per high flow nasal cannula. Denies any worsening dyspnea, her pulse ox is 91%, she is afebrile, hemodynamically stable, she is alert oriented 3. Patient did not require BiPAP support last night. Lung sounds are diminished, with some scattered coarse rales. Lab work today was reviewed, serum sodium is 140, potassium is 3.8, chloride is 89, CO2 is 47, BUN is 17, creatinine 0.46. Cultures remain negative thus far. Today's chest x-ray has been reviewed, and showed increased patchy density in the left upper lobe, and lower lobes. Patient continues on nebulized bronchodilators, oral prednisone, and antibiotic' s. Objective - Vital Signs Vital signs: Vital Signs Temp 98.7 F 05/28/18 08:44 Pulse 72 05/28/18 12:30 Resp 16 05/28/18 12:36 BP 118/58 05/28/18 08:44 Pulse Ox 91 L 05/28/18 08:44 Intake & Output 05/27/18 05/28/18 05/28/18 18:59 06:59 18:59 Other: Voiding Method Incontinent Incontinent Incontinent # Voids 3 0 # Bowel Movements 0 0 - Exam Physical Exam: Revealed a 87-year-old female in no distress, on 4 L nasal cannula. Head: Atraumatic, normocephalic. HEENT:[Neck is supple.] [No neck masses.] [No thyromegaly.] [No JVD.] Chest: [Diminished breath sound bilaterally, no rhonchi, no wheezes noted] Cardiac Exam: [Normal S1 and S2, no S3 gallop, no murmur.] Abdomen: [Soft, nontender, no megaly, no rebound, no guarding, normal bowel sounds.] Extremities: [No clubbing, no edema, no cyanosis.] Neurological Exam: [No focal neurologic deficit. Lymphatics: No lymphadenopathy. Psychiatric: Normal, affect and mental status examination. Skin: No rashes.] - Labs CBC & Chem 7: 05/27/18 09:51 05/28/18 08:34 Labs: Abnormal Lab Results - Last 24 Hours (Table) 05/27/18 05/27/18 05/28/18 Range/Units 17:11 21:04 08:34 Chloride 89 L (98-107) mmol/L Carbon Dioxide 47 H* (22-30) mmol/L Creatinine 0.46 L (0.52-1.04) mg/dL POC Glucose (mg/dL) 147 H 164 H (75-99) mg/dL 05/28/18 Range/Units 11:56 Chloride (98-107) mmol/L Carbon Dioxide (22-30) mmol/L Creatinine (0.52-1.04) mg/dL POC Glucose (mg/dL) 137 H (75-99) mg/dL Microbiology - Last 24 Hours (Table) 05/22/18 17:58 Blood Culture - Preliminary Blood No Growth after 120 hours 05/22/18 16:47 Blood Culture - Preliminary Blood No Growth after 120 hours Assessment and Plan Plan: 1 acute hypoxic and hypercapnic respiratory failure secondary to acute exacerbation of COPD and bilateral community-acquired pneumonia. 2 advanced COPD, FEV1 of 39% at best. 3 history of aortic stenosis, and mitral regurgitation. 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 Recommendation: Continue current plan of treatment, nebulized bronchodilators, antibiotics, oral prednisone. Continue encouraging deep breathing and coughing. The patient is improving, no worsening shortness of breath, no cough, no chest pain , no chest wall tenderness. Cultures remain negative, no fever or chills. We' ll continue to follow I performed a history & physical examination of the patient and discussed their management with my nurse practitioner, Mignon Martinez. I reviewed the nurse practitioner's note and agree with the documented findings and plan of care. Lung sounds are positive for scattered rhonchi. The findings and the impression was discussed with the patient. I attest to the documentation by the nurse practitioner. Time with Patient: Less than 30
[2018-05-28 17:09] LABS: Glucose,Whole Blood 216 mg/dL (75-99)
[2018-05-28] MEDS: LEVOFLOXACIN 750 MG TAB PO SCH (18:15)
[2018-05-28] MEDS: SODIUM CHLORIDE 0.9% 1,000 ML IV SCH (18:21)
[2018-05-28] MEDS: ATORVASTATIN 20 MG TAB PO SCH (20:20)
[2018-05-28 21:05] LABS: Glucose,Whole Blood 136 mg/dL (75-99)
[2018-05-29] MEDS: IPRATROPIUM-ALBUTEROL 3 ML NEB INHALATION SCH ×2 (07:01→10:58)
[2018-05-29 07:06] LABS: Glucose,Whole Blood 108 mg/dL (75-99)
[2018-05-29] MEDS ORDERED: FUROSEMIDE 40 MG TAB PO STA (07:16)
[2018-05-29 07:44] VITALS: BP 134/65; TEMP 98.4
[2018-05-29 08:38] LABS: Blood Urea Nitrogen 15 mg/dL (7-17); Calcium 8.5 mg/dL (8.4-10.2); Chloride 87 mmol/L (98-107); Glucose 91 mg/dL (74-99); Potassium 3.6 mmol/L (3.5-5.1); Sodium 138 mmol/L (137-145)
[2018-05-29 08:46] VITALS: RESP 16
[2018-05-29 08:48] LABS: Anion Gap 0 mmol/L
[2018-05-29 08:49] LABS: Carbon Dioxide 51 mmol/L (22-30)
--- NOTE | 2018-05-29 09:23 | P.DS ---
Providers Date of admission: 05/22/18 12:30 Expected date of discharge: 05/29/18 Attending physician: Cecelia Torres MD Consults: 05/22/18 12:30 Consult Physician Urgent Consulting Provider: Teri Washington Consult Reason/Comments: Hypoxic hypercapnic respiratory failure Do you want consulting provider notified?: Already Contacted Primary care physician: Benjamin Claudia [place] Hospital Course: Discharge Diagnosis: Community-acquired pneumonia, possible gram-negative Acute exacerbation of advanced COPD, Gold stage 3/4 with moderate pulmonary hypertension Acute on chronic hypoxic hypercapnic respiratory failure on chronic home O2 at 2 L nasal cannula Hypertension Dyslipidemia Atherosclerotic coronary artery disease GERD Hospital Course: Patient is an 87 yo CF with a hx of COPD gold stage 3/4 on chronic home O2 at 2L , hypertension, dyslipidemia, and prior myocardial infarction who was transferred here from [facility]. On arrival to [facility] she was unresponsive and was intubated. Initial analysis showed the patient to be tachycardic. She was found to have a white blood cell count of 17.8 and hemoglobin 12.3. She was also found to have slightly elevated BUN/creatinine. Her urinalysis was negative. Troponin was negative. BNP was 464. Lactic acid was 1.6. An influenza A was negative. She underwent a CT head which showed no acute process, CT abdomen and pelvis that showed no acute intra-abdominal process but possible left lower lobe pneumonia. Chest x-ray was negative. She was given IV fluid and doxycycline. Arrangements were made for transfer here. On arrival here an ABG was performed which showed a pH of 7.2 and a pCO2 of 110. Chest x-ray showed ET tube in good position with possible left sided and right lower lobe infiltrate. Repeat ABG showed continue hypercapnia on vent adjustments were made. Chest x-ray showed possible infiltrate and antibiotics were broadened to Levaquin. She was started on steroids, bronchodilators, and antibiotics. Sputum culture was obtained and shows normal respiratory terry. She was subsequently admitted to the ICU. Her PH and CO2 improved on the vent. She was maintained on the aforementioned treatment. She was successfully extubated to BiPAP therapy on 05/24. The night after extubation she did have some confusion and momentarily became hypoxic. She they did well on Bipap. She required bipap intermittently, but has not needed bipap since 05/26. She was still weak when working with therapy. She has progressed well. Her steroids were slowly tapered. Her oxygen requirements were able to be decreased to 3L NC. She was determined to be stable for transfer to detention. She has 1 more day of levaquin therapy to complete and 3 more days of prednisone, repeat CXR in 1 week to ensure clearance of pneumonia. Patient seen and examined at bedside. No shortness of breath, no chest pain, no nausea, no diarrhea, + BM. Excited to be discharged. Vital signs reviewed and stable. General: non toxic, no distress, appears at stated age Derm: warm, dry Head: atraumatic, normocephalic, symmetric Eyes: EOMI, no lid lag, anicteric sclera Mouth: no lip lesion, mucus membranes moist Cardiovascular: S1S2 reg, no murmur, positive posterior tibial pulse bilateral, Lungs: decreased breth sounds bilateral with faint wheeze left base, no rhonchi , no rales , no accessory muscle use Abdominal: soft, nontender to palpation, no guarding, no appreciable organomegaly Ext: no gross muscle atrophy, no edema, no contractures Neuro: CN II-XI grossly intact, no focal neuro deficits Psych: Alert, oriented, appropriate affect A total of 40 minutes of time were spent preparing this complex discharge summary . Pertinent Studies: Echocardiogram EF 55-60%, mild aortic stenosis, moderate to severe mitral regurg , moderate pulmonary hypertension Chest [id number] left upper lobe pneumonia, mild infiltrate right base CT head- no acute process CT abdomen and pelvis- no acute intra-abdominal process but possible left lower lobe pneumonia. Patient Condition at Discharge: Serious Plan - Discharge Summary Discharge Rx Participant: Yes New Discharge Prescriptions: New Albuterol Nebulized [Ventolin Nebulized] 2.5 mg INHALATION RT-QID PRN nebu PRN Reason: Shortness Of Breath Or Wheezing Levofloxacin [Levaquin] 750 mg PO Q24H 1 Days #1 tab predniSONE 20 mg PO DAILY #3 tab Continue Simvastatin [Zocor] 40 mg PO HS Omeprazole 20 mg PO BID Isosorbide Mononitrate ER [Imdur] 60 mg PO DAILY amLODIPine [Norvasc] 10 mg PO DAILY Aspirin [Adult Low Dose Aspirin EC] 81 mg PO DAILY #100 tablet. Ipratropium-Albuterol Nebulize [Duoneb 0.5 mg-3 mg/3 ml Soln] 3 ml INHALATION RT-QID #40 ampul.neb Docusate [Colace] 100 mg PO BID Calcium Carbonate [Calcium] 600 mg PO DAILY Polyethylene Glycol 3350 [Miralax] 17 gm PO BID PRN PRN Reason: Constipation Cholecalciferol [Vitamin D3] 400 unit PO DAILY Vitamin E (Dl,Tocopheryl Acet) [Vitamin E] 400 unit PO DAILY [place]-3 Fatty Acids/Fish Oil [[place]-3 Fish Oil 1,200 mg Sfgl] 1 cap PO DAILY Multivits,Th W-Ca,Fe,Oth Min [Therapeutic M] 1 tab PO DAILY Fluticasone Nasal [place] [Flonase Nasal [place]] 1 spray EA NOSTRIL DAILY Cyanocobalamin (Vitamin B-12) [Vitamin B12] 2,500 mcg PO DAILY Discontinued Metoprolol Tartrate [Lopressor] 25 mg PO BID Fluticasone/Salmeterol [Advair 500-50 Diskus] 1 puff PO RT-BID Discharge Medication List Omeprazole 20 mg PO BID 04/18/16 [History] Simvastatin [Zocor] 40 mg PO HS 04/18/16 [History] Isosorbide Mononitrate ER [Imdur] 60 mg PO DAILY 07/24/16 [History] amLODIPine [Norvasc] 10 mg PO DAILY 07/24/16 [History] Aspirin [Adult Low Dose Aspirin EC] 81 mg PO DAILY #100 tablet. 11/10/17 [Rx] Ipratropium-Albuterol Nebulize [Duoneb 0.5 mg-3 mg/3 ml Soln] 3 ml INHALATION RT -QID #40 ampul.javier 11/10/17 [Rx] Calcium Carbonate [Calcium] 600 mg PO DAILY 05/22/18 [History] Cholecalciferol [Vitamin D3] 400 unit PO DAILY 05/22/18 [History] Cyanocobalamin (Vitamin B-12) [Vitamin B12] 2,500 mcg PO DAILY 05/22/18 [History ] Docusate [Colace] 100 mg PO BID 05/22/18 [History] Fluticasone Nasal [place] [Flonase Nasal [place]] 1 spray EA NOSTRIL DAILY 05/22/18 [History] Multivits, W-Ca,Fe,Oth Min [Therapeutic M] 1 tab PO DAILY 05/22/18 [History] [place]-3 Fatty Acids/Fish Oil [[place]-3 Fish Oil 1,200 mg Sfgl] 1 cap PO DAILY [History] Polyethylene Glycol 3350 [Miralax] 17 gm PO BID PRN 05/22/18 [History] Vitamin E (Dl,Tocopheryl Acet) [Vitamin E] 400 unit PO DAILY 05/22/18 [History] Albuterol Nebulized [Ventolin Nebulized] 2.5 mg INHALATION RT-QID PRN nebu 09/14 [Rx] Levofloxacin [Levaquin] 750 mg PO Q24H 1 Days #1 tab 05/29/18 [Rx] predniSONE 20 mg PO DAILY #3 tab 05/29/18 [Rx] Follow up Appointment(s)/Referral(s): Benjamin Dietrich DO [Primary Care Provider] - 1-2 days Angelito Mosqueda DO [Doctor of Osteopathic Medicine] - 1 Week Activity/Diet/Wound Care/Special Instructions: heart healthy diet Activity as tolerated Continuous O2 at 3L NC Fall Risk Cough and deep breathing every 1 hour Repeat CXR in 1 week. DX: PNA BMP in 4-5 days DX: prerenal azotemia Discharge Disposition: TRANSFER TO SNF/ECF
[2018-05-29] MEDS: INSULIN ASPART 100 UNIT/ML 1 ML 10 ML VIAL SQ SCH ×2 (09:40→12:01)
[2018-05-29] MEDS: CHOLECALCIFEROL 400 UNIT TAB PO SCH (09:42)
[2018-05-29] MEDS: ISOSORBIDE MONONITRATE ER 60 MG TAB.ER.24H PO SCH (09:42)
[2018-05-29] MEDS: CYANOCOBALAMIN 500 MCG TAB PO SCH (09:42)
[2018-05-29] MEDS: DOCUSATE 100 MG CAP PO SCH (09:42)
[2018-05-29] MEDS: predniSONE 20 MG TAB PO SCH (09:42)
[2018-05-29] MEDS: CALCIUM CARBONATE 500 MG CHEWABLE PO SCH (09:43)
[2018-05-29] MEDS: amLODIPine 10 MG TAB PO SCH (09:43)
[2018-05-29] MEDS: ENOXAPARIN 40 MG/0.4 ML SYRINGE SQ SCH (09:43)
[2018-05-29] MEDS: FAMOTIDINE 20 MG TAB PO SCH (09:43)
[2018-05-29] MEDS: ASPIRIN 81 MG PO SCH (09:43)
[2018-05-29] MEDS: FLUTICASONE 50MCG/SPRAY NASAL 16GM EA NOSTRIL SCH (09:44)
[2018-05-29 11:09] VITALS: PULSE 86
[2018-05-29] MEDS: MULTIVITAMINS, THERA 1 EACH TAB PO SCH (12:00)
[2018-05-29 12:03] LABS: Glucose,Whole Blood 104 mg/dL (75-99)
--- NOTE | 2018-05-29 12:14 | P.PN ---
Subjective Progress Note Date: 05/29/18 Principal diagnosis: Acute hypoxic and hypercapnic respiratory failure secondary to an acute exacerbation of chronic obstructive pulmonary disease and marcela. lower lobe pneumonia This is an 87-year-old female patient, with known history of advanced COPDEV1 of 39% of predicted, diffusion capacity of 32% of predicted, whereas been followed up in our office and the patient was brought into the hospital today because of worsening shortness of breath. Apparently the patient was in a good state of health and around 2 days ago she started having cold chills and she was progressively getting more short of breath. This morning, the patient woke up at around 5 AM and she was complaining of shakingAnd worsening dyspnea and she was also noted to have diminished level of consciousness. Based on that, the patient was taken to [facility] and upon arrival she was unresponsive. She was immediately intubated. She was found to have a white cell count of 17.8. Hemoglobin was 12.3. Troponins were negative. BNP level was 464. Lactic acid level was 1.6. Influenza screen was negative. CAT scan of the chest and abdomen showed no acute abnormalities. There was an indication of a possible bibasilar pulmonary infiltrates/pneumonia more so on the left lung base. Based on this, the patient was placed on mechanical ventilator, and she was transferred to [facility] for further evaluation I saw this patient in the ED. She was sedated with Versed drip 1 mg an hour. She was on a mechanical ventilator at the rate of 20, tidal volume of 300, FiO2 of 50% and a PEEP of 5. I increased the rate up to 26. I also increased the flow up to 60. This gave the patient an I:E ratio of 1:4. The patient's blood gases that were done prior to this and change showed a pH of 7.25 with a pCO2 of 92 and pO2 of 74. This was done and FiO2 of 40%. Currently she is on bronchodilators for she is on systemic steroids. He is on IV Solu-Medrol 60 mg every 6 hours. She is also on Levaquin as an empiric antibiotic coverage. No reported aspiration. No reported angina. No reported chest pain. She is known to have previous history of coronary artery disease and she is done coronary artery bypass surgery back in 1993. She has bronchospastic and wheezy. Peak air pressure on the mechanical ventilator 36. Static pressures around 17. ET tube is in a good location at the level of the aortic arch. 3 cm above the cornel. No significant orotracheal secretions. On 05/25/2018, patient remains on BiPAP, IPAP of 12, EPAP of 5, FiO2 is down to 40%, patient's saturations are in the 90s. She seems to be comfortable on BiPAP , however she does desaturate easily on high flow nasal cannula. Remains on antibiotics, bronchodilators, and steroids. Remains quite ill and marginal, however the patient is to be reintubated again, I would strongly recommend tracheostomy and PEG tube placement. Patient remains full code according to the nurses, and this was requested by her daughter who is her legal guardian. CBC is relatively normal. Electrolytes are normal bicarb is elevated as expected at 43. Renal profile remains normal. Chest x-ray shows patchy basilar infiltrates, small effusions, and upper lobe emphysematous changes. Reevaluated today on 05/26/2018, presently on nasal cannula, saturating well, I cut down her FiO2 to 4 L, saturation was in the mid 90s. Patient seems to be comfortable, not on BiPAP presently, but BiPAP remains at bedside. Patient denies any shortness of breath, no cough, no wheezing. All her meds and labs were reviewed, bicarb is 44 as expected. No chest x-ray was done as it was felt to be not necessary. Patient is seen again today 05/27/2018 in follow-up on the regular medical floor. She is currently sitting up in bed. She is awake and alert in no acute distress. She denies any worsening shortness of breath, cough or congestion. She is maintaining good O2 saturations up to 100% on 5 L/m per nasal cannula. She's been afebrile. Hemodynamically stable. Blood and sputum cultures reveal no growth. No new labs today. She is currently on bronchodilators, a prednisone taper and Levaquin. On 05/28/2018 patient is seen in follow-up on medical surgical floor. She is calm and comfortable, sitting up in the chair, currently on 5 L per high flow nasal cannula. Denies any worsening dyspnea, her pulse ox is 91%, she is afebrile, hemodynamically stable, she is alert oriented 3. Patient did not require BiPAP support last night. Lung sounds are diminished, with some scattered coarse rales. Lab work today was reviewed, serum sodium is 140, potassium is 3.8, chloride is 89, CO2 is 47, BUN is 17, creatinine 0.46. Cultures remain negative thus far. Today's chest x-ray has been reviewed, and showed increased patchy density in the left upper lobe, and lower lobes. Patient continues on nebulized bronchodilators, oral prednisone, and antibiotic' s. On 05/29/2018 patient is seen in follow-up on medical surgical floor. She is awake and alert, sitting up in the bedside chair, in no acute distress, currently on 4 L per nasal cannula her pulse ox in the 100%, she is afebrile, no fever no chills, no worsening dyspnea. Lung sounds are are positive for some scattered rales, no wheezes or rhonchi. No new chest x-rays 2 days, today' s BP was reviewed, showed serum sodium of 138, potassium is 3.6, chloride is 87 , CO2 51, BUN 15, creatinine 0.47. Cultures remain negative. Patient has been treated for acute exacerbation of COPD, secondary to pneumonia, for which she required intubation and mechanical ventilation, she was successfully weaned off the ventilator, she has clinically improved, she responded well to medical treatment, her steroids have been tapered, she will continue on oral course of outpatient antibiotics, discharge pending to transfer to long term facility for further therapy in view of patient's generalized weakness. Objective - Vital Signs Vital signs: Vital Signs Temp 98.4 F 05/29/18 07:41 Pulse 86 05/29/18 11:08 Resp 16 05/29/18 08:37 BP 134/65 05/29/18 07:41 Pulse Ox 100 05/29/18 07:41 Intake & Output 05/28/18 05/29/18 05/29/18 18:59 06:59 18:59 Weight 49.9 kg Other: Voiding Method Incontinent Incontinent Incontinent # Voids 3 1 - Exam Physical Exam: Revealed a 87-year-old female in no distress, on 4 L nasal cannula. Head: Atraumatic, normocephalic. HEENT:[Neck is supple.] [No neck masses.] [No thyromegaly.] [No JVD.] Chest: [Diminished breath sound bilaterally, no rhonchi, no wheezes noted] Cardiac Exam: [Normal S1 and S2, no S3 gallop, no murmur.] Abdomen: [Soft, nontender, no megaly, no rebound, no guarding, normal bowel sounds.] Extremities: [No clubbing, no edema, no cyanosis.] Neurological Exam: [No focal neurologic deficit. Lymphatics: No lymphadenopathy. Psychiatric: Normal, affect and mental status examination. Skin: No rashes.] - Labs CBC & Chem 7: 05/27/18 09:51 05/29/18 08:01 Labs: Abnormal Lab Results - Last 24 Hours (Table) 05/28/18 05/28/18 05/29/18 Range/Units 17:07 21:01 06:55 Chloride (98-107) mmol/L Carbon Dioxide (22-30) mmol/L Creatinine (0.52-1.04) mg/dL POC Glucose (mg/dL) 216 H 136 H 108 H (75-99) mg/dL 05/29/18 05/29/18 Range/Units 08:01 12:01 Chloride 87 L (98-107) mmol/L Carbon Dioxide 51 H* (22-30) mmol/L Creatinine 0.47 L (0.52-1.04) mg/dL POC Glucose (mg/dL) 104 H (75-99) mg/dL Microbiology - Last 24 Hours (Table) 05/22/18 17:58 Blood Culture - Final Blood No Growth after 144 hours 05/22/18 16:47 Blood Culture - Final Blood No Growth after 144 hours Assessment and Plan Plan: 1 acute hypoxic and hypercapnic respiratory failure secondary to acute exacerbation of COPD and bilateral community-acquired pneumonia. 2 advanced COPD, FEV1 of 39% at best. 3 history of aortic stenosis, and mitral regurgitation. 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 Recommendation: Patient continues to improve, no acute events overnight, vital signs remain stable, patient has responded well to medical treatment, prednisone has been tapered, patient will continue on outpatient course of oral antibiotics, nebulized bronchodilators, she stable for discharge to long term facility today for further therapy. Follow up with Dr. Washington in the office within 7- 10 days. I performed a history & physical examination of the patient and discussed their management with my nurse practitioner, Mignon Martinez. I reviewed the nurse practitioner's note and agree with the documented findings and plan of care. Lung sounds are positive for scattered rhonchi. The findings and the impression was discussed with the patient. I attest to the documentation by the nurse practitioner. Time with Patient: Less than 30
== END 2018-05-29 13:48 | DRG 208 ==
LOC: EC 12:04 → 2SICU 12:30 → 4MS4W 05-26 14:05
PROVIDERS: ADMIT Family Medicine; ATTEND Family Medicine
PROC: 5A1945Z Respiratory Ventilation, 24-96 Consecutive Hours (ICD-10-PCS; principal; 2018-05-22)
PROC: 5A09357 Assistance with Respiratory Ventilation, Less than 24 Consecutive Hours, Continuous Positive Airway Pressure (ICD-10-PCS; 2018-05-24)
DX: J96.21 Acute and chronic respiratory failure with hypoxia (principal); J15.6 Pneumonia due to other Gram-negative bacteria; J44.1 Chronic obstructive pulmonary disease with (acute) exacerbation; J44.0 Chronic obstructive pulmonary disease with (acute) lower respiratory infection; E87.4 Mixed disorder of acid-base balance; J96.22 Acute and chronic respiratory failure with hypercapnia; I10 Essential (primary) hypertension; I27.22 Pulmonary hypertension due to left heart disease; K52.9 Noninfective gastroenteritis and colitis, unspecified; K21.9 Gastro-esophageal reflux disease without esophagitis; I95.9 Hypotension, unspecified; E78.5 Hyperlipidemia, unspecified; M19.90 Unspecified osteoarthritis, unspecified site; R32 Unspecified urinary incontinence; I25.10 Atherosclerotic heart disease of native coronary artery without angina pectoris; I08.0 Rheumatic disorders of both mitral and aortic valves; Z99.81 Dependence on supplemental oxygen; I25.2 Old myocardial infarction; Z95.1 Presence of aortocoronary bypass graft; Z87.440 Personal history of urinary (tract) infections; Z98.42 Cataract extraction status, left eye; Z98.41 Cataract extraction status, right eye; Z87.891 Personal history of nicotine dependence; Z82.49 Family history of ischemic heart disease and other diseases of the circulatory system; Z79.899 Other long term (current) drug therapy; Z79.82 Long term (current) use of aspirin; Z88.1 Allergy status to other antibiotic agents; Z88.0 Allergy status to penicillin; Z88.2 Allergy status to sulfonamides; Z88.7 Allergy status to serum and vaccine; Z79.51 Long term (current) use of inhaled steroids; Z82.5 Family history of asthma and other chronic lower respiratory diseases; Z90.49 Acquired absence of other specified parts of digestive tract
CPT/HCPCS: 36600; 71045; 80048; 80053; 81001; 82805; 83036; 83605; 83735; 84100; 85025; 85027; 85610; 87040; 87070; 87205; 87449; 87502; 93005; 93306; 94002; 94003; 94640; 94660; 94760; 99291

== ENCOUNTER 2018-06-27 17:10 | Inpatient (IN) | payer MEDICARE, BC ==
[2018-06-27] MEDS ORDERED: LORazepam 2 MG/ML INJ IV STA ×2 (17:27→20:57)
--- NOTE | 2018-06-27 18:33 | ED ---
General Adult HPI - General Chief complaint: Shortness of Breath Stated complaint: COPD Time Seen by Provider: 06/27/18 17:21 Source: EMS Mode of arrival: EMS Limitations: altered mental status - History of Present Illness Initial comments: Dictation was produced using [employer] dictation software. please excuse any grammatical, word or spelling errors. Chief Complaint: 87-year-old female transferred from [place] for dyspnea. History of Present Illness: She is 87-year-old female transferred dyspnea. According to documentation patient was having altered mental status today. Patient is a poor historian. According to EMS they report that she is initially brought the emergency department for one day of confusion. Family is not here at bedside for history at this time. Quit documentation patient did not get up for breakfast today when she fell while he does. Patient is also found to be speaking less. She did appear more tired than usual. 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 - Related Data Home Medications Medication Instructions Recorded Confirmed Omeprazole 20 mg PO BID 04/18/16 05/22/18 Simvastatin [Zocor] 40 mg PO HS 04/18/16 05/22/18 Isosorbide Mononitrate ER [Imdur] 60 mg PO DAILY 07/24/16 05/22/18 amLODIPine [Norvasc] 10 mg PO DAILY 07/24/16 05/22/18 Calcium Carbonate [Calcium] 600 mg PO DAILY 05/22/18 05/22/18 Cholecalciferol [Vitamin D3] 400 unit PO DAILY 05/22/18 05/22/18 Cyanocobalamin (Vitamin B-12) 2,500 mcg PO DAILY 05/22/18 05/22/18 [Vitamin B12] Docusate [Colace] 100 mg PO BID 05/22/18 05/22/18 Fluticasone Nasal [place] [Flonase 1 spray EA NOSTRIL DAILY 05/22/18 05/22/18 Nasal [place]] Multivits,Th W-Ca,Fe,Oth Min 1 tab PO DAILY 05/22/18 05/22/18 [Therapeutic M] [place]-3 Fatty Acids/Fish Oil 1 cap PO DAILY 05/22/18 05/22/18 [[place]-3 Fish Oil 1,200 mg Sfgl] Polyethylene Glycol 3350 [Miralax] 17 gm PO BID PRN 05/22/18 05/22/18 Vitamin E (Dl,Tocopheryl Acet) 400 unit PO DAILY 05/22/18 05/22/18 [Vitamin E] Previous Rx's Medication Instructions Recorded Aspirin [Adult Low Dose Aspirin EC] 81 mg PO DAILY #100 tablet. 11/10/17 Ipratropium-Albuterol Nebulize 3 ml INHALATION RT-QID #40 11/10/17 [Duoneb 0.5 mg-3 mg/3 ml Soln] ampul.neb Albuterol Nebulized [Ventolin 2.5 mg INHALATION RT-QID PRN nebu 05/29/18 Nebulized] Levofloxacin [Levaquin] 750 mg PO Q24H 1 Days #1 tab 05/29/18 predniSONE 20 mg PO DAILY #3 tab 05/29/18 Allergies Allergy/AdvReac Type Severity Reaction Status Date / Time amoxicillin [From Augmentin] Allergy Unknown Unknown Verified 05/22/18 13:16 clavulanic acid Allergy Unknown Unknown Verified 05/22/18 13:16 [From Augmentin] Cephalosporins Allergy Unknown Verified 05/22/18 13:16 sulfamethoxazole Allergy Unknown Verified 05/22/18 13:16 [From Bactrim] tetanus and diphtheria Allergy Itching Verified 05/22/18 13:16 toxoids trimethoprim [From Bactrim] Allergy Unknown Verified 05/22/18 13:16 Review of Systems ROS Statement: Those systems with pertinent positive or pertinent negative responses have been documented in the HPI. ROS Other: All systems not noted in ROS Statement are negative. Past Medical History Past Medical History: Coronary Artery Disease (CAD), COPD, GERD/Reflux, Hyperlipidemia, Hypertension, Myocardial Infarction (DC), Osteoarthritis (OA) Additional Past Medical History / Comment(s): INCONT OF URINE WEARS A PAD, BRONCHITIS, UTI, HOME O2 2 LITERS AT HS, Chronic diarrhea Last Myocardial Infarction Date:: 1993 History of Any Multi-Drug Resistant Organisms: None Reported Past Surgical History: Bladder Surgery, Cholecystectomy, Coronary Bypass/CABG, Heart Catheterization Additional Past Surgical History / Comment(s): CATARACTS Past Anesthesia/Blood Transfusion Reactions: No Reported Reaction Past Psychological History: No Psychological Hx Reported Smoking Status: Former smoker Past Alcohol Use History: None Reported Past Drug Use History: None Reported - Past Family History Father Family Medical History: COPD Additional Family Medical History / Comment(s): EMPHYSEMA Mother Family Medical History: Myocardial Infarction (DC) General Exam - General Exam Comments Initial Comments: PHYSICAL EXAM: General Impression: Lethargic, arousable to pain HEENT: Dry mucous membranes. Cardiovascular: Heart regular rate and rhythm, S1&S2 audible, no murmurs, rubs or gallops Chest: Diminished lung sounds bilaterally Abdomen: Bowel sounds present, abdomen soft, non-tender, non-distended, no organomegaly Musculoskeletal: Pulses present and equal in all extremities, no peripheral edema Motor: Moves all tremors grossly Neurological: , no focal motor or sensory deficits noted Skin: Intact with no visualized rashes Limitations: altered mental status Course Vital Signs 06/27/18 06/27/18 06/27/18 17:24 17:27 18:14 Temperature 97.0 F L Pulse Rate 86 85 Respiratory 20 22 18 Rate Blood Pressure 116/63 O2 Sat by Pulse 99 99 Oximetry 06/27/18 19:17 Temperature Pulse Rate 75 Respiratory 17 Rate Blood Pressure 106/46 O2 Sat by Pulse 98 Oximetry Medical Decision Making - Medical Decision Making ED course: 87-year-old female brought in from [place] emergency Department for higher level of care. Patient was worked up at that facility for altered mental status and shortness of breath. At this point is unknown what patient's baseline mental status is. She is lethargic upon arrival. Documentation from [place] was reviewed. She was started on BiPAP and sent to our facility. Patient was also given breathing treatment and corticosteroids as well as magnesium. Blood gases performed there with a pH of 7.28 pCO2 112 and pO2 247. Her bosses is Dr. Mosqueda. As upon arrival are within normal limits. Patient given some Ativan for mild agitation. BiPAP was reapplied and patient tolerated BiPAP well. Patient appears comfortable at this time. ABG was performed. Patient's patient 7.29, pCO2 is decreased at 89. Bicarb of 41. Pending radiology reading for brain CT. It became mildly agitated on a handful of medications. She is given benzodiazepines for agitation control. The reading BiPAP nicely. Discussed patient case with sharepoint trainer who reports that patient was made no code. States that she is okay for floor. Patient be admitted to medicine. - Lab Data Lab Results 06/27/18 Range/Units 17:48 VBG pH 7.29 L (7.31-7.41) VBG pCO2 89 H* (37-51) mmHg VBG HCO3 41 H (24-28) mmol/L Disposition Clinical Impression: COPD exacerbation, Hypercarbia, CO2 narcosis Disposition: ADMITTED IP TO THIS HOSP Condition: Fair Referrals: Benjamin Dietrich DO [Primary Care Provider] - 1-2 days Decision Time: 21:40
[2018-06-27 19:16] LABS: VBG PH 7.29 (7.31-7.41)
[2018-06-27] MEDS ORDERED: SODIUM CHLORIDE 0.9% 500 ML 500 ML IV STA (21:41)
--- NOTE | 2018-06-27 21:53 | CT ---
EXAMINATION TYPE: CT brain wo con DATE OF EXAM: 06/27/2018 HISTORY: Confusion. CT DLP: 1054.4 mGycm. Automated Exposure Control for Dose Reduction was Utilized. TECHNIQUE: CT scan of the head is performed without contrast. COMPARISON: CT brain 05/22/2018. FINDINGS: There is no acute intracranial hemorrhage or midline shift identified. There is diffuse v entricular and sulcal prominence consistent with diffuse age-related cerebral atrophy. Benign-appear ing calcified dural based abnormality is seen in the right parietal lobe stable compared to study fro m 05/22/2018. Variant anatomy of the septum pellucidum. Slight asymmetry with regard to the size of l ateral ventricles with the right slightly larger than the left. There is low-attenuation in the periv entricular white matter consistent with chronic small vessel ischemic change. The globes are intact and the visualized sinuses are clear. IMPRESSION: No acute intracranial hemorrhage or midline shift.
[2018-06-27] MEDS: methylPREDNISolone SOD SUCCI 125 MG/2 ML VIAL IV SCH (23:54)
[2018-06-28 04:01] LABS: Glucose,Whole Blood 127 mg/dL (75-99)
[2018-06-28] MEDS: methylPREDNISolone SOD SUCCI 125 MG/2 ML VIAL IV SCH ×2 (04:01→10:22)
[2018-06-28 05:39] LABS: Glucose,Whole Blood 148 mg/dL (75-99)
[2018-06-28 06:11] LABS: Anion Gap 6 mmol/L; Blood Urea Nitrogen 20 mg/dL (7-17); Calcium 8.7 mg/dL (8.4-10.2); Carbon Dioxide 40 mmol/L (22-30); Chloride 94 mmol/L (98-107); Glucose 116 mg/dL (74-99); Magnesium 2.4 mg/dL (1.6-2.3); Potassium 5.9 mmol/L (3.5-5.1); Sodium 140 mmol/L (137-145)
[2018-06-28 06:13] LABS: Basophils % (A) 0 %; Eosinophils % (A) 0 %; HCT 40.3 % (34.0-46.0); HGB 12.7 gm/dL (11.4-16.0); Hypochromasia Marked; Lymphocytes # (A) 0.5 k/uL (1.0-4.8); Lymphocytes % (A) 5 %; MCH 31.5 pg (25.0-35.0); MCHC 31.5 g/dL (31.0-37.0); MCV 99.9 fL (80.0-100.0); Mean Platelet Volume 7.5; Monocytes # (A) 0.3 k/uL (0-1.0); Monocytes % (A) 3 %; Neutrophils # (A) 7.8 k/uL (1.3-7.7); Neutrophils % (A) 91 %; Platelet Count 225 k/uL (150-450); RBC 4.03 m/uL (3.80-5.40); RDW 13.3 % (11.5-15.5); WBC 8.6 k/uL (3.8-10.6)
[2018-06-28] MEDS ORDERED: DEXTROSE 50%-WATER 50 ML SYRINGE IVP STA (06:37)
[2018-06-28] MEDS ORDERED: INSULIN REGULAR 100 UNIT/ML VIAL IV ONE (06:45)
[2018-06-28] MEDS ORDERED: CALCIUM GLUCONATE 1,000 MG in SODIUM CHLORIDE 0.9% 100 ML IVPB ONE (07:00)
[2018-06-28] MEDS: INSULIN ASPART 100 UNIT/ML 1 ML 10 ML VIAL SQ SCH ×2 (07:39→12:30)
[2018-06-28] MEDS: IPRATROPIUM-ALBUTEROL 3 ML NEB INHALATION SCH ×4 (08:06→19:20)
[2018-06-28 11:05] VITALS: BP 137/60; TEMP 98.1
[2018-06-28 12:02] LABS: Glucose,Whole Blood 123 mg/dL (75-99)
[2018-06-28] MEDS ORDERED: ATROPINE OPHTH SOLN 1% 5ML BTL SUBLINGUAL PRN (14:11)
[2018-06-28] MEDS ORDERED: ARTIFICIAL TEARS-HYPROMELLOSE DROPS 15 ML BTL BOTH EYES PRN (14:11)
[2018-06-28] MEDS ORDERED: LORazepam 2 MG/ML INJ IV PRN (14:11)
[2018-06-28] MEDS ORDERED: DRY MOUTH SPRAY 44.3 SPRAY/44.3 ML SPRAY MUCOUS MEM PRN (14:11)
--- NOTE | 2018-06-28 14:16 | CONS ---
CONSULTATION An 87-year-old female well known to me. She sees a doctor up in the [place] area, but I see her for her chronic lung disease, both her actually and her as well as her daughter. Anyway, the patient comes in because of shortness of breath. She was apparently up at [facility]. She was therefore shortness of breath and she was very lethargic and sleepy. As it turns out, she had a very elevated CO2 concentration on her blood gas and was thought to have hypercapnic respiratory failure. I spoke to the ER physician yesterday. I told him that the patient was a NO CODE and was not to be intubated and we would try to manage her primarily with BiPAP. Today, I am seeing her in the room. She is on BiPAP. She is doing very poorly. Her daughter is at the bedside. I had a long talk with the daughter about code status. She agrees the patient should not be intubated. We also talked about possible comfort measures. The patient was recently here and saw my partner for similar episode. Since she got discharged on the 10 of June, she has had worsening respiratory status and worsening confusion, disorientation, agitation, and so forth since that time. The patient was so profoundly lethargic yesterday. She could not even hold her head up or hold her nebulizer device. MEDICATIONS: Her medications include omeprazole, Zocor, Imdur, amlodipine, calcium, vitamin D3, vitamin B12, Colace, Flonase nasal spray, multivitamins, omega-3 fatty acids, polyethylene glycol, vitamin E, low-dose aspirin, DuoNeb, Levaquin, prednisone and Symbicort or Advair I believe. ALLERGIES: Are multiple, include AMOXICILLIN, CEPHALOSPORINS, BACTRIM, TETANUS TOXOID AND TRIMETHOPRIM. MEDICAL HISTORY: Includes among other things severe stage IV COPD, CAD, GERD, hyperlipidemia, hypertension, myocardial infarction, DJD, urinary incontinence, chronic hypoxemic respiratory failure, diarrhea. SURGICAL HISTORY: Includes bladder surgery, cholecystectomy, bypass grafting, heart catheterization, cataract surgery. SOCIAL HISTORY: Positive for previous heavy tobacco use. Does not smoke currently. She denies any illicit drug use or alcohol use. FAMILY HISTORY: Positive for myocardial infarction and COPD. REVIEW OF SYSTEMS: Cannot be obtained. Her daughter tells me that over the last couple weeks since her last discharge mid May, she has had progressive deterioration, worsening shortness of breath. She sleeps all day very lethargic, very agitated and combative. Sometimes she is not even able to speak very much. Current vital signs are reviewed temperature is 98.1, heart rate about 100, respiratory rate about 30, blood pressure 137/60, mean 85 and on her BiPAP device at 50% her saturations are 97%. Appears quite agitated. Keeps on trying to rip the mask off. HEENT examination is grossly unremarkable. Difficult to examine because of BiPAP. NECK: Supple. Full range of motion. No adenopathy. Neck veins are flat. Sternocleidomastoid muscles are hypertrophied. Cardiovascular examination reveals a distant heart sounds. Heart rate about 90 beats per minute. S1, S2 normal. No distinct murmur. Lungs reveal diffuse inspiratory and expiratory wheezes and rhonchi. Breath sounds are severely diminished. No crackles. Abdomen is soft. Extremities are intact. Minimal edema. Skin without rash. Neurologic examination is very difficult to evaluate. She is very confused and agitated and very combative. She does move all 4 extremities. LABORATORY DATA: Reviewed. Venous blood gas shows a pH of 7.29, and a PA CO2 of 89. This is after being on BiPAP for an undetermined amount of time. In addition, CBC is normal with a white count of 8.6, hemoglobin 12.7, hematocrit 40.3, platelet count 225,000. Sodium 140, potassium 5.9, chloride 94, CO2 40. Based on the Winter's formula this would likely make her PA CO2 normally right around 70 +/- 2 mmHg. Her BUN and creatinine were 20 and 0.49. Magnesium 2.4. Rest of the labs look okay. There was no actual chest x-ray here. An EKG was noted. A brain CT was negative for anything acute. Medications are reviewed. She is basically getting an insulin per protocol, DuoNeb, Ativan, Solu-Medrol, a basic IV and calcium replacement. ASSESSMENT: 1. Acute hypoxemic and hypercapnic respiratory failure secondary to severe end-stage chronic obstructive pulmonary disease, poorly responsive to usual therapies. 2. Progressive deterioration of the patient's respiratory status since her last discharge from the hospital mid May. 3. Coronary artery disease, status post bypass grafting. 4. Gastroesophageal reflux disease. 5. Hyperlipidemia. 6. Previous myocardial infarction. 7. History of hypertension. 8. History of degenerative joint disease. 9. History of urinary incontinence. PLAN: I had a long talk with the daughter. She understands the gravity of the situation and the seriousness of her mother's health. She is inclined to agree to comfort measures. She certainly has a DNR. She would not benefit all from intubation or mechanical ventilation. She is to have discussions with the rest of the family members and her sisters and make a decision. Currently her is not here. She will have to discuss this with him as well. Additional recommendations and suggestions are forthcoming. I will await input from the family. Prognosis is very poor. I have alerted both the nurse and the primary service. No additional recommendations are made. MMDOM / SUBHA: [id number] /
--- NOTE | 2018-06-28 14:20 | P.DS ---
Providers Date of admission: 06/27/18 21:41 Attending physician: Abdon Martínez Consults: 06/28/18 07:45 Consult Physician Routine Consulting Provider: Angelito Mosqueda Consult Reason/Comments: copd exacerbation, CO2 narcosis Do you want consulting provider notified?: Yes, Notify in am Primary care physician: Bejnamin Taylor [facility] Course: Please refer to my HPI Patient Condition at Discharge: Fair Plan - Discharge Summary New Discharge Prescriptions: No Action Simvastatin [Zocor] 40 mg PO HS Omeprazole 20 mg PO DAILY Isosorbide Mononitrate ER [Imdur] 60 mg PO DAILY Aspirin [Adult Low Dose Aspirin EC] 81 mg PO DAILY #100 tablet. Ipratropium-Albuterol Nebulize [Duoneb 0.5 mg-3 mg/3 ml Soln] 3 ml INHALATION RT-QID #40 ampul.neb Polyethylene Glycol 3350 [Miralax] 17 gm PO DAILY Cholecalciferol [Vitamin D3] 400 unit PO DAILY Vitamin E (Dl,Tocopheryl Acet) [Vitamin E] 400 unit PO DAILY Multivits,Th W-Ca,Fe,Oth Min [Therapeutic M] 1 tab PO DAILY Cyanocobalamin (Vitamin B-12) [Vitamin B12] 2,500 mcg PO DAILY predniSONE 5 mg PO DAILY Potassium Chloride ER [K-Dur 10] 10 meq PO BID Calcium Carbonate 500 mg PO DAILY Discharge Medication List Omeprazole 20 mg PO DAILY 04/18/16 [History] Simvastatin [Zocor] 40 mg PO HS 04/18/16 [History] Isosorbide Mononitrate ER [Imdur] 60 mg PO DAILY 07/24/16 [History] Aspirin [Adult Low Dose Aspirin EC] 81 mg PO DAILY #100 tablet. 11/10/17 [Rx] Ipratropium-Albuterol Nebulize [Duoneb 0.5 mg-3 mg/3 ml Soln] 3 ml INHALATION RT -QID #40 ampul.neb 11/10/17 [Rx] Cholecalciferol [Vitamin D3] 400 unit PO DAILY 05/22/18 [History] Cyanocobalamin (Vitamin B-12) [Vitamin B12] 2,500 mcg PO DAILY 05/22/18 [History ] Multivits,Th W-Ca,Fe,Oth Min [Therapeutic M] 1 tab PO DAILY 05/22/18 [History] Polyethylene Glycol 3350 [Miralax] 17 gm PO DAILY 05/22/18 [History] Vitamin E (Dl,Tocopheryl Acet) [Vitamin E] 400 unit PO DAILY 05/22/18 [History] Calcium Carbonate 500 mg PO DAILY 06/28/18 [History] Potassium Chloride ER [K-Dur 10] 10 meq PO BID 06/28/18 [History] predniSONE 5 mg PO DAILY 06/28/18 [History] Follow up Appointment(s)/Referral(s): Benjamin Dietrich DO [Primary Care Provider] - 1-2 days
--- NOTE | 2018-06-28 14:20 | P.HPIM ---
History of Present Illness 87-year-old female was transferred from [facility] because of confusion found to have CO2 narcosis COPD exacerbation. Patient appears to advanced COPD uses 2.5 L of [place] and patient was on BiPAP here patient's prognosis is extremely poor. Pulmonary evaluated the patient and recommended hospice. I tried to discuss regarding hospice of the family members but family wanted to discuss hospice issue with Dr. Mosqueda from pulmonology. Patient is presently on BiPAP, but restless with the some myoclonic jerks secondary to severe encephalopathy from CO2 narcosis. But family was wishing to continue with BiPAP until rest of the family members are here. She is presently on IV steroids inhalational treatments. I offered high flow nasal cannula oxygen instead of BiPAP but daughter present at the bedside declined and wanted to continue with the BiPAP frontal rest of the family members arrive. Later in the day, he was made aware by the nursing staff that patient family decided on hospice patient probably will need to be general inpatient hospice, hospice services were consulted. Patient was started on comfort medications including IV morphine and Ativan along with nasal cannula oxygen. Patient was switched to DO NOT RESUSCITATE Review of Systems Unable to assess Past Medical History Past Medical History: Coronary Artery Disease (CAD), COPD, GERD/Reflux, Hyperlipidemia, Hypertension, Myocardial Infarction ([place]), Osteoarthritis (OA) Additional Past Medical History / Comment(s): INCONT OF URINE WEARS A PAD, BRONCHITIS, UTI, HOME O2 2 LITERS AT HS, Chronic diarrhea Last Myocardial Infarction Date:: 1993 History of Any Multi-Drug Resistant Organisms: None Reported Past Surgical History: Bladder Surgery, Cholecystectomy, Coronary Bypass/CABG, Heart Catheterization Additional Past Surgical History / Comment(s): CATARACTS Past Anesthesia/Blood Transfusion Reactions: No Reported Reaction Past Psychological History: No Psychological Hx Reported Additional Psychological History / Comment(s): LIVES AT HOME WITH HER SPOUSE, USES WALKER WHEN UP HAS HOME 02 2 1/2 LITERS N/C 17/02 Smoking Status: Former smoker Past Alcohol Use History: None Reported Additional Past Alcohol Use History / Comment(s): STARTED SMOKNG AT AGE 14(1944) , QUIT AGE 63 SMOKED 1 PPD. Past Drug Use History: None Reported - Past Family History Father Family Medical History: COPD Additional Family Medical History / Comment(s): EMPHYSEMA Mother Family Medical History: Myocardial Infarction (NE) Medications and Allergies Home Medications Medication Instructions Recorded Confirmed Type Omeprazole 20 mg PO DAILY 04/18/16 06/28/18 History Simvastatin [Zocor] 40 mg PO HS 04/18/16 06/28/18 History Isosorbide Mononitrate ER [Imdur] 60 mg PO DAILY 07/24/16 06/28/18 History Aspirin [Adult Low Dose Aspirin EC] 81 mg PO DAILY #100 tablet. 11/10/1706/28 Rx Ipratropium-Albuterol Nebulize 3 ml INHALATION RT-QID #40 11/10/17 06/28/18 Rx [Duoneb 0.5 mg-3 mg/3 ml Soln] ampul.neb Cholecalciferol [Vitamin D3] 400 unit PO DAILY 05/22/18 06/28/18 History Cyanocobalamin (Vitamin B-12) 2,500 mcg PO DAILY 05/22/18 06/28/18 History [Vitamin B12] Multivits,Th W-Ca,Fe,Oth Min 1 tab PO DAILY 05/22/18 06/28/18 History [Therapeutic M] Polyethylene Glycol 3350 [Miralax] 17 gm PO DAILY 05/22/18 06/28/18 History Vitamin E (Dl,Tocopheryl Acet) 400 unit PO DAILY 05/22/18 06/28/18 History [Vitamin E] Calcium Carbonate 500 mg PO DAILY 06/28/18 06/28/18 History Potassium Chloride ER [K-Dur 10] 10 meq PO BID 06/28/18 06/28/18 History predniSONE 5 mg PO DAILY 06/28/18 06/28/18 History Allergies Allergy/AdvReac Type Severity Reaction Status Date / Time amoxicillin [From Augmentin] Allergy Unknown Unknown Verified 06/28/18 10:46 clavulanic acid Allergy Unknown Unknown Verified 06/28/18 10:46 [From Augmentin] Cephalosporins Allergy Unknown Verified 06/28/18 10:46 sulfamethoxazole Allergy Unknown Verified 06/28/18 10:46 [From Bactrim] tetanus and diphtheria Allergy Itching Verified 06/28/18 10:46 toxoids trimethoprim [From Bactrim] Allergy Unknown Verified 06/28/18 10:46 Physical Exam Vitals: Vital Signs Temp Pulse Pulse Resp BP BP Pulse Ox 06/28/18 11:54 80 06/28/18 11:40 80 06/28/18 08:20 98.1 F 80 83 18 137/60 97 06/28/18 08:07 80 06/28/18 03:44 82 12 06/28/18 03:41 97.5 F L 82 12 100 06/28/18 00:00 97.8 F 82 12 130/80 100 06/27/18 23:21 76 12 110/43 97 06/27/18 22:20 75 13 101/39 100 06/27/18 21:40 97.4 F L 75 18 90/29 99 06/27/18 19:17 75 17 106/46 98 06/27/18 18:14 85 18 99 06/27/18 17:27 22 06/27/18 17:24 97.0 F L 86 20 116/63 99 Intake and Output 06/27/18 06/28/18 06/28/18 22:59 06:59 14:59 Intake Total 120 Output Total 500 100 Balance -500 20 Intake: IV 120 NS 120 Output: Urine 500 100 Other: Voiding Method Indwelling Catheter Indwelling Catheter Indwelling Catheter Weight 63.503 kg 47.5 kg PHYSICAL EXAMINATION: This physical exam was when I evaluated the patient before she was made hospice GENERAL: Patient has myoclonic jerks on BiPAP with restless sleeping, did not try to arouse her HEENT: Pupils are round and equally reacting to light. CARDIOVASCULAR: S1 and S2 present. No murmurs, rubs, or gallops. PULMONARY: Decreased air entry into bilateral lung carmona ABDOMEN: Soft, nontender, nondistended, normoactive bowel sounds. No palpable organomegaly. MUSCULOSKELETAL: No joint swelling or deformity. EXTREMITIES: No cyanosis, clubbing, or pedal edema. NEUROLOGICAL: Unable to assess SKIN: No rashes. Results CBC & Chem 7: 06/28/18 05:41 06/28/18 08:51 Labs: Abnormal Lab Results - Last 24 Hours (Table) 06/27/18 06/28/18 06/28/18 Range/Units 17:48 04:00 05:38 Neutrophils # (1.3-7.7) k/uL Lymphocytes # (1.0-4.8) k/uL VBG pH 7.29 L (7.31-7.41) VBG pCO2 89 H* (37-51) mmHg VBG HCO3 41 H (24-28) mmol/L Potassium (3.5-5.1) mmol/L Chloride (98-107) mmol/L Carbon Dioxide (22-30) mmol/L BUN (7-17) mg/dL Creatinine (0.52-1.04) mg/dL Glucose (74-99) mg/dL POC Glucose (mg/dL) 127 H 148 H (75-99) mg/dL Magnesium (1.6-2.3) mg/dL 06/28/18 06/28/18 06/28/18 Range/Units 05:41 05:41 08:51 Neutrophils # 7.8 H (1.3-7.7) k/uL Lymphocytes # 0.5 L (1.0-4.8) k/uL VBG pH (7.31-7.41) VBG pCO2 (37-51) mmHg VBG HCO3 (24-28) mmol/L Potassium 5.9 H 5.2 H (3.5-5.1) mmol/L Chloride 94 L (98-107) mmol/L Carbon Dioxide 40 H (22-30) mmol/L BUN 20 H (7-17) mg/dL Creatinine 0.49 L (0.52-1.04) mg/dL Glucose 116 H (74-99) mg/dL POC Glucose (mg/dL) (75-99) mg/dL Magnesium 2.4 H (1.6-2.3) mg/dL 06/28/18 Range/Units 11:59 Neutrophils # (1.3-7.7) k/uL Lymphocytes # (1.0-4.8) k/uL VBG pH (7.31-7.41) VBG pCO2 (37-51) mmHg VBG HCO3 (24-28) mmol/L Potassium (3.5-5.1) mmol/L Chloride (98-107) mmol/L Carbon Dioxide (22-30) mmol/L BUN (7-17) mg/dL Creatinine (0.52-1.04) mg/dL Glucose (74-99) mg/dL POC Glucose (mg/dL) 123 H (75-99) mg/dL Magnesium (1.6-2.3) mg/dL Assessment and Plan Plan: - acute on chronic hypercapnic respiratory failure secondary to COPD exacerbation: Patient patient was on BiPAP, subsequently made hospice. 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
[2018-06-28] MEDS ORDERED: MORPHINE SULFATE (100 MG/2 ML) 100 MG in SODIUM CHLORIDE 0.9% 100 ML IV SCH (15:00)
[2018-06-28] MEDS ORDERED: diphenhydrAMINE 2% CREAM 28.4 GM TUBE TOPICAL PRN (23:02)
[2018-06-29 03:49] VITALS: PULSE 96; RESP 18
== END 2018-06-29 11:31 | disposition hospice, inpatient (51) | DRG 190 ==
LOC: EC 17:10 → 3SCARD 21:41
PROVIDERS: ADMIT Hospitalist; ATTEND Hospitalist
PROC: 5A09357 Assistance with Respiratory Ventilation, Less than 24 Consecutive Hours, Continuous Positive Airway Pressure (ICD-10-PCS; principal; 2018-06-27)
DX: J44.1 Chronic obstructive pulmonary disease with (acute) exacerbation (principal); J96.22 Acute and chronic respiratory failure with hypercapnia; J96.21 Acute and chronic respiratory failure with hypoxia; G92 Toxic encephalopathy; E78.5 Hyperlipidemia, unspecified; I10 Essential (primary) hypertension; I25.10 Atherosclerotic heart disease of native coronary artery without angina pectoris; I25.2 Old myocardial infarction; K21.9 Gastro-esophageal reflux disease without esophagitis; M19.90 Unspecified osteoarthritis, unspecified site; R32 Unspecified urinary incontinence; K52.9 Noninfective gastroenteritis and colitis, unspecified; Z66 Do not resuscitate; Z79.82 Long term (current) use of aspirin; Z79.899 Other long term (current) drug therapy; Z88.0 Allergy status to penicillin; Z88.1 Allergy status to other antibiotic agents; Z88.2 Allergy status to sulfonamides; Z88.8 Allergy status to other drugs, medicaments and biological substances; Z95.1 Presence of aortocoronary bypass graft; Z87.891 Personal history of nicotine dependence; Z90.49 Acquired absence of other specified parts of digestive tract; Z98.42 Cataract extraction status, left eye; Z98.41 Cataract extraction status, right eye; Z96.1 Presence of intraocular lens; Z82.49 Family history of ischemic heart disease and other diseases of the circulatory system; Z82.5 Family history of asthma and other chronic lower respiratory diseases
CPT/HCPCS: 70450; 80048; 82803; 83735; 84132; 85025; 93005; 94640; 94660; 96361; 96374; 96376; 99285

== ENCOUNTER 2018-06-29 10:30 | Inpatient (IN) | payer MEDICAID ==
[2018-06-29] MEDS ORDERED: ACETAMINOPHEN SUPPOSITORY 650 MG SUPP RECTAL PRN (10:58)
[2018-06-29] MEDS ORDERED: ARTIFICIAL TEARS-HYPROMELLOSE DROPS 15 ML BTL BOTH EYES PRN (10:58)
[2018-06-29] MEDS ORDERED: DRY MOUTH SPRAY 44.3 SPRAY/44.3 ML SPRAY MUCOUS MEM PRN (10:58)
[2018-06-29] MEDS ORDERED: ONDANSETRON 4 MG/2 ML VIAL IVP PRN (10:58)
[2018-06-29] MEDS ORDERED: LORazepam 2 MG/ML INJ IV PRN (10:58)
[2018-06-29] MEDS ORDERED: ATROPINE OPHTH SOLN 1% 5ML BTL SUBLINGUAL PRN (10:58)
--- NOTE | 2018-06-29 13:03 | P.HPIM ---
History of Present Illness Patient with advanced COPD uses 2 and half liters of oxygen admitted for COPD exacerbation and CO2 narcosis. Patient was is certainly made hospice patient is presently on hospice services. Review of Systems Irrelevant unable to obtain Past Medical History Past Medical History: Coronary Artery Disease (CAD), COPD, GERD/Reflux, Hyperlipidemia, Hypertension, Myocardial Infarction (OR), Osteoarthritis (OA) Additional Past Medical History / Comment(s): INCONT OF URINE WEARS A PAD, BRONCHITIS, UTI, HOME O2 2 LITERS AT HS, Chronic diarrhea Last Myocardial Infarction Date:: 1993 History of Any Multi-Drug Resistant Organisms: None Reported Past Surgical History: Bladder Surgery, Cholecystectomy, Coronary Bypass/CABG, Heart Catheterization Additional Past Surgical History / Comment(s): CATARACTS Past Anesthesia/Blood Transfusion Reactions: No Reported Reaction Past Psychological History: No Psychological Hx Reported Additional Psychological History / Comment(s): LIVES AT HOME WITH HER SPOUSE, USES WALKER WHEN UP HAS HOME 02 2 1/2 LITERS N/C 17/02 Smoking Status: Former smoker Past Alcohol Use History: None Reported Additional Past Alcohol Use History / Comment(s): STARTED SMOKNG AT AGE 14(1944) , QUIT AGE 63 SMOKED 1 PPD. Past Drug Use History: None Reported - Past Family History Father Family Medical History: COPD Additional Family Medical History / Comment(s): EMPHYSEMA Mother Family Medical History: Myocardial Infarction (OR) Medications and Allergies Home Medications Medication Instructions Recorded Confirmed Type Omeprazole 20 mg PO DAILY 04/18/16 06/29/18 History Simvastatin [Zocor] 40 mg PO HS 04/18/16 06/29/18 History Isosorbide Mononitrate ER [Imdur] 60 mg PO DAILY 07/24/16 06/29/18 History Aspirin [Adult Low Dose Aspirin EC] 81 mg PO DAILY #100 tablet. 11/10/1706/29 Rx Ipratropium-Albuterol Nebulize 3 ml INHALATION RT-QID #40 11/10/17 06/29/18 Rx [Duoneb 0.5 mg-3 mg/3 ml Soln] ampul.neb Cholecalciferol [Vitamin D3] 400 unit PO DAILY 05/22/18 06/29/18 History Cyanocobalamin (Vitamin B-12) 2,500 mcg PO DAILY 05/22/18 06/29/18 History [Vitamin B12] Multivits,Th W-Ca,Fe,Oth Min 1 tab PO DAILY 05/22/18 06/29/18 History [Therapeutic M] Polyethylene Glycol 3350 [Miralax] 17 gm PO DAILY 05/22/18 06/29/18 History Vitamin E (Dl,Tocopheryl Acet) 400 unit PO DAILY 05/22/18 06/29/18 History [Vitamin E] Calcium Carbonate 500 mg PO DAILY 06/28/18 06/29/18 History Potassium Chloride ER [K-Dur 10] 10 meq PO BID 06/28/18 06/29/18 History predniSONE 5 mg PO DAILY 06/28/18 06/29/18 History Allergies Allergy/AdvReac Type Severity Reaction Status Date / Time amoxicillin [From Augmentin] Allergy Unknown Unknown Verified 06/29/18 12:05 clavulanic acid Allergy Unknown Unknown Verified 06/29/18 12:05 [From Augmentin] Cephalosporins Allergy Unknown Verified 06/29/18 12:05 sulfamethoxazole Allergy Unknown Verified 06/29/18 12:05 [From Bactrim] tetanus and diphtheria Allergy Itching Verified 06/29/18 12:05 toxoids trimethoprim [From Bactrim] Allergy Unknown Verified 06/29/18 12:05 Physical Exam Vitals: Intake and Output 06/28/18 06/29/18 06/29/18 22:59 06:59 14:59 Other: Weight 47.5 kg Patient on IV heparin comfortable with a shallow and decreased respirations Not in acute distress, thin built female, not awake Assessment and Plan Plan: -COPD -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
[2018-06-29] MEDS: MORPHINE SULFATE (100 MG/2 ML) 100 MG in SODIUM CHLORIDE 0.9% 100 ML IV SCH ×2 (15:31→15:33)
[2018-06-30 03:18] VITALS: PULSE 101; RESP 12
--- NOTE | 2018-06-30 16:12 | P.DS ---
Providers Date of admission: 06/29/18 11:38 Attending physician: Jose Barnes [facility] Course: Patient today please refer to nursing documentation for time of . Primary cause of COPD patient was on inpatient hospice at the time of Plan - Discharge Summary New Discharge Prescriptions: No Action Simvastatin [Zocor] 40 mg PO HS Omeprazole 20 mg PO DAILY Isosorbide Mononitrate ER [Imdur] 60 mg PO DAILY Aspirin [Adult Low Dose Aspirin EC] 81 mg PO DAILY #100 tablet. Ipratropium-Albuterol Nebulize [Duoneb 0.5 mg-3 mg/3 ml Soln] 3 ml INHALATION RT-QID #40 ampul.neb Polyethylene Glycol 3350 [Miralax] 17 gm PO DAILY Cholecalciferol [Vitamin D3] 400 unit PO DAILY Vitamin E (Dl,Tocopheryl Acet) [Vitamin E] 400 unit PO DAILY Multivits,Th W-Ca,Fe,Oth Min [Therapeutic M] 1 tab PO DAILY Cyanocobalamin (Vitamin B-12) [Vitamin B12] 2,500 mcg PO DAILY predniSONE 5 mg PO DAILY Potassium Chloride ER [K-Dur 10] 10 meq PO BID Calcium Carbonate 500 mg PO DAILY Discharge Medication List Omeprazole 20 mg PO DAILY 04/18/16 [History] Simvastatin [Zocor] 40 mg PO HS 04/18/16 [History] Isosorbide Mononitrate ER [Imdur] 60 mg PO DAILY 07/24/16 [History] Aspirin [Adult Low Dose Aspirin EC] 81 mg PO DAILY #100 tablet. 11/10/17 [Rx] Ipratropium-Albuterol Nebulize [Duoneb 0.5 mg-3 mg/3 ml Soln] 3 ml INHALATION RT -QID #40 ampul.neb 11/10/17 [Rx] Cholecalciferol [Vitamin D3] 400 unit PO DAILY 05/22/18 [History] Cyanocobalamin (Vitamin B-12) [Vitamin B12] 2,500 mcg PO DAILY 05/22/18 [History ] Multivits,Th W-Ca,Fe,Oth Min [Therapeutic M] 1 tab PO DAILY 05/22/18 [History] Polyethylene Glycol 3350 [Miralax] 17 gm PO DAILY 05/22/18 [History] Vitamin E (Dl,Tocopheryl Acet) [Vitamin E] 400 unit PO DAILY 05/22/18 [History] Calcium Carbonate 500 mg PO DAILY 06/28/18 [History] Potassium Chloride ER [K-Dur 10] 10 meq PO BID 06/28/18 [History] predniSONE 5 mg PO DAILY 06/28/18 [History] Discharge Disposition: - Preliminary Cause of Preliminary Cause of : COPD
== END 2018-06-30 10:02 | disposition expired | DRG 951 ==
LOC: 3SCARD 11:38
PROVIDERS: ADMIT Internal Medicine; ATTEND Internal Medicine
DX: Z51.5 Encounter for palliative care (principal); G92 Toxic encephalopathy; J44.1 Chronic obstructive pulmonary disease with (acute) exacerbation; I10 Essential (primary) hypertension; E78.5 Hyperlipidemia, unspecified; K21.9 Gastro-esophageal reflux disease without esophagitis; I25.10 Atherosclerotic heart disease of native coronary artery without angina pectoris; M19.90 Unspecified osteoarthritis, unspecified site; R32 Unspecified urinary incontinence; K52.9 Noninfective gastroenteritis and colitis, unspecified; Z95.1 Presence of aortocoronary bypass graft; Z99.81 Dependence on supplemental oxygen; Z98.49 Cataract extraction status, unspecified eye; Z90.49 Acquired absence of other specified parts of digestive tract; Z87.891 Personal history of nicotine dependence; Z79.82 Long term (current) use of aspirin; Z79.52 Long term (current) use of systemic steroids; Z79.899 Other long term (current) drug therapy; Z88.7 Allergy status to serum and vaccine